=== PATIENT | male | born 1925 | race Caucasian/White ===

== ENCOUNTER 2016-07-03 20:49 | Inpatient (IN) | payer MEDICARE, OTHER ==
[2016-07-03] MEDS ORDERED: Furosemide IV* 10 MG/ML VIAL (40 MG) IV ONE (20:55)
[2016-07-03 21:16] LABS: Hematocrit 40 % (42-52); Hemoglobin 12.9 g/dl (14.0-18.0); Mean Corpuscular HGB Conc 32 g/dl (31-36); Mean Corpuscular Hemoglobin 31 pg (27-31); Mean Corpuscular Volume 95 fL (80-94); Mean Platelet Volume 9 um3 (7.4-10.4); Red Blood Count 4.19 10^6/ul (4.0-5.4); Red Cell Distribution Width 14 % (10.5-15); White Blood Count 7.5 10^3/ul (3.5-10.8)
[2016-07-03 21:33] LABS: Albumin 3.6 g/dL (3.2-5.2); BUN/Creatinine Ratio 12.8 (8-20); Calcium 8.8 mg/dL (8.6-10.3); EGFR African American 54.2 (>60); EGFR Non-African American 42.1 (>60); Globulin 2.4 g/dL (2-4); Total Bilirubin 0.5 mg/dL (0.2-1.0)
[2016-07-03 21:35] LABS: Troponin I 0.02 ng/mL (<0.04)
--- NOTE | 2016-07-03 22:21 | RAD ---
Indication: Shortness of breath. 2 views of the chest demonstrates cardiomegaly. Patient is status post tracer thoracotomy. Pacemaker leads are in place. Interstitial edema consistent with CHF is noted. IMPRESSION: Cardiomegaly. Interstitial edema consistent with CHF is noted. Pacemaker leads are in place.
--- NOTE | 2016-07-03 22:25 | ED ---
Nichole Godoy Anna, scribed for Harris White MD on 07/03/16 at 2100 . Shortness of Breath - HPI Summary HPI Summary: Patient is an 89 y/o male coming to [facility] presenting with the gradual onset of SOB that began quite some time ago. He wakes up at night unable to breathe. Per EMS, the patient had an episode of respiratory distress en route to [facility]. They report his history is significant for CHF and he has bilateral leg edema. The staff at his alf described him as clammy. He denies chest pain. He moved to [place] one month ago from [facility] and reports that he has been changing doctors. He has an appointment scheduled for a PCP in six days. He reports GI issues at baseline, including bloating. He has not had a regular BM in one month. - History of Current Complaint Hx Obtained From: Patient, EMS Onset/Duration: Gradual Onset, Still Present Current Severity: Moderate - Allergy/Home Medications Allergies/Adverse Reactions: Allergies Allergy/AdvReac Type Severity Reaction Status Date / Time Clarithromycin [From Biaxin] Allergy GI Upset Verified 07/03/16 21:21 Spironolactone Allergy Unknown Verified 07/03/16 21:42 Reaction Details Home Medications: Home Medications Albuterol HFA INHALER* [Ventolin HFA Inhaler*] 1 puff INH Q4H PRN 07/03/16 [ History Confirmed 07/03/16] Aspirin [Aspirin 81 MG TAB] 81 mg PO DAILY 07/03/16 [History Confirmed 07/03/16] Budesonide/Formote 160/4.5(NF) [Symbicort 160/4.5 (NF)] 1 puff INH BID 07/03/16 [History Confirmed 07/03/16] Furosemide [Lasix] 20 mg PO DAILY 07/03/16 [History Confirmed 07/03/16] Isosorbide Mononitrate (NF) 07/03/16 [History] Levothyroxine TAB* [Synthroid TAB*] 137 mcg PO DAILY 07/03/16 [History Confirmed 07/03/16] Metoprolol Tartrate 75 mg PO BEDTIME 07/03/16 [History Confirmed 07/03/16] Metoprolol Tartrate [Lopressor] 100 mg PO DAILY 07/03/16 [History Confirmed 10/12] Multiple Vitamins W/ Minerals [Multivitamin Men] 1 tab PO DAILY 07/03/16 [ History Confirmed 07/03/16] [place] 3 Fatty Wwanu-Gobtwr-Ecv [[facility]] 1 cap PO DAILY 07/03/16 [ History] Omeprazole [Prilosec] 20 mg PO DAILY 07/03/16 [History Confirmed 07/03/16] Simvastatin TAB(NF) [Zocor(NF)] 20 mg PO BEDTIME 07/03/16 [History Confirmed 10/12] Tamsulosin CAP* [Flomax CAP*] 0.4 mg PO BEDTIME 07/03/16 [History Confirmed 10/12] PMH/Surg Hx/FS Hx/Imm Hx Cardiovascular History: Reports: Hx Congestive Heart Failure, Hx Hypercholesterolemia, Hx Hypertension Respiratory History: Reports: Hx Chronic Obstructive Pulmonary Disease (COPD) GI History: Reports: Hx Gastroesophageal Reflux Disease History: Reports: Other Problems/Disorders - CKD - Family History Known Family History: Positive: Cardiac Disease - Hx CAD <55 in two older brothers, Hypertension - Social History Occupation: Retired Lives: [facility] Hx Substance Use: No Substance Use Type: Reports: None Review of Systems Positive: Skin Diaphoresis - per [facility] staff Negative: Chest Pain Positive: Shortness Of Breath Gastrointestinal: Other - irregular BM, baseline for one month Positive: Edema - bilateral leg All Other Systems Reviewed And Are Negative: Yes Physical Exam Triage Information Reviewed: Yes Vital Signs On Initial Exam: Temp Pulse Resp BP Pulse Ox 97.1 F 74 18 122/61 99 07/03/16 21:21 07/03/16 21:21 07/03/16 21:21 07/03/16 21:21 07/03/16 21:21 Vital Signs Reviewed: Yes Appearance: Positive: Well-Appearing - moderate sob, No Pain Distress Skin: Positive: Warm Head/Face: Positive: Normal Head/Face Inspection Eyes: Positive: DOMINIQUE ENT: Positive: Hearing grossly normal Neck: Positive: Supple Respiratory/Lung Sounds: Positive: Breath Sounds Present, Decreased Breath Sounds, Rales - bibasilar Cardiovascular: Positive: RRR Abdomen Description: Positive: Nontender, Soft Musculoskeletal: Positive: Strength/ROM Intact, Edema Left, Edema Right - bilat 3+ pitting edema Neurological: Positive: Alert, Oriented to Person Place, Time Psychiatric: Positive: Affect/Mood Appropriate Diagnostics - Vital Signs Vital Signs Temp Pulse Resp BP Pulse Ox 07/03/16 22:10 69 16 126/73 100 07/03/16 22:00 71 18 98 07/03/16 21:31 70 19 98 07/03/16 21:30 132/72 07/03/16 21:21 97.1 F 74 18 122/61 99 07/03/16 20:57 97.1 F 77 20 120/95 100 - Laboratory Lab Results: Lab Results 07/03/16 07/03/16 07/03/16 Range/Units 21:03 21:03 21:03 WBC 7.5 (3.5-10.8) 10^3/ul RBC 4.19 (4.0-5.4) 10^6/ul Hgb 12.9 L (14.0-18.0) g/dl Hct 40 L (42-52) % MCV 95 H (80-94) fL MCH 31 (27-31) pg MCHC 32 (31-36) g/dl RDW 14 (10.5-15) % Plt Count 194 (150-450) 10^3/ul MPV 9 (7.4-10.4) um3 Neut % (Auto) 73.3 (38-83) % Lymph % (Auto) 15.1 L (25-47) % [place] % (Auto) 8.0 (1-9) % Eos % (Auto) 2.2 (0-6) % Baso % (Auto) 1.4 (0-2) % Absolute Neuts (auto) 5.5 (1.5-7.7) 10^3/ul Absolute Lymphs (auto) 1.1 (1.0-4.8) 10^3/ul Absolute Monos (auto) 0.6 (0-0.8) 10^3/ul Absolute Eos (auto) 0.2 (0-0.6) 10^3/ul Absolute Basos (auto) 0.1 (0-0.2) 10^3/ul Absolute Nucleated RBC 0.01 10^3/ul Nucleated RBC % 0.1 INR (Anticoag Therapy) (0.89-1.11) Sodium 135 (133-145) mmol/L Potassium 4.0 (3.5-5.0) mmol/L Chloride 102 (101-111) mmol/L Carbon Dioxide 27 (22-32) mmol/L Anion Gap 6 (2-11) mmol/L BUN 20 (6-24) mg/dL Creatinine 1.56 H (0.67-1.17) mg/dL Est GFR ( Amer) 54.2 (>60) Est GFR (Non-Af Amer) 42.1 (>60) BUN/Creatinine Ratio 12.8 (8-20) Glucose 132 H (70-100) mg/dL Lactic Acid 1.9 (0.5-2.0) mmol/L Calcium 8.8 (8.6-10.3) mg/dL Total Bilirubin 0.50 (0.2-1.0) mg/dL AST 8 L (13-39) U/L ALT 7 (7-52) U/L Alkaline Phosphatase 45 (34-104) U/L Troponin I 0.02 (<0.04) ng/mL B-Natriuretic Peptide ( - 100) pg/mL Total Protein 6.0 L (6.4-8.9) g/dL Albumin 3.6 (3.2-5.2) g/dL Globulin 2.4 (2-4) g/dL Albumin/Globulin Ratio 1.5 (1-3) Influenza A (Rapid) (Negative) Influenza B (Rapid) (Negative) 07/03/16 07/03/16 07/03/16 Range/Units 21:03 21:03 21:21 WBC (3.5-10.8) 10^3/ul RBC (4.0-5.4) 10^6/ul Hgb (14.0-18.0) g/dl Hct (42-52) % MCV (80-94) fL MCH (27-31) pg MCHC (31-36) g/dl RDW (10.5-15) % Plt Count (150-450) 10^3/ul MPV (7.4-10.4) um3 Neut % (Auto) (38-83) % Lymph % (Auto) (25-47) % [place] % (Auto) (1-9) % Eos % (Auto) (0-6) % Baso % (Auto) (0-2) % Absolute Neuts (auto) (1.5-7.7) 10^3/ul Absolute Lymphs (auto) (1.0-4.8) 10^3/ul Absolute Monos (auto) (0-0.8) 10^3/ul Absolute Eos (auto) (0-0.6) 10^3/ul Absolute Basos (auto) (0-0.2) 10^3/ul Absolute Nucleated RBC 10^3/ul Nucleated RBC % INR (Anticoag Therapy) 0.94 (0.89-1.11) Sodium (133-145) mmol/L Potassium (3.5-5.0) mmol/L Chloride (101-111) mmol/L Carbon Dioxide (22-32) mmol/L Anion Gap (2-11) mmol/L BUN (6-24) mg/dL Creatinine (0.67-1.17) mg/dL Est GFR ( Amer) (>60) Est GFR (Non-Af Amer) (>60) BUN/Creatinine Ratio (8-20) Glucose (70-100) mg/dL Lactic Acid (0.5-2.0) mmol/L Calcium (8.6-10.3) mg/dL Total Bilirubin (0.2-1.0) mg/dL AST (13-39) U/L ALT (7-52) U/L Alkaline Phosphatase (34-104) U/L Troponin I (<0.04) ng/mL B-Natriuretic Peptide 278 H ( - 100) pg/mL Total Protein (6.4-8.9) g/dL Albumin (3.2-5.2) g/dL Globulin (2-4) g/dL Albumin/Globulin Ratio (1-3) Influenza A (Rapid) Negative (Negative) Influenza B (Rapid) Negative (Negative) Result Diagrams: 07/03/16 21:03 07/03/16 21:03 Lab Statement: Any lab studies that have been ordered have been reviewed, and results considered in the medical decision making process. - Radiology CXR Xray Interpretation: Positive (See Comments) Radiology Interpretation Completed By: Radiologist - IMPRESSION: Cardiomegaly. Interstitial edema consistent with CHF is noted. Pacemaker leads are in place. - EKG 2121 Cardiac Rate: NL - [address] Segment: Normal Ectopy: None EKG Interpretation: paced rhythm with 1:1 ventricular conduction. Re-Evaluation - Re-Evaluation First Eval Change: Improved - mildly improved but still sob Course/Dx - Course Assessment/Plan: Patient is an 89 y/o male coming to [facility] presenting with the gradual onset of SOB that began quite some time ago. He wakes up at night unable to breathe. Per EMS, the patient had an episode of respiratory distress en route to [facility]. They report his history is significant for CHF and he has bilateral leg edema. The staff at his alf described him as clammy. He denies chest pain. He moved to [place] one month ago from [facility] and reports that he has been changing doctors. He has an appointment scheduled for a PCP in six days. He reports GI issues at baseline, including bloating. He has not had a regular BM in one month. The patient was given Furosemide IV in the ED course. Labs reveal BNP of 278, AST of 8, Hgb of 12.9, Hct of 40, MCV of 95, Creatinine of 1.56, Glucose of 132, and total protein of 6.0. EKG reveals paced rhythm at 70 bpm with 1:1 ventricular conduction. CXR reveals cardiomegaly. Interstitial edema consistent with CHF is noted. Pacemaker leads are in place. Discussed patient care with Dr. Dietrich (hospitalist ) at 2320. Agrees to accept patient for admission. Patient is agreeable with plan. - Diagnoses Provider Diagnoses: CHF (congestive heart failure) - Physician Notifications Discussed Care of Patient With: Dr. Dietrich (hospitalist) at 2320. Agrees to accept patient for admission. Instructed by Provider To: Admit As Inpatient - Critical Care Time Critical Care Time: 30-74 min Discharge - Discharge Plan Condition: Fair Disposition: ADMITTED TO [facility] documentation as recorded by the Nichole elliott Anna accurately reflects the service I personally performed and the decisions made by me, Harris White MD.
[2016-07-03] MEDS ORDERED: Senna TAB PO PRN (23:24)
[2016-07-03] MEDS ORDERED: Acetaminophen TAB* 325 MG PO PRN (23:24)
[2016-07-03] MEDS ORDERED: Ondansetron INJ* 2 MG/ML VIAL IV PRN (23:24)
[2016-07-03] MEDS ORDERED: Docusate CAP* 100 MG PO PRN (23:24)
[2016-07-03] MEDS ORDERED: Al Hydrox/Mg Hydrox/Simet LIQ* 30 ML UDC PO PRN (23:24)
[2016-07-03] MEDS ORDERED: Albuterol HFA INHALER* 8 gm MDI INH PRN (23:32)
[2016-07-03] MEDS ORDERED: Vancomycin(*) 0 MG in NS 0.9% 250 ML* 250 ML IVPB SCH (23:45)
[2016-07-03] MEDS ORDERED: Vancomycin(*) 1,500 MG in NS 0.9% 250 ML* 250 ML IVPB ONE (23:45)
[2016-07-03] MEDS ORDERED: Vancomycin per Pharmacy* NOTE FOLLOW UP SCH (23:45)
[2016-07-03] MEDS ORDERED: Atorvastatin* 10 MG TAB PO SCH (23:45)
[2016-07-04 00:05] LABS: C Reactive Protein 1.03 mg/L (< 5.00); Magnesium 2.2 mg/dL (1.9-2.7)
[2016-07-04] MEDS: Tamsulosin CAP* 0.4 MG PO SCH ×3 (01:11→20:21)
--- NOTE | 2016-07-04 03:25 | HP ---
CC: Mati Yoon MD HISTORY AND PHYSICAL: DATE OF ADMISSION: 07/03/16 PRIMARY CARE PHYSICIAN: Mati Yoon MD TIME OF EVALUATION: 2300 CHIEF COMPLAINT: Shortness of breath. HISTORY OF PRESENT ILLNESS: This is an 89-year-old male with a past medical history of CHF, COPD, and CKD, who presents to the emergency department from [place] with worsening shortness of breath. The patient states he has had over the past month worsening abdominal distention, lower extremity swelling, and worsening orthopnea, and paroxysmal nocturnal dyspnea. He states every time he lies down or bends over, he has significant amount of shortness of breath. He has had weight gain of 15 pounds over the past month. He has had decrease in appetite. He has been complaining of issues with his stools. He has had loose stools with lot of gas and slimy stool. He has been maintaining a lactulose free diet. He states that he has been sent to see Gastroenterology for potential an EGD and he is transitioning to a new hiv/aids care nurse as the patient was recently moved from [facility] in April to [facility] for more assistance. The patient was recently seen for his cellulitis of lower extremities and was started on antibiotic on the , unclear what the antibiotic was. He states as mentioned had decrease in appetite. He had an egg salad sandwich. He states he occasionally add salt to his soup, but denies any high salty food content. He denies any chest pain. No cough, no fevers or chills. He has had intermittent nausea, no vomiting, otherwise remaining review of systems negative. In the emergency room, the patient had labs, imaging. He was given 40 mg of Lasix IV and was referred to the hospitalist service for further evaluation. PAST MEDICAL HISTORY: 1. History of coronary artery disease, status post coronary artery bypass graft in 2002 and multiple stent placements. He is currently being transitioned of hiv/aids care nurse from Dr. Byrd in [place] to Dr. Mars. 2. History of CHF with preserved EF. 3. COPD. 4. CKD. 5. Osteoarthritis. 6. GERD. 7. Hyperlipidemia. 8. Chronic lymphedema. 9. BPH. 10. Obstructive sleep apnea, on CPAP. 11. 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 12. Hypertension. 13. Hypothyroidism. 14. Obesity. 15. Neuropathy. PAST SURGICAL HISTORY: History of pacemaker and ICD placement and as mentioned , coronary artery bypass graft in 2002. MEDICATIONS: 1. Metoprolol tartrate 100 mg p.o. daily. 2. Synthroid 137 mcg p.o. daily. 3. Lasix 20 mg daily. 4. Aspirin 81 mg daily. 5. Symbicort 160/4.5 one puff inhaled b.i.d. 6. Albuterol 1 puff every 4 hours as needed. 7. Multivitamin daily. 8. Tamsulosin 0.4 mg p.o. at bedtime. 9. Zocor 20 mg at bedtime. 10. Prilosec 20 mg daily. 11. Metoprolol tartrate 75 mg at bedtime. 12. Isosorbide mononitrate daily. 13. [place] 3 fatty acids daily. ALLERGIES: CLARITHROMYCIN, SPIRONOLACTONE. FAMILY HISTORY: Mother in her 70s from an [place]. Father from alcohol complications. SOCIAL HISTORY: As mentioned, the patient recently transitioned from independent living in [place] to [facility]. He is wheelchair bound. His healthcare proxy is his daughter, Deborah Kidd. Phone number [phone]. CODE STATUS: DNR/DNI. MOLST form will be completed this evening. He is a remote smoker of [id number], quit in 1966. No alcohol use, no illicit drug use. He is a [employer] [place] [employer] . REVIEW OF SYSTEMS: As mentioned in the HPI. PHYSICAL EXAMINATION GENERAL: In no acute distress. Resting comfortably with the family at the bedside. VITAL SIGNS: Temp 97.1, pulse rate 80, respiratory rate 17, oxygen saturation 95% on 2 L, blood pressure 141/71. HEENT: Pupils are equal and reactive, anicteric. Head normocephalic. Oropharynx, mucous membranes moist. No erythema or exudate NECK: Supple. No lymphadenopathy. RESPIRATORY: Diminished breath sounds. Bibasilar crackles. CARDIAC: Regular rate and rhythm. Soft systolic murmur heard throughout. ABDOMEN: Significant at distention. Tenderness diffusely. More pronounced tenderness over the left side. EXTREMITIES: +2 pretibial edema with bilateral erythema. The patient with a 2 cm purulent lesion on the left lower medial aspect of the extremity and he has a 2 cm purulent lesion on the right lateral aspect of the lower extremity. Distal pulses. NEUROLOGIC: Alert and oriented x3. No focal neurologic deficits. LABORATORY DATA: White count 7.5, hemoglobin 12.9, hematocrit 40, platelet 194. INR is 0.94. Sodium 135, potassium 4, chloride 102, bicarb 27, BUN 20, creatinine 1.56, glucose 132, troponin 0.02, BNP 278. Flu is negative. RADIOGRAPHIC DATA: Chest x-ray: Cardiomegaly, interstitial edema consistent with CHF as noted. EKG shows atrial-sensed, ventricular-paced complexes. ASSESSMENT: This is an 89-year-old male with past medical history of congestive heart failure, coronary artery disease, and chronic kidney disease, who presents to the emergency room with abdominal distention, pain, and shortness of breath and lower extremity swelling. 1. Shortness of breath. Assessment: The patient's shortness of breath is most likely associated with acute decompensated congestive heart failure. I suspect he has ascites. He has significant amount of lymphedema and orthopnea. He has not had a recent echocardiogram according to the family, it will be worthwhile to reevaluate this. He has no chest pain to suggest any ischemic event. It appears that he has had decreased appetite and low salt intake. It is unclear the etiology behind the onset of his heart failure. Plan: We will admit him to telemetry. We will trend his troponin. Obtain an echocardiogram. Low salt diet. Fluid restriction. I's and O's and daily weights and we will continue on Lasix 40 mg IV daily. We will obtain his records from his hiv/aids care nurse as well. We will continue him on his metoprolol as prescribed and his aspirin. 2. Abdominal pain: Assessment: I suspect most of this is secondary to ascites from his heart failure. Although he has had abnormal stools and abdominal pain, which is not all typical with ascites and the patient was planning to go to humanities professor for further evaluation. Plan: I do not think it is unreasonable to obtain a CAT scan to rule out any new further etiology behind his abdominal discomfort. I am also ordering a C. diff as the patient was recently started on antibiotics for his cellulitis. 3. Chronic lymphedema with purulent drainage. Assessment: The patient with significant lymphedema and 2 purulent lesions on each lower extremity. We will put in for wound culture and wound care evaluation and start him on vancomycin until the culture returns and Fredy wrap his lower extremities in hopes Lasix will also help with swelling as well. CHRONIC MEDICAL PROBLEMS: 1. COPD. Resume his inhalers as prescribed. 2. Hyperlipidemia. Continue Zocor. 3. GERD. Continue with Prilosec. 4. Hypothyroidism. Resume his Synthroid. 5. CAD. As mentioned, we will resume his metoprolol. We will increase his Lasix and his baby aspirin. 6. Obstructive sleep apnea. Resume CPAP at bedtime. 7. FEN. As mentioned, low salt. Fluid restricted. Heart healthy diet. 8. DVT prophylaxis. The patient scores high risk. I will place him on heparin subcu t.i.d. 9. Code status. The patient is a DNR/DNI. We will fill out a MOLST form this evening. PATIENT TIME: Greater than 60 minutes spent doing the history and physical, more than half time spent in direct patient contact. [id number]/CPS #: [id number] AGUSTIN
[2016-07-04 04:03] LABS: Urine Bilirubin Negative (Negative); Urine Glucose Negative (Negative); Urine Nitrite Negative (Negative)
[2016-07-04 05:58] LABS: Hematocrit 38 % (42-52); Hemoglobin 12.5 g/dl (14.0-18.0); Mean Corpuscular HGB Conc 33 g/dl (31-36); Mean Corpuscular Hemoglobin 31 pg (27-31); Mean Corpuscular Volume 94 fL (80-94); Mean Platelet Volume 8 um3 (7.4-10.4); Red Blood Count 4.07 10^6/ul (4.0-5.4); Red Cell Distribution Width 14 % (10.5-15); White Blood Count 6.8 10^3/ul (3.5-10.8)
[2016-07-04 06:37] LABS: BUN/Creatinine Ratio 13.2 (8-20); Calcium 8.7 mg/dL (8.6-10.3); EGFR African American 56.2 (>60); EGFR Non-African American 43.7 (>60); Potassium 3.5 mmol/L (3.5-5.0)
[2016-07-04] MEDS: Levothyroxine TAB* 137 MCG TAB PO SCH (06:51)
[2016-07-04] MEDS: Heparin VIAL(*) 5000 UNITS/ML VIAL (FIVE THOUSAND) SUBCUT SCH ×3 (06:51→22:05)
--- NOTE | 2016-07-04 07:16 | RAD ---
INDICATION: 89-year-old with abdominal pain COMPARISON: None TECHNIQUE: Noncontrast axial source images were acquired from the level hemidiaphragms to the symphysis pubis. The examination was ordered with oral contrast only. Lung bases: There is cardiomegaly with sternotomy and pacemaker artifact. There is mild basilar atelectasis with a moderate size right-sided pleural effusion and a tiny left-sided effusion Liver: The liver is normal in size. Noncontrast imaging shows no evidence of a hepatic mass or ductal dilatation. Gallbladder: Cholecystectomy. Spleen: The spleen is normal in size. The noncontrast CT appearance is normal. Pancreas: Noncontrast imaging shows no pancreatic mass or ductal dilitation. The pancreas is atrophic and largely fatty replaced Adrenal glands: No masses are identified. Kidneys/Bladder: There is no evidence of nephrolithiasis or CT evidence of hydronephrosis. Noncontrast imaging shows no evidence of a renal mass. The bladder is unremarkable.. Adenopathy: There is no evidence of intraperitoneal or retroperitoneal adenopathy. Evaluation is limited without oral contrast. Fluid collections: There are no free or localized fluid collections. Vessels: There are atherosclerotic changes of the aorta and iliac vessels. There is no focal aneurysm. The IVC appears normal Pelvic organs: The prostate is enlarged GI tract: Evaluation of the bowel is limited without oral contrast. The stomach and small bowel are unremarkable. There is moderate stool throughout the colon with colonic redundancy There are no obstructive findings. The appendix is visualized and appears normal. Soft tissues: No soft tissue abnormalities of the extraperitoneal abdomen or pelvis are identified. Osseous structures: There are no acute osseous findings. IMPRESSION: 1. Mild bibasilar atelectasis with pleural effusions right greater than left. 2. Cholecystectomy 3. Moderate retained stool with colonic redundancy. 4. No acute CT findings. No mass or inflammatory changes.
[2016-07-04] MEDS ORDERED: Metoprolol Tartrate TAB* 100 MG TAB PO ONE (09:00)
[2016-07-04] MEDS ORDERED: Metoprolol Tartrate TAB* 100 MG TAB PO SCH (09:00)
[2016-07-04] MEDS ORDERED: Metoprolol Tartrate TAB* 50 mg PO SCH ×2 (09:00→21:00)
[2016-07-04] MEDS: Aspirin EC Low Dose* 81 MG TAB.EC PO SCH (09:14)
[2016-07-04] MEDS: Furosemide IV* 10 MG/ML VIAL (40 MG) IV SCH (09:14)
[2016-07-04] MEDS: Isosorbide Mononitrate ER TAB* 30 MG PO SCH (09:14)
[2016-07-04] MEDS: Potassium Chlor TAB* 20 MEQ TAB.ER PO SCH (09:14)
[2016-07-04] MEDS: Omeprazole CAP* 20 MG PO SCH (09:14)
[2016-07-04] MEDS: Mometasone/Formoter 200/5 MDI INH SCH ×2 (10:01→20:05)
--- NOTE | 2016-07-04 15:29 | PN ---
Subjective Date of Service: 07/04/16 Interval History: . Interviewed and examined patient at bedside; Discussed case with Dr. Dietrich ; Reviewed previous notes and radiology results; patient feeling better -- still can't lie flat. denies CP. doesn't walk, so judging his orthopnea U-out good overnight -- another IV lasix dose given this AM. Family History: Unchanged from Admission Social History: Unchanged from Admission Past Medical History: Unchanged from Admission Objective Active Medications: . Acetaminophen (Tylenol Tab*) 650 mg PO Q4H PRN PRN Reason: FEVER/PAIN Last Admin: 07/04/16 09:24 Dose: 650 mg Al Hydrox/Mg Hydrox/Simethicone (Maalox Plus*) 30 ml PO Q6H PRN PRN Reason: INDIGESTION Albuterol (Ventolin Hfa Inhaler*) 1 puff INH Q4H PRN PRN Reason: WHEEZING Aspirin (Aspirin Ec Low Dose*) 81 mg PO DAILY [facility] Last Admin: 07/04/16 09:14 Dose: 81 mg Atorvastatin Calcium (Lipitor*) 10 mg PO 2100 [facility] Docusate Sodium (Colace Cap*) 100 mg PO BID PRN PRN Reason: CONSTIPATION Furosemide (Lasix Iv*) 40 mg IV DAILY [facility] Last Admin: 07/04/16 09:14 Dose: 40 mg Heparin Sodium (Porcine) (Heparin Vial(*)) 5,000 units SUBCUT Q8HR [facility] Last Admin: 07/04/16 14:55 Dose: 5,000 units Vancomycin HCl 1,500 mg/ (Sodium Chloride) 250 mls @ 166.667 mls/hr IVPB Q24H [facility] Isosorbide Mononitrate (Imdur Er Tab*) 30 mg PO DAILY [facility] Last Admin: 07/04/16 09:14 Dose: 30 mg Levothyroxine Sodium (Synthroid Tab*) 137 mcg PO 0600 [facility] Last Admin: 07/04/16 06:51 Dose: 137 mcg Metoprolol Tartrate (Lopressor Tab*) 75 mg PO BEDTIME [facility] Mometasone Furoate/Formoterol Fumar (Dulera 200/5 Mdi*) 1 puff INH BID [facility] PRN Reason: Protocol Last Admin: 07/04/16 10:01 Dose: 1 puff Omeprazole (Prilosec Cap*) 20 mg PO DAILY [facility] Last Admin: 07/04/16 09:14 Dose: 20 mg Ondansetron HCl (Zofran Inj*) 4 mg IV Q4H PRN PRN Reason: NAUSEA/VOMITING Pharmacy Consult (Vancomycin Per Pharmacy*) 1 note FOLLOW UP .VANC PER PHARMACY [facility] Pharmacy Profile Note (Vancomycin Trough Check) 1 note FOLLOW UP 0145 ONE Stop: 07/07/16 01:46 Potassium Chloride (Klor Con Er Tab*) 20 meq PO DAILY [facility] Last Admin: 07/04/16 09:14 Dose: 20 meq Senna (Senokot Tab*) 1 tab PO BID PRN PRN Reason: CONSTIPATION Tamsulosin HCl (Flomax Cap*) 0.4 mg PO BEDTIME [facility] Last Admin: 07/04/16 01:16 Dose: Not Given . Vital Signs 07/03/16 07/03/16 07/04/16 23:30 23:56 00:00 Temperature Pulse Rate 76 70 Respiratory 17 16 23 Rate Blood Pressure 141/71 (mmHg) O2 Sat by Pulse 95 99 Oximetry 07/04/16 07/04/16 07/04/16 00:01 00:53 03:27 Temperature 98.2 F 98.1 F Pulse Rate 69 79 70 Respiratory 20 24 16 Rate Blood Pressure 124/71 134/90 130/65 (mmHg) O2 Sat by Pulse 98 92 100 Oximetry Oxygen Devices in Use Now: Nasal Cannula Appearance: obese, + CHF Eyes: No Scleral Icterus, PERRLA Ears/Nose/Mouth/Throat: NL Teeth, Lips, Gums Neck: NL Appearance and Movements; NL JVP Respiratory: Symmetrical Chest Expansion and Respiratory Effort, Clear to Auscultation Cardiovascular: NL Sounds; No Murmurs; No JVD Abdominal: NL Sounds; No Tenderness; No Distention Extremities: - - 3+ LE Edema bilaterally. Skin: - - + skin breakdown in lower legs Neurological: Alert and Oriented x 3 Lines/Tubes/Other Access: Clean, Dry and Intact Peripheral IV Nutrition: Taking PO's Result Diagrams: 07/04/16 05:16 07/04/16 05:16 Microbiology and Other Data: Microbiology 07/04/16 02:20 Gram Stain - Final Leg Right 07/04/16 01:00 Nasal Screen MRSA (PCR)(MANUELITO) - Final Nasal Mrsa Negative Assess/Plan/Problems-Billing . Assessment: 89 yo man with CHF secondary to fluid overload. Current Medications: - Acetaminophen (Tylenol Tab) 650 mg PO Q4H PRN FEVER/PAIN - Al Hydrox/Mg Hydrox/Simethicone (Maalox Plus) 30 ml PO Q6H PRN INDIGESTION - Albuterol (Ventolin Hfa Inhaler*) 1 puff INH Q4H PRN WHEEZING - Aspirin (Aspirin Ec Low Dose) 81 mg PO DAILY - Atorvastatin Calcium (Lipitor) 10 mg PO 2100 - Docusate Sodium (Colace Cap) 100 mg PO BID PRN CONSTIPATION - Furosemide (Lasix Iv) 40 mg IV DAILY - Heparin Sodium (Porcine) (Heparin Vial(*)) 5,000 units SUBCUT Q8HR - Vancomycin HCl 1,500 mg/IVPB Q24H - Isosorbide Mononitrate (Imdur Er Tab) 30 mg PO DAILY - Levothyroxine Sodium (Synthroid Tab) 137 mcg PO 0600 - Metoprolol Tartrate (Lopressor Tab) 75 mg PO BEDTIME - Mometasone Furoate/Formoterol Fumar (Dulera 200/5 Mdi) 1 puff INH BID - Omeprazole (Prilosec Cap) 20 mg PO DAILY - Ondansetron HCl (Zofran Inj) 4 mg IV Q4H PRN NAUSEA/VOMITING - Potassium Chloride (Klor Con Er Tab) 20 meq PO DAILY - Senna (Senokot Tab) 1 tab PO BID PRN CONSTIPATION - Tamsulosin HCl (Flomax Cap) 0.4 mg PO BEDTIME [facility] . 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 - Check ECHO 07/05 - IV lasix daily or BID; follow strict I/O - daiy weights - On BB, ASA, Statin, and Nitrate (imdur) (2) Cellulitis of leg without foot Current Visit: Yes Status: Acute Priority: High Code(s): L03.119 - CELLULITIS OF UNSPECIFIED PART OF LIMB Comment: - On IV Vanco - Purulent drainage in setting of CHRONIC LYMPHEDEMA (3) COPD (chronic obstructive pulmonary disease) Current Visit: Yes Status: Acute Code(s): J44.9 - CHRONIC OBSTRUCTIVE PULMONARY DISEASE, UNSPECIFIED SNOMED Code(s): 40222935 (4) CKD (chronic kidney disease) stage 3, GFR 30-59 ml/min Current Visit: Yes Status: Chronic Priority: Medium Code(s): N18.3 - CHRONIC KIDNEY DISEASE, STAGE 3 (MODERATE) Comment: - Acute on chronic -- follow Creatinine - hard to know his true baseline in this situation. (5) Obesity (BMI 30.0-34.9) Current Visit: Yes Status: Chronic Priority: High Code(s): E66.9 - OBESITY , UNSPECIFIED Comment: - noted - low salt / calorie restricted diet. (6) TRISHA on CPAP Current Visit: Yes Status: Chronic Priority: High Code(s): G47.33 - OBSTRUCTIVE SLEEP APNEA (ADULT) (PEDIATRIC); Z99.89 - DEPENDENCE ON OTHER ENABLING MACHINES AND DEVICES Comment: - CPAP at night (7) BPH (benign prostatic hyperplasia) Current Visit: Yes Status: Chronic Priority: Medium Code(s): N40.0 - BENIGN PROSTATIC HYPERPLASIA WITHOUT LOWER URINRY TRACT SYMP (8) Hypothyroidism Current Visit: Yes Status: Chronic Priority: High Code(s): E03.9 - HYPOTHYROIDISM, UNSPECIFIED Comment: - continue replacement therapy (9) GERD (gastroesophageal reflux disease) Current Visit: Yes Status: Chronic Priority: Medium Code(s): K21.9 - GASTRO-ESOPHAGEAL REFLUX DISEASE WITHOUT ESOPHAGITIS Comment: - On PPI (10) DNR (do not resuscitate) Current Visit: Yes Status: Chronic Priority: High
[2016-07-04] MEDS ORDERED: Potassium Chlor TAB* 10 MEQ TAB.ER PO ONE (15:38)
[2016-07-04] MEDS ORDERED: Furosemide IV* 10 MG/ML 10 ML VIAL (100 MG) IV ONE (15:38)
[2016-07-04] MEDS: Metoprolol Tartrate TAB* 50 mg PO SCH (20:21)
[2016-07-04] MEDS: Atorvastatin* 10 MG TAB PO SCH (20:22)
[2016-07-05] MEDS: Vancomycin(*) 1,500 MG in NS 0.9% 250 ML* 250 ML IVPB SCH (02:23)
[2016-07-05 05:41] LABS: BUN/Creatinine Ratio 13.4 (8-20); Calcium 8.8 mg/dL (8.6-10.3); EGFR African American 53.8 (>60); EGFR Non-African American 41.8 (>60); Magnesium 2.2 mg/dL (1.9-2.7); Phosphorus 3.9 mg/dL (2.5-5.0)
[2016-07-05] MEDS: Heparin VIAL(*) 5000 UNITS/ML VIAL (FIVE THOUSAND) SUBCUT SCH ×3 (05:50→20:51)
[2016-07-05] MEDS: Levothyroxine TAB* 137 MCG TAB PO SCH (05:50)
[2016-07-05] MEDS: Furosemide IV* 10 MG/ML VIAL (40 MG) IV SCH (07:56)
[2016-07-05] MEDS: Potassium Chlor TAB* 20 MEQ TAB.ER PO SCH (07:57)
[2016-07-05] MEDS: Metoprolol Tartrate TAB* 50 mg PO SCH ×2 (07:57→20:49)
[2016-07-05] MEDS: Omeprazole CAP* 20 MG PO SCH (07:57)
[2016-07-05] MEDS: Aspirin EC Low Dose* 81 MG TAB.EC PO SCH (07:57)
[2016-07-05] MEDS: Isosorbide Mononitrate ER TAB* 30 MG PO SCH (07:57)
[2016-07-05] MEDS: Mometasone/Formoter 200/5 MDI INH SCH ×2 (08:37→20:00)
[2016-07-05] MEDS ORDERED: Potassium Chlor TAB* 10 MEQ TAB.ER PO ONE (17:29)
[2016-07-05] MEDS ORDERED: Magnesium Oxide TAB* 400 MG PO ONE (17:29)
[2016-07-05] MEDS ORDERED: Furosemide IV* 10 MG/ML 10 ML VIAL (100 MG) IV ONE (17:29)
--- NOTE | 2016-07-05 17:30 | PN ---
Subjective Date of Service: 07/05/16 Interval History: . patient greatly improved this AM good weight loss subjectively less abdominal swelling and less lower extremity edema. denies SOB while lying flat. Still objective extremity edema and extra water weight that can be lost --> continuing diuresis. exta dose of lasix tonight with K and Mag patient pleased by his progress. . Family History: Unchanged from Admission Social History: Unchanged from Admission Past Medical History: Unchanged from Admission Objective Active Medications: . Acetaminophen (Tylenol Tab*) 650 mg PO Q4H PRN PRN Reason: FEVER/PAIN Last Admin: 07/04/16 09:24 Dose: 650 mg Al Hydrox/Mg Hydrox/Simethicone (Maalox Plus*) 30 ml PO Q6H PRN PRN Reason: INDIGESTION Albuterol (Ventolin Hfa Inhaler*) 1 puff INH Q4H PRN PRN Reason: WHEEZING Aspirin (Aspirin Ec Low Dose*) 81 mg PO DAILY [facility] Last Admin: 07/05/16 07:57 Dose: 81 mg Atorvastatin Calcium (Lipitor*) 10 mg PO 2100 [facility] Last Admin: 07/04/16 20:22 Dose: 10 mg Docusate Sodium (Colace Cap*) 100 mg PO BID PRN PRN Reason: CONSTIPATION Furosemide (Lasix Iv*) 40 mg IV DAILY [facility] Last Admin: 07/05/16 07:56 Dose: 40 mg Heparin Sodium (Porcine) (Heparin Vial(*)) 5,000 units SUBCUT Q8HR [facility] Last Admin: 07/05/16 14:00 Dose: 5,000 units Vancomycin HCl 1,500 mg/ (Sodium Chloride) 250 mls @ 166.667 mls/hr IVPB Q24H [facility] Last Admin: 07/05/16 02:23 Dose: 166.667 mls/hr Isosorbide Mononitrate (Imdur Er Tab*) 30 mg PO DAILY [facility] Last Admin: 07/05/16 07:57 Dose: 30 mg Levothyroxine Sodium (Synthroid Tab*) 137 mcg PO 0600 [facility] Last Admin: 07/05/16 05:50 Dose: 137 mcg Metoprolol Tartrate (Lopressor Tab*) 75 mg PO BID [facility] Last Admin: 07/05/16 07:57 Dose: 75 mg Mometasone Furoate/Formoterol Fumar (Dulera 200/5 Mdi*) 1 puff INH BID [facility] PRN Reason: Protocol Last Admin: 07/05/16 08:37 Dose: 1 puff Omeprazole (Prilosec Cap*) 20 mg PO DAILY [facility] Last Admin: 07/05/16 07:57 Dose: 20 mg Ondansetron HCl (Zofran Inj*) 4 mg IV Q4H PRN PRN Reason: NAUSEA/VOMITING Pharmacy Consult (Vancomycin Per Pharmacy*) 1 note FOLLOW UP .VANC PER PHARMACY [facility] Pharmacy Profile Note (Vancomycin Trough Check) 1 note FOLLOW UP 0145 ONE Stop: 07/07/16 01:46 Potassium Chloride (Klor Con Er Tab*) 20 meq PO DAILY [facility] Last Admin: 07/05/16 07:57 Dose: 20 meq Senna (Senokot Tab*) 1 tab PO BID PRN PRN Reason: CONSTIPATION Tamsulosin HCl (Flomax Cap*) 0.4 mg PO BEDTIME [facility] Last Admin: 07/04/16 20:21 Dose: 0.4 mg Vital Signs 07/04/16 07/04/16 07/04/16 18:56 19:49 20:07 Temperature 98.1 F Pulse Rate 66 90 Respiratory 26 21 16 Rate Blood Pressure 121/63 (mmHg) O2 Sat by Pulse 100 97 Oximetry 07/04/16 07/05/16 07/05/16 23:59 04:47 08:00 Temperature 98.0 F 97.5 F Pulse Rate 70 69 Respiratory 16 20 20 Rate Blood Pressure 113/61 116/63 (mmHg) O2 Sat by Pulse 98 98 Oximetry Oxygen Devices in Use Now: Nasal Cannula Appearance: elderly and frail - but better than yesteday. Eyes: No Scleral Icterus Respiratory: Symmetrical Chest Expansion and Respiratory Effort Cardiovascular: NL Sounds; No Murmurs; No JVD Abdominal: NL Sounds; No Tenderness; No Distention Lymphatic: No Cervical Adenopathy Extremities: - - still + edema in extremities. Skin: No Rash or Ulcers Neurological: Alert and Oriented x 3, - - +ASA'CARSARMIUT Lines/Tubes/Other Access: Clean, Dry and Intact Peripheral IV Nutrition: Taking PO's Result Diagrams: 07/04/16 05:16 07/05/16 05:15 Additional Lab and Data: . Microbiology and Other Data: Microbiology 07/04/16 02:20 Gram Stain - Final Leg Right 07/04/16 01:00 Nasal Screen MRSA (PCR)(MANUELITO) - Final Nasal Mrsa Negative Assess/Plan/Problems-Billing . Assessment: 89 yo man with CHF secondary to fluid overload. Current Medications: - Acetaminophen (Tylenol Tab) 650 mg PO Q4H PRN FEVER/PAIN - Al Hydrox/Mg Hydrox/Simethicone (Maalox Plus) 30 ml PO Q6H PRN INDIGESTION - Albuterol (Ventolin Hfa Inhaler*) 1 puff INH Q4H PRN WHEEZING - Aspirin (Aspirin Ec Low Dose) 81 mg PO DAILY - Atorvastatin Calcium (Lipitor) 10 mg PO 2100 - Docusate Sodium (Colace Cap) 100 mg PO BID PRN CONSTIPATION - Furosemide (Lasix Iv) 40 mg IV DAILY - Heparin Sodium (Porcine) (Heparin Vial(*)) 5,000 units SUBCUT Q8HR - Vancomycin HCl 1,500 mg/IVPB Q24H - Isosorbide Mononitrate (Imdur Er Tab) 30 mg PO DAILY - Levothyroxine Sodium (Synthroid Tab) 137 mcg PO 0600 - Metoprolol Tartrate (Lopressor Tab) 75 mg PO BEDTIME - Mometasone Furoate/Formoterol Fumar (Dulera 200/5 Mdi) 1 puff INH BID - Omeprazole (Prilosec Cap) 20 mg PO DAILY - Ondansetron HCl (Zofran Inj) 4 mg IV Q4H PRN NAUSEA/VOMITING - Potassium Chloride (Klor Con Er Tab) 20 meq PO DAILY - Senna (Senokot Tab) 1 tab PO BID PRN CONSTIPATION - Tamsulosin HCl (Flomax Cap) 0.4 mg PO BEDTIME [facility] . 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 - Check ECHO 07/05 - IV lasix daily or BID; follow strict I/O - daiy weights - On BB, ASA, Statin, and Nitrate (imdur) (2) Cellulitis of leg without foot Current Visit: Yes Status: Acute Priority: High Code(s): L03.119 - CELLULITIS OF UNSPECIFIED PART OF LIMB Comment: - On IV Vanco - Purulent drainage in setting of CHRONIC LYMPHEDEMA (3) COPD (chronic obstructive pulmonary disease) Current Visit: Yes Status: Acute Code(s): J44.9 - CHRONIC OBSTRUCTIVE PULMONARY DISEASE, UNSPECIFIED SNOMED Code(s): 42344452 (4) CKD (chronic kidney disease) stage 3, GFR 30-59 ml/min Current Visit: Yes Status: Chronic Priority: Medium Code(s): N18.3 - CHRONIC KIDNEY DISEASE, STAGE 3 (MODERATE) Comment: - Acute on chronic -- follow Creatinine - hard to know his true baseline in this situation. (5) Obesity (BMI 30.0-34.9) Current Visit: Yes Status: Chronic Priority: High Code(s): E66.9 - OBESITY , UNSPECIFIED Comment: - noted - low salt / calorie restricted diet. (6) TRISHA on CPAP Current Visit: Yes Status: Chronic Priority: High Code(s): G47.33 - OBSTRUCTIVE SLEEP APNEA (ADULT) (PEDIATRIC); Z99.89 - DEPENDENCE ON OTHER ENABLING MACHINES AND DEVICES Comment: - CPAP at night (7) BPH (benign prostatic hyperplasia) Current Visit: Yes Status: Chronic Priority: Medium Code(s): N40.0 - BENIGN PROSTATIC HYPERPLASIA WITHOUT LOWER URINRY TRACT SYMP (8) Hypothyroidism Current Visit: Yes Status: Chronic Priority: High Code(s): E03.9 - HYPOTHYROIDISM, UNSPECIFIED Comment: - continue replacement therapy (9) GERD (gastroesophageal reflux disease) Current Visit: Yes Status: Chronic Priority: Medium Code(s): K21.9 - GASTRO-ESOPHAGEAL REFLUX DISEASE WITHOUT ESOPHAGITIS Comment: - On PPI (10) DNR (do not resuscitate) Current Visit: Yes Status: Chronic Priority: High
[2016-07-05] MEDS: Atorvastatin* 10 MG TAB PO SCH (20:49)
[2016-07-05] MEDS: Tamsulosin CAP* 0.4 MG PO SCH (20:51)
[2016-07-06] MEDS: Vancomycin(*) 1,500 MG in NS 0.9% 250 ML* 250 ML IVPB SCH (01:50)
[2016-07-06] MEDS: Levothyroxine TAB* 137 MCG TAB PO SCH (05:00)
[2016-07-06] MEDS: Heparin VIAL(*) 5000 UNITS/ML VIAL (FIVE THOUSAND) SUBCUT SCH ×3 (05:00→21:00)
[2016-07-06 06:00] LABS: BUN/Creatinine Ratio 12.8 (8-20); Calcium 8.9 mg/dL (8.6-10.3); EGFR African American 51.1 (>60); EGFR Non-African American 39.8 (>60); Magnesium 2.3 mg/dL (1.9-2.7); Potassium 3.8 mmol/L (3.5-5.0)
[2016-07-06] MEDS: Mometasone/Formoter 200/5 MDI INH SCH ×2 (09:36→21:43)
[2016-07-06] MEDS: Isosorbide Mononitrate ER TAB* 30 MG PO SCH (10:26)
[2016-07-06] MEDS: Aspirin EC Low Dose* 81 MG TAB.EC PO SCH (10:26)
[2016-07-06] MEDS: Potassium Chlor TAB* 20 MEQ TAB.ER PO SCH (10:26)
[2016-07-06] MEDS: Metoprolol Tartrate TAB* 50 mg PO SCH ×2 (10:26→20:59)
[2016-07-06] MEDS: Furosemide IV* 10 MG/ML VIAL (40 MG) IV SCH (10:26)
[2016-07-06] MEDS: Omeprazole CAP* 20 MG PO SCH (10:26)
--- NOTE | 2016-07-06 10:31 | ECHO ---
Patient: BETTE NORTON [facility] Rec#: [id number] : 1925 Date: 07/06/2016 Age: 89y Height: 182.9 cm / 72.0 in Weight: 105.2 kg / 231.9 lbs Sex: M BSA: 2.3 Room#: [facility] Admit Date#: 07/04/2016 Type: Inpatient Referring: Michelle Dietrich Reading: Jose F Whitten MD Operations Forester: Adriana Munoz RN RDCS CC: Mati oYon MD Transthoracic Echocardiogram Indication: CHF BP: 111/56 HR: 73 Rhythm: Paced Findings History: CAD, CABG, multiple coronary stents, pacemaker/ICD, CHF, COPD, CKD, HLD, HTN, chronic lymphedema, TRISHA on CPAP, hypothyroidism, obesity Technical Comments: The study is technically limited due to patient body habitus. The study is technically limited due to the patient's history of COPD. Completed at 0940. Left Ventricle: The left ventricular chamber size is mildly dilated. Moderate concentric left ventricular hypertrophy is observed. There is global hypokinesis of the left ventricle with minor regional variation. There is moderate to severely decreased left ventricular systolic function. The estimated ejection fraction is 30-35%. Ventricular septal wall motion has a post-operative appearance. There is abnormal ventricular septal wall motion consistent with right ventricular pacemaker. There is no consistent Doppler evidence of clinically significant diastolic dysfunction. Left Atrium: The left atrium is mild to moderately dilated. Right Ventricle: The right ventricle is slightly dilated. The right ventricular global systolic function is mildly reduced. A pacemaker wire is visualized in the right ventricle. Right Atrium: The right atrium is mildly dilated. A pacemaker wire is visualized in the right atrium. Aortic Valve: The aortic valve is trileaflet. The aortic valve leaflets are moderately thickened. Systolic excursion of the aortic valve cusps is reduced. There is no evidence of aortic regurgitation. There is moderate aortic stenosis. The mean gradient of the aortic valve is 11 mmHg. Highest aortic valve velocity was acquired with Pedoff in right sternal border position. Mitral Valve: Mild mitral annular calcification present. The mitral valve leaflets are mildly thickened. There is moderate mitral regurgitation. There is no evidence of mitral stenosis. Tricuspid Valve: The tricuspid valve leaflets are normal. There is trace tricuspid regurgitation. Unable to estimate the right ventricular systolic pressure. Pulmonic Valve: The pulmonic valve structure is not well visualized. There is mild pulmonic regurgitation. There is no pulmonic stenosis. Pericardium: There is no significant pericardial effusion. A pericardial fat pad is visualized. Aorta: The ascending aorta is not well visualized. The aortic arch is not well visualized. There is no dilation of the aortic root. Pulmonary Artery: The main pulmonary artery is not well visualized. Venous: The inferior vena cava appears normal in size. There is an approximate 50% respiratory change in the inferior vena cava dimension. Conclusions Moderate concentric left ventricular hypertrophy is observed. There is global hypokinesis of the left ventricle with minor regional variation. There is moderate to severely decreased left ventricular systolic function. The estimated ejection fraction is 30-35%. There is abnormal ventricular septal wall motion consistent with right ventricular pacemaker. The right ventricular global systolic function is mildly reduced. A pacemaker wire is visualized in the right ventricle. The aortic valve leaflets are moderately thickened. Systolic excursion of the aortic valve cusps is reduced. There is moderate aortic stenosis. The degree of aortic stenosis may be underestimated due to the Mod/severe LV dysfunction The mitral valve leaflets are mildly thickened. There is moderate mitral regurgitation. There is trace tricuspid regurgitation. Unable to estimate the right ventricular systolic pressure. There is no significant pericardial effusion. Measurements Name Value Normal Range RVIDd (AP) 2D 3 cm (0.9 - 2.6) RVDdMajor (2D) 4.1 cm (2.2 - 4.4) RAd ISD 4CH 5.3 cm (3.4 - 4.9) RA (A4C)W 3.8 cm (2.9 - 4.6) IVSd (2D) 1.3 cm (0.6 - 1) LVPWd (2D) 1.3 cm (0.6 - 1) LVIDd (2D) 5.5 cm (3.6 - 5.4) LVIDs (2D) 4.6 cm - LV FS (2D) 15 % (25 - 45) Aortic Annulus 2.2 cm (1.4 - 2.6) Ao root diameter (2D) 3.5 cm (2.1 - 3.5) LA dimension (AP) 2D 3.3 cm (2.3 - 3.8) LAd ISD 4CH 7.2 cm (2.9 - 5.3) LA ISD 4CH W 4.2 cm (2.5 - 4.5) Name Value Normal Range LA ESV SP 4CH (A/L) 78 ml - LA ESV SP 2CH (A/L) 79 ml - LA ESV BP (A/L) 79 ml - LA ESV BP (A/L) index 35 ml/m2 - LA ESV SP 4CH (MOD) 73 ml - LA ESV SP 2CH (MOD) 76 ml - Name Value Normal Range MV E-wave Vmax 0.91 m/sec - MV deceleration time 157 msec - MV A-wave Vmax 0.78 m/sec - MV E:A ratio 1.2 ratio - LV septal e' Vmax 0.05 m/sec - LV lateral e' Vmax 0.08 m/sec - LV E:e' septal ratio 18.2 ratio - LV E:e' lateral ratio 11.4 ratio - Name Value Normal Range AV Vmax 2.3 m/sec - AV VTI 50.4 cm - AV peak gradient 21 mmHg - AV mean gradient 11 mmHg - LVOT diameter 2 cm - LVOT Vmax 0.88 m/sec - LVOT VTI 17.8 cm - LVOT peak gradient 3.1 mmHg - LVOT mean gradient 1.7 mmHg - DOI (VTI) 0.35 ratio - DOI (Vmax) 0.38 ratio - BETY (continuity Vmax) 1.2 cm2 - BETY (continuity VTI) 1.1 cm2 - Name Value Normal Range IVC diameter 1.6 cm - Name Value Normal Range PV Vmax 0.46 m/sec -
[2016-07-06] MEDS ORDERED: Furosemide IV* 10 MG/ML VIAL (40 MG) IV ONE (20:23)
[2016-07-06] MEDS ORDERED: Potassium Chlor TAB* 20 MEQ TAB.ER PO ONE (20:23)
--- NOTE | 2016-07-06 20:29 | PN ---
Subjective Date of Service: 07/06/16 Interval History: . doing bery well wrt breathing - c/o loose stools - a chronic problem and not severe. electrolytes ok. recommended fiber/ bulking agents, but no indication for inpt workup. can lie flat now wt down to 99 kg -- down from 106 at high ... > 10 lbs total. check labs in AM -- dc to [facility] tomorrow. . Family History: Unchanged from Admission Social History: Unchanged from Admission Past Medical History: Unchanged from Admission Objective Active Medications: . Acetaminophen (Tylenol Tab*) 650 mg PO Q4H PRN PRN Reason: FEVER/PAIN Last Admin: 07/04/16 09:24 Dose: 650 mg Al Hydrox/Mg Hydrox/Simethicone (Maalox Plus*) 30 ml PO Q6H PRN PRN Reason: INDIGESTION Albuterol (Ventolin Hfa Inhaler*) 1 puff INH Q4H PRN PRN Reason: WHEEZING Aspirin (Aspirin Ec Low Dose*) 81 mg PO DAILY [facility] Last Admin: 07/06/16 10:26 Dose: 81 mg Atorvastatin Calcium (Lipitor*) 10 mg PO 2100 [facility] Last Admin: 07/05/16 20:49 Dose: 10 mg Docusate Sodium (Colace Cap*) 100 mg PO BID PRN PRN Reason: CONSTIPATION Furosemide (Lasix Iv*) 40 mg IV DAILY [facility] Last Admin: 07/06/16 10:26 Dose: 40 mg Furosemide (Lasix Iv*) 40 mg IV ONCE ONE Stop: 07/06/16 20:24 Heparin Sodium (Porcine) (Heparin Vial(*)) 5,000 units SUBCUT Q8HR [facility] Last Admin: 07/06/16 13:35 Dose: 5,000 units Vancomycin HCl 1,500 mg/ (Sodium Chloride) 250 mls @ 166.667 mls/hr IVPB Q24H [facility] Last Admin: 07/06/16 01:50 Dose: 166.667 mls/hr Isosorbide Mononitrate (Imdur Er Tab*) 30 mg PO DAILY [facility] Last Admin: 07/06/16 10:26 Dose: 30 mg Levothyroxine Sodium (Synthroid Tab*) 137 mcg PO 0600 [facility] Last Admin: 07/06/16 05:00 Dose: 137 mcg Metoprolol Tartrate (Lopressor Tab*) 75 mg PO BID [facility] Last Admin: 07/06/16 10:26 Dose: 75 mg Mometasone Furoate/Formoterol Fumar (Dulera 200/5 Mdi*) 1 puff INH BID [facility] PRN Reason: Protocol Last Admin: 07/06/16 09:36 Dose: 1 puff Omeprazole (Prilosec Cap*) 20 mg PO DAILY [facility] Last Admin: 07/06/16 10:26 Dose: 20 mg Ondansetron HCl (Zofran Inj*) 4 mg IV Q4H PRN PRN Reason: NAUSEA/VOMITING Pharmacy Consult (Vancomycin Per Pharmacy*) 1 note FOLLOW UP .VANC PER PHARMACY [facility] Pharmacy Profile Note (Vancomycin Trough Check) 1 note FOLLOW UP 0145 ONE Stop: 07/07/16 01:46 Potassium Chloride (Klor Con Er Tab*) 20 meq PO DAILY [facility] Last Admin: 07/06/16 10:26 Dose: 20 meq Potassium Chloride (Klor Con Er Tab*) 40 meq PO ONCE ONE Stop: 07/06/16 20:24 Senna (Senokot Tab*) 1 tab PO BID PRN PRN Reason: CONSTIPATION Tamsulosin HCl (Flomax Cap*) 0.4 mg PO BEDTIME [facility] Last Admin: 07/05/16 20:51 Dose: 0.4 mg . Vital Signs 07/05/16 07/06/16 07/06/16 23:55 03:39 08:00 Temperature 98.3 F 98.1 F Pulse Rate 70 70 Respiratory 16 20 16 Rate Blood Pressure 113/61 111/56 (mmHg) O2 Sat by Pulse 99 96 Oximetry 07/06/16 07/06/16 07/06/16 09:39 11:37 15:30 Temperature 98.1 F 98.0 F Pulse Rate 75 70 85 Respiratory 16 22 16 Rate Blood Pressure 129/71 117/53 (mmHg) O2 Sat by Pulse 96 99 96 Oximetry Oxygen Devices in Use Now: Nasal Cannula Appearance: NAd, elderly, VENETIE IRA Eyes: No Scleral Icterus Ears/Nose/Mouth/Throat: Clear Oropharnyx Neck: NL Appearance and Movements; NL JVP Respiratory: Symmetrical Chest Expansion and Respiratory Effort Cardiovascular: NL Sounds; No Murmurs; No JVD Abdominal: - - soft, distended. Lymphatic: No Cervical Adenopathy Extremities: - - decreased edema compared to earlier - superficial wounds on lower extremities Skin: No Rash or Ulcers Neurological: Alert and Oriented x 3 Lines/Tubes/Other Access: Clean, Dry and Intact Peripheral IV Nutrition: Taking PO's Result Diagrams: 07/04/16 05:16 07/06/16 05:26 Additional Lab and Data: . Microbiology and Other Data: Microbiology 07/04/16 02:20 Gram Stain - Final Leg Right 07/04/16 01:00 Nasal Screen MRSA (PCR)(MANUELITO) - Final Nasal Mrsa Negative Assess/Plan/Problems-Billing . Assessment: 89 yo man with CHF secondary to fluid overload. Current Medications: - Acetaminophen (Tylenol Tab) 650 mg PO Q4H PRN FEVER/PAIN - Al Hydrox/Mg Hydrox/Simethicone (Maalox Plus) 30 ml PO Q6H PRN INDIGESTION - Albuterol (Ventolin Hfa Inhaler*) 1 puff INH Q4H PRN WHEEZING - Aspirin (Aspirin Ec Low Dose) 81 mg PO DAILY - Atorvastatin Calcium (Lipitor) 10 mg PO 2100 - Docusate Sodium (Colace Cap) 100 mg PO BID PRN CONSTIPATION - Furosemide (Lasix Iv) 40 mg IV DAILY - Heparin Sodium (Porcine) (Heparin Vial(*)) 5,000 units SUBCUT Q8HR - Vancomycin HCl 1,500 mg/IVPB Q24H - Isosorbide Mononitrate (Imdur Er Tab) 30 mg PO DAILY - Levothyroxine Sodium (Synthroid Tab) 137 mcg PO 0600 - Metoprolol Tartrate (Lopressor Tab) 75 mg PO BEDTIME - Mometasone Furoate/Formoterol Fumar (Dulera 200/5 Mdi) 1 puff INH BID - Omeprazole (Prilosec Cap) 20 mg PO DAILY - Ondansetron HCl (Zofran Inj) 4 mg IV Q4H PRN NAUSEA/VOMITING - Potassium Chloride (Klor Con Er Tab) 20 meq PO DAILY - Senna (Senokot Tab) 1 tab PO BID PRN CONSTIPATION - Tamsulosin HCl (Flomax Cap) 0.4 mg PO BEDTIME [facility] . 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 - IV lasix daily or BID; follow strict I/O - daiy weights - On BB, ASA, Statin, and Nitrate (imdur) (2) Cellulitis of leg without foot Current Visit: Yes Status: Acute Priority: High Code(s): L03.119 - CELLULITIS OF UNSPECIFIED PART OF LIMB Comment: - IV Vanco off - wound cx neg for organism -- looks good - plus soft stool. - Purulent drainage was noted at admission in setting of CHRONIC LYMPHEDEMA - wound consult appreciated -- edema management is the godinez! (3) COPD (chronic obstructive pulmonary disease) Current Visit: Yes Status: Acute Code(s): J44.9 - CHRONIC OBSTRUCTIVE PULMONARY DISEASE, UNSPECIFIED SNOMED Code(s): 45405918 (4) CKD (chronic kidney disease) stage 3, GFR 30-59 ml/min Current Visit: Yes Status: Chronic Priority: Medium Code(s): N18.3 - CHRONIC KIDNEY DISEASE, STAGE 3 (MODERATE) Comment: - Acute on chronic -- follow Creatinine - hard to know his true baseline in this situation. - I note his elevated bicarb and elevated bun/Cr ratio -- close to dry weight...convert to oral lasix tomorrow and note weight as his new target weight. (5) Obesity (BMI 30.0-34.9) Current Visit: Yes Status: Chronic Priority: High Code(s): E66.9 - OBESITY , UNSPECIFIED Comment: - noted - low salt / calorie restricted diet. (6) TRISHA on CPAP Current Visit: Yes Status: Chronic Priority: High Code(s): G47.33 - OBSTRUCTIVE SLEEP APNEA (ADULT) (PEDIATRIC); Z99.89 - DEPENDENCE ON OTHER ENABLING MACHINES AND DEVICES Comment: - CPAP at night (7) BPH (benign prostatic hyperplasia) Current Visit: Yes Status: Chronic Priority: Medium Code(s): N40.0 - BENIGN PROSTATIC HYPERPLASIA WITHOUT LOWER URINRY TRACT SYMP (8) Hypothyroidism Current Visit: Yes Status: Chronic Priority: High Code(s): E03.9 - HYPOTHYROIDISM, UNSPECIFIED Comment: - continue replacement therapy (9) GERD (gastroesophageal reflux disease) Current Visit: Yes Status: Chronic Priority: Medium Code(s): K21.9 - GASTRO-ESOPHAGEAL REFLUX DISEASE WITHOUT ESOPHAGITIS Comment: - On PPI (10) DNR (do not resuscitate) Current Visit: Yes Status: Chronic Priority: High
[2016-07-06] MEDS: Tamsulosin CAP* 0.4 MG PO SCH (20:58)
[2016-07-06] MEDS: Atorvastatin* 10 MG TAB PO SCH (21:00)
[2016-07-07] MEDS ORDERED: Vancomycin Trough Check NOTE FOLLOW UP ONE (01:45)
[2016-07-07] MEDS: Levothyroxine TAB* 137 MCG TAB PO SCH (05:25)
[2016-07-07] MEDS: Heparin VIAL(*) 5000 UNITS/ML VIAL (FIVE THOUSAND) SUBCUT SCH (05:25)
[2016-07-07 06:42] LABS: Hematocrit 40 % (42-52); Hemoglobin 13.3 g/dl (14.0-18.0); Mean Corpuscular HGB Conc 33 g/dl (31-36); Mean Corpuscular Hemoglobin 31 pg (27-31); Mean Corpuscular Volume 94 fL (80-94); Mean Platelet Volume 8 um3 (7.4-10.4); Red Blood Count 4.28 10^6/ul (4.0-5.4); Red Cell Distribution Width 14 % (10.5-15); White Blood Count 7.8 10^3/ul (3.5-10.8)
[2016-07-07 07:00] LABS: BUN/Creatinine Ratio 13.6 (8-20); Calcium 9.3 mg/dL (8.6-10.3); EGFR African American 51.9 (>60); EGFR Non-African American 40.3 (>60); Magnesium 2.3 mg/dL (1.9-2.7); Phosphorus 2.9 mg/dL (2.5-5.0); Potassium 4.1 mmol/L (3.5-5.0)
[2016-07-07 08:23] VITALS: BP 124/54
[2016-07-07] MEDS: Mometasone/Formoter 200/5 MDI INH SCH (09:35)
--- NOTE | 2016-07-07 17:50 | TRS ---
DISCHARGE/TRANSFER SUMMARY: DATE OF ADMISSION: 07/03/16 DATE OF DISCHARGE: (Future) 07/07/16 PRIMARY CARE PROVIDER: Dr. Mati Yoon. STATUS DURING HOSPITALIZATION: Inpatient. PRINCIPAL DISCHARGE DIAGNOSES: 1. Likely acute on chronic systolic heart failure with decrement of ejection fraction as per echocardiogram during this admission compared to what was reported by the patient/family, but not verified by primary data. 2. Loss of 7 kg of water weight with aggressive diuresis with resolution of orthopnea as reported by the patient and decreased objective edema. SECONDARY DIAGNOSES: 1. Known coronary artery disease, status post coronary artery bypass graft in 2002 with multiple stent placement thereafter, currently being transitioned from meat packer from [place] [facility] [facility] to Dr. Mars in [place]. 2. Stated history of congestive heart failure with preserved ejection fraction , but new echo data showing ejection fraction in the 30s. 3. Chronic obstructive pulmonary disease. 4. Chronic kidney disease - creatinine in the mid 1s at baseline. 5. Osteoarthritis. 6. Gastroesophageal reflux disease. 7. Hyperlipidemia. 8. Chronic lymphedema/lower extremity edema with superficial wounds. 9. Benign prostatic hyperplasia. 10. Obstructive sleep apnea, on nightly CPAP. 11. 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 12. Hypertension. 13. Hypothyroidism, on Synthroid replacement. 14. Obesity. 15. Neuropathy. PAST SURGICAL HISTORY: Including pacemaker/ICD placement during coronary artery bypass graft in 2002. DISCHARGE MEDICATION REGIMEN: 1. Imdur 30 mg by mouth extended release formulation daily. 2. Metoprolol 75 mg by mouth twice daily. 3. Potassium chloride 20 mEq by mouth daily. 4. Albuterol HFA inhaler 1 puff every 4 hours as needed for shortness of breath. 5. Aspirin 81 mg by mouth daily. 6. Budesonide/formoterol (Symbicort) 160/4.5 strength 1 puff twice daily. 7. Levothyroxine 137 mcg daily. 8. Multivitamin with minerals 1 tablet by mouth once daily. 9. [place]-3 fatty acids with Lutein-[employer] [employer] 1 capsule by mouth daily. 10. Omeprazole 20 mg by mouth daily. 11. Simvastatin 20 mg by mouth at bedtime. 12. Tamsulosin 0.4 mg by mouth at bedtime. 13. Lasix increased to 40 mg by mouth daily. 14. Acetaminophen 650 mg by mouth every 4 hours p.r.n. pain/fever. HISTORY OF PRESENT ILLNESS AND HOSPITAL COURSE: Please see the H and P by Dr. Michelle Dietrich on 07/03/16 and my progress notes thereafter. In brief, Mr. Jacobs is a pleasant 89-year-old gentleman with the medical history detailed above, who came to the emergency room from [place] with worsening shortness of breath and orthopnea. He noted worsening abdominal distention and lower extremity swelling and his abdominal distention was his main complaint. He has worsening orthopnea and inability to sleep. He wakes short of breath in the evening. He cannot bend over and he noted a weight gain of over 15 pounds over the past month. There is decreased appetite. He has been maintaining a - free diet because he was concerned about loose stools and abdominal bloating. He has been sent to Gastroenterology for an EGD and is transitioning to a new meat packer as he has moved from [place] back to [place] this past April. He was started with an antibiotic recently for purulent lower extremity drainage. He was not sure what that antibiotic was, but he was started on vancomycin in the hospital for broad gram-positive coverage including MRSA. The wound cultures that were drawn at admission did not show any organisms and he did not have a white count or fever or any evidence of active inflammation as his edema subsided during the hospitalization. His redness, erythema, and weeping also decreased leading me to believe that it was an edema and lymphedema problem. The patient has diuresed aggressively. His initial weight was 106 kg and the night prior to planned discharge, he is 99 kg indicating approximately 15-pound weight loss and this corresponds with the weight gain the patient reported over the past month. We educated him on a low-salt diet and daily weights. He is feeling subjectively better. He still complains of loose stools and is concerned about his potential intolerance, but I explained that can continued to be worked up in the outpatient and he agrees with going back to [place] the morning of 07/07/16 if he continues asymptomatic. The patient can come back to emergency room for further treatment if he has any new or worrisome symptoms and he said he would comply with that instruction. I do think that his most recent echocardiogram should be explored if there was a significant decrease in his ejection fraction that should be notified to his cardiology team in the outpatient setting. For now, his hemodynamics are somewhat optimized on his current beta-kavin dose. He is on statin therapy, aspirin, and standing Lasix, and I hesitate to start an ESDRAS inhibitor given his renal function and that were running him a bit dry given his GMS-[id number]-[id number] ratio at discharge and his elevated bicarb compared to admission. For more details regarding hospitalization, please see the full medical record as this is a highly summarized account of complex hospitalization. TIME SPENT: Total time taken to discharge Mr. Jacobs was 50 minutes, greater than half of that time was spent over going the discharge instructions face-to- face with the patient at bedside. CC: Dr. Mati Yoon * [id number]/[facility] #: [id number] AGUSTIN
== END 2016-07-07 10:25 | DRG 291 ==
LOC: ED 20:49 → MEDTELE 23:24 → OBSVTOIN 07-04 15:30
PROVIDERS: ADMIT Pediatrics; ATTEND Internal Medicine
DX: I13.0 Hypertensive heart and chronic kidney disease with heart failure and stage 1 through stage 4 chronic kidney disease, or unspecified chronic kidney disease (principal); I50.23 Acute on chronic systolic (congestive) heart failure; R18.8 Other ascites; G62.9 Polyneuropathy, unspecified; L03.115 Cellulitis of right lower limb; J44.9 Chronic obstructive pulmonary disease, unspecified; N18.3 Chronic kidney disease, stage 3 (moderate); L03.116 Cellulitis of left lower limb; I25.810 Atherosclerosis of coronary artery bypass graft(s) without angina pectoris; R06.01 Orthopnea; M19.90 Unspecified osteoarthritis, unspecified site; K21.9 Gastro-esophageal reflux disease without esophagitis; L98.9 Disorder of the skin and subcutaneous tissue, unspecified; E78.5 Hyperlipidemia, unspecified; I89.0 Lymphedema, not elsewhere classified; N40.0 Benign prostatic hyperplasia without lower urinary tract symptoms; G47.33 Obstructive sleep apnea (adult) (pediatric); E03.9 Hypothyroidism, unspecified; E66.9 Obesity, unspecified; Z95.1 Presence of aortocoronary bypass graft; Z95.5 Presence of coronary angioplasty implant and graft; Z95.810 Presence of automatic (implantable) cardiac defibrillator; Z79.82 Long term (current) use of aspirin; Z79.899 Other long term (current) drug therapy; Z88.1 Allergy status to other antibiotic agents; Z88.8 Allergy status to other drugs, medicaments and biological substances; Z81.1 Family history of alcohol abuse and dependence; Z82.49 Family history of ischemic heart disease and other diseases of the circulatory system; Z99.3 Dependence on wheelchair; Z66 Do not resuscitate; Z87.891 Personal history of nicotine dependence; Z68.34 Body mass index [BMI] 34.0-34.9, adult
CPT/HCPCS: 36415; 71020; 74176; 80048; 80053; 81003; 83605; 83735; 83880; 84100; 84484; 85025; 85610; 86140; 87070; 87205; 87493; 87502; 87641; 93005; 93306; 94640; 94760; A9270-GY; G8978-GP-CL; G8979-GP-CK; J1644; J1940; J3370

== ENCOUNTER 2016-12-06 18:08 | Inpatient (IN) | payer MEDICARE, OTHER ==
[2016-12-06] MEDS ORDERED: Aspirin Low Dose CHEW TAB* 81 MG PO ONE (18:14)
[2016-12-06 18:46] LABS: Hematocrit 37 % (42-52); Hemoglobin 12.2 g/dl (14.0-18.0); Mean Corpuscular HGB Conc 33 g/dl (31-36); Mean Corpuscular Hemoglobin 31 pg (27-31); Mean Corpuscular Volume 94 fL (80-94); Mean Platelet Volume 8 um3 (7.4-10.4); Red Blood Count 3.95 10^6/ul (4.0-5.4); Red Cell Distribution Width 15 % (10.5-15); White Blood Count 6.8 10^3/ul (3.5-10.8)
[2016-12-06 18:58] LABS: Albumin 3.7 g/dL (3.2-5.2); BUN/Creatinine Ratio 13.6 (8-20); EGFR African American 41.1 (>60); Globulin 2.8 g/dL (2-4); Potassium 4.1 mmol/L (3.5-5.0); Total Bilirubin 0.6 mg/dL (0.2-1.0); Total Protein 6.5 g/dL (6.4-8.9)
[2016-12-06 19:00] LABS: Troponin I 0.02 ng/mL (<0.04)
[2016-12-06] MEDS ORDERED: Furosemide IV* 10 MG/ML VIAL (40 MG) IV SLOW PU ONE ×2 (20:37→20:38)
--- NOTE | 2016-12-06 20:59 | RAD ---
Indication: RIGHT upper quadrant abdominal pain, bloating, difficulty breathing. Chronic obstructive pulmonary disease and cardiac disease. Comparison: July 04, 2016 CT and July 03, 2016 chest radiograph. Technique: Upright AP 2030 hours Report: Mild perihilar opacities. Probable small effusions. Negative for pneumothorax. Cardiomegaly, RIGHT atrial and RIGHT ventricular level pacemaker leads, median sternotomy wires, mediastinal vascular clips. Mildly prominent and ill-defined central pulmonary vasculature. Negative for free air beneath the diaphragm. IMPRESSION: The constellation of findings is most consistent with mild pulmonary vascular congestion with associated small effusions less prominent than on the July 03, 2016 exam.
--- NOTE | 2016-12-06 21:12 | RAD ---
Indication: Subacute RIGHT hand weakness and RIGHT facial weakness. Comparison: No relevant prior exams available on the [facility] PACS for comparison. Technique: Noncontrast CT vertex of skull through foramen magnum. Report: Artifact from the LEFT scalp component of the cochlear implant device. Mild prominence of the cerebral sulci and cerebellar fissures reflecting atrophy. Associated enlarged ventricles and normal variant persistent cavum septum pellucidum. Unremarkable basal cisterns. Decreased density in the periventricular and subcortical white matter while non-specific is most likely due to chronic microangiopathy. Negative for rivera matter white matter obscuration, intra or extra-axial hemorrhage, or mass effect. Large vessel atherosclerotic calcification at the skull base. Negative for intra or extra-axial hemorrhage. Unremarkable orbital contents. No suspicious calvarial or skull base lesion evident. Opacification of the RIGHT sphenoid sinus with indolent thickening of the sinus bragg consistent with chronic sinusitis. No visualized paranasal sinus fluid levels. Clear RIGHT mastoid air spaces. Post partial LEFT mastoidectomy related to the cochlear implant. Negative for LEFT mastoid effusions. IMPRESSION: Involutional change and stigmata of chronic small vessel ischemic disease. No acute intracranial process evident.
[2016-12-06] MEDS ORDERED: Albuterol 2.5 MG/3 ML NEB.SOL* (0.083%) INH PRN (21:58)
[2016-12-06] MEDS ORDERED: Acetaminophen TAB* 325 MG PO PRN (21:58)
[2016-12-06] MEDS ORDERED: Ondansetron INJ* 2 MG/ML VIAL IV PRN (21:58)
[2016-12-06] MEDS ORDERED: Heparin VIAL(*) 5000 UNITS/ML VIAL (FIVE THOUSAND) SUBCUT SCH (22:00)
--- NOTE | 2016-12-07 02:35 | HP ---
CC: Dr. Yoon * HISTORY AND PHYSICAL: DATE OF ADMISSION: 12/06/16 PRIMARY CARE PROVIDER: Dr. Yoon. ATTENDING PHYSICIAN WHILE IN THE HOSPITAL: Dr. Dorian Carranza * (report dictated by Augustus Preston NP). CHIEF COMPLAINT: 1. Right upper quadrant abdominal pain. 2. Shortness of breath. HISTORY OF PRESENT ILLNESS: Mr. Jacobs is an 89-year-old male patient with multiple medical problems with history of CAD; CHF, last known EF 30% to 35%; COPD; CKD; arthritis; GERD; hypertension; chronic lymphedema; BPH; TRISHA; he is hard of hearing, with the cochlear implant; hypertension; hypothyroidism; obesity; melanoma; CVA; neuropathy. He comes into the ER today stating that he is going to sit down and have his dinner tonight. When he was sitting down, he noticed that he started developing right upper quadrant discomfort and pain. He has had his gallbladder out. He said it happened right before he was eating and he says he started feeling short of breath. He noticed the last few days though he noted that like he has noticed previously in June that lying down was becoming more of a chore, he was having more shortness of breath, more dyspnea on exertion. He has noticed that he has had some increasing swelling in the lower extremities. He says he has been taking his medications as prescribed and there have been no recent changes. He was concerned because of the breathing and amount of pain. He denied having any chest pain. He does state that his weight has been right around 220. He thinks he has gained about 6 pounds because he is unsure how long of a time period that has happened. He does state though he cannot lie flat because it does make him feel short of breath. Because of this, he came into the ER today. He was evaluated. There was concern for possible CHF. We were asked to evaluate for admission. PAST MEDICAL HISTORY: Significant for: 1. CAD. 2. CHF, EF known to be 30% to 35%. 3. COPD. 4. CKD. 5. Arthritis. 6. GERD. 7. Hyperlipidemia. 8. Lymphedema. 9. BPH. 10. TRISHA. 11. Hard of hearing, with cochlear implant. 12. Hypertension. 13. Hypothyroidism. 14. Obesity. 15. Melanoma. 16. CVA. 17. Neuropathy. PAST SURGICAL HISTORY: He has had: 1. CABG. 2. Cardiac catheterization with 1 stent. 3. Pacemaker/ICD placement. 4. Laparoscopic cholecystectomy. 5. Cochlear implant. MEDICATIONS: Home meds according to his list include: 1. Demadex 20 mg daily. 2. Flomax 0.4 mg p.o. daily at bedtime. 3. Zocor 20 mg p.o. at bedtime. 4. Metamucil 1 capsule p.o. daily. 5. Potassium chloride 20 mEq p.o. daily. 6. Prilosec 20 mg daily. 7. [place]-3 fatty acids 1 capsule daily. 8. Multivitamin 1 capsule daily. 9. Lopressor 75 mg p.o. b.i.d. 10. Synthroid 68.5 mcg on Sundays and 137 mcg Wednesday, Wednesday, Wednesday, , Wednesday, Wednesday. 11. Imdur 60 mg daily. 12. Inspra 50 mg daily. 13. Symbicort 1 puff inhaled b.i.d. 14. Eliquis 2.5 mg p.o. b.i.d. 15. Ventolin 1 puff every 4 hours as needed. 16. Tylenol 650 mg every 4 hours as needed. ALLERGIES TO MEDICATIONS: Include BIAXIN and SPIRONOLACTONE. FAMILY HISTORY: Mother had a history of PA. Father had a history of cirrhosis. He at the age of 81. SOCIAL HISTORY: His surrogate decision maker is his daughter, Deborah. He does reside at [place]. He does not smoke. He does drink alcohol occasionally. REVIEW OF SYSTEMS: There is no documented fever. He does admit to having a weight change of 6 pounds over an unknown time. No rhinorrhea. No sore throat , no thyroid enlargement. Denies having any chest pain. There is orthopnea. There is no nocturnal dyspnea. There was abdominal pain from my HPI, but no associated nausea, vomiting. No fevers, no chills. No loss of consciousness. No dysuria, no frequency. No seizures, no loss of consciousness. No pruritus and no skin ulcerations. Review of 14 systems completed, all others negative. PHYSICAL EXAMINATION GENERAL: At this time, Mr. Jacobs is an 89-year-old male patient. He is chronically ill appearing. He is sitting in the ER stretcher. He does not appear to be in any acute distress. VITAL SIGNS: Reveal blood pressure 111/90, pulse is 70, respirations 18, O2 sat 97%, temperature 97.6. HEENT: Head is atraumatic, normocephalic. Eyes: EOMs are intact. Sclerae were anicteric, not pale. Throat: Oral mucosa appears to be moist. No oropharyngeal erythema. NECK: Supple. LUNGS: He did have crackles noted in the right base and they were diminished. He had equal diaphragmatic expansion. HEART: Sounds S1 and S2. Regular rate and rhythm. No murmurs, rubs, or gallops. ABDOMEN: Soft, it was flat, there did appear to be moderate amount of ascites, it was mildly distended. EXTREMITIES: He had +4 pitting edema bilaterally and he had chronic brawny discoloration and chronic venous stasis as well. NEUROLOGIC: The patient is awake, alert, he is oriented x3. He is moving all 4 extremities with 5/5 strength. No gross focal deficits. SKIN: Intact. DIAGNOSTIC STUDIES/LAB DATA: Revealed WBC 6.8, RBC of 3.95, hemoglobin 12.2, hematocrit 37, platelet count of 196. His D-dimer was 226. Sodium 136; potassium 4.1; chloride 102; bicarb 28; BUN 27; creatinine 1.98, baseline 1.6; glucose 103; lactate 1.2; calcium 9. Total bili 0.6, AST 6, ALT 4, alk phos 43. Troponin 0.02. BNP at 350. Albumin of 3.7. He did have a chest x-ray obtained today, impression showed constellation of findings most consistent with mild pulmonary vascular congestion with associated small effusion most prominent than on June exam. He had a brain CT obtained today, which revealed involutional change. There is stigmata of chronic small vessel ischemic change. No acute intracranial process evident. EKG showed ventricular paced rhythm, rate of 75. No acute changes. He had an echo again noted on 07/03/16, which showed EF of 30% to 35%. Old medical records reviewed. ASSESSMENT AND PLAN: Mr. Jacobs is an 89-year-old male patient coming into the ER today with complaints of worsening shortness of breath, having increasing weight gain of about 6 pounds, and in orthopnea. On evaluation, there was concern for congestive heart failure. He will be admitted under inpatient status for: 1. Congestive heart failure exacerbation. Again, etiology is unclear why this happened just yet, my plan is to go ahead and going to give him IV diuretics following the creatinine closely as it is up from his baseline. We will give him the Lasix, follow this BMP closely, daily weight. I am not going to repeat the echo. were both negative and we will continue to follow him closely. 2. Coronary artery disease. He is on nitrates, beta kavin, aspirin, statin, continue. 3. Chronic obstructive pulmonary disease. He can continue Symbicort and albuterol. I do not think this is chronic obstructive pulmonary disease exacerbation, sounds like more cardiac. 4. Chronic kidney disease. Again, his creatinine is 1.98 today is up from his baseline of 1.6. We will need to follow this closely in the setting of giving him Lasix IV. 5. Arthritis. Continue p.r.n. Tylenol. 6. Gastroesophageal reflux disease. Continue PPI therapy. 7. Hyperlipidemia. Continue statin therapy. 8. History of lymphedema. We will encourage lower extremity elevation and leg wraps. 9. Obstructive sleep apnea. I have ordered a CPAP. 10. Benign prostatic hyperplasia. Continue Flomax. 11. History of hypertension. Continue meds as prescribed. 12. Hypothyroidism. Continue Synthroid. 13. History of cerebrovascular accident. Continue with secondary prevention. 14. History of melanoma. Follow up with Dr. Yoon when stable. 15. Neuropathy. Continue his meds as prescribed. 16. DVT prophylaxis. He is on Eliquis. 17. Code status. He is a DNR/DNI. 18. Fluids, electrolytes, and nutrition. He can have a heart healthy diet. TIME SPENT: On the admission was approximately 60 minutes, greater than half the time was spent [id number] with the patient obtaining my history and physical, the other half of the time was spent going over the plan of care with the patient and implementing the plan of care. I did discuss the plan of care with my attending, Dr. Carranza; he is in agreement. AUGUSTUS PRESTON NP [id number]/[facility] #: [id number] AGUSTIN
[2016-12-07 05:41] LABS: Hematocrit 36 % (42-52); Hemoglobin 12.1 g/dl (14.0-18.0); Mean Corpuscular HGB Conc 33 g/dl (31-36); Mean Corpuscular Hemoglobin 31 pg (27-31); Mean Corpuscular Volume 93 fL (80-94); Mean Platelet Volume 8 um3 (7.4-10.4); Red Blood Count 3.88 10^6/ul (4.0-5.4); Red Cell Distribution Width 14 % (10.5-15); White Blood Count 7.7 10^3/ul (3.5-10.8)
[2016-12-07 05:55] LABS: BUN/Creatinine Ratio 14.1 (8-20); Calcium 9.1 mg/dL (8.6-10.3); EGFR African American 44.5 (>60); EGFR Non-African American 34.6 (>60); Potassium 3.4 mmol/L (3.5-5.0)
[2016-12-07] MEDS: Levothyroxine TAB* 137 MCG TAB PO SCH (06:20)
--- NOTE | 2016-12-07 07:53 | RAD ---
INDICATION: Right upper quadrant pain. COMPARISON: Comparison is made with a prior CT of the abdomen and pelvis from July 04, 2016. TECHNIQUE: Multiple real-time images of the right upper quadrant were obtained. FINDINGS: The patient is status post cholecystectomy. No intra or extrahepatic ductal distention is present. The common bile duct is not identified. The exam is limited due to overlying bowel gas. The liver is normal in size without significant focal abnormality. The pancreas is obscured by overlying bowel gas. The right kidney measured 9.9 x 5.1 x 5.4 cm. There is increased echogenicity suggestive of medical renal disease. No hydronephrosis is seen. IMPRESSION: 1. LIMITED STUDY DUE TO OVERLYING BOWEL GAS. THE COMMON BILE DUCT AND PANCREAS ARE NOT SEEN. 2. STATUS POST CHOLECYSTECTOMY. 3. FINDINGS SUGGESTIVE OF MEDICAL RENAL DISEASE.
[2016-12-07] MEDS: Mometasone/Formoter 200/5 MDI INH SCH ×2 (08:13→20:53)
[2016-12-07] MEDS ORDERED: Furosemide IV* 10 MG/ML 10 ML VIAL (100 MG) IV ONE (09:00)
[2016-12-07] MEDS ORDERED: Isosorbide Mononitrate ER TAB* 30 MG PO SCH (09:00)
[2016-12-07] MEDS: Isosorbide Mononitrate ER TAB* 60 MG PO SCH (09:15)
[2016-12-07] MEDS: Metoprolol Tartrate TAB* 50 mg PO SCH ×2 (09:15→22:03)
[2016-12-07] MEDS: Potassium Chlor TAB* 20 MEQ TAB.ER PO SCH (09:15)
[2016-12-07] MEDS: Omeprazole CAP* 20 MG PO SCH (09:15)
[2016-12-07] MEDS: Apixaban* 2.5 MG TAB PO SCH ×2 (10:42→22:03)
[2016-12-07] MEDS: CMCS Epleronone (NF) 25 MG TAB PO SCH (10:42)
--- NOTE | 2016-12-07 11:01 | PN ---
Subjective Date of Service: 12/07/16 Interval History: Patient seen and examined at bedside. He reports a feeling of abdominal fullness and pain in the RUQ yesterday that is now resolved. He feels better today. He denies CP, SOB. He reports that he gained some fluid weight last week when his weight was checked at [place]. He states he eats a low salt diet, but then says, "I like to add some salt to my food from time to time." He is unable to quantify how much salt, but we did discuss that excess salt can lead to fluid retention and the symptoms he has been experiencing. Family History: Unchanged from Admission Social History: Unchanged from Admission Past Medical History: Unchanged from Admission Objective Active Medications: Acetaminophen (Tylenol Tab*) 650 mg PO Q4H PRN PRN Reason: FEVER/PAIN Albuterol (Ventolin 2.5 Mg/3 Ml Neb.Blanca*) 2.5 mg INH Q2H PRN PRN Reason: SOB/WHEEZING Apixaban (Eliquis) 2.5 mg PO BID [facility] Last Admin: 12/07/16 10:42 Dose: 2.5 mg Atorvastatin Calcium (Lipitor*) 10 mg PO BEDTIME [facility] Eplerenone (Inspra (Nf)) 50 mg PO DAILY [facility] Last Admin: 12/07/16 10:42 Dose: 50 mg Isosorbide Mononitrate (Imdur Er Tab*) 60 mg PO DAILY [facility] Last Admin: 12/07/16 09:15 Dose: 60 mg Levothyroxine Sodium (Synthroid Tab*) 137 mcg PO MoTuWeThFrSa@0600 [facility] Last Admin: 12/07/16 06:20 Dose: 137 mcg Levothyroxine Sodium (Synthroid Tab*) 68.5 mcg PO Seymour@0600 [facility] Metoprolol Tartrate (Lopressor Tab*) 75 mg PO BID [facility] Last Admin: 12/07/16 09:15 Dose: 75 mg Mometasone Furoate/Formoterol Fumar (Dulera 200/5 Mdi*) 1 puff INH BID [facility] PRN Reason: Protocol Last Admin: 12/07/16 08:13 Dose: 1 puff Omeprazole (Prilosec Cap*) 20 mg PO DAILY [facility] Last Admin: 12/07/16 09:15 Dose: 20 mg Ondansetron HCl (Zofran Inj*) 4 mg IV Q6H PRN PRN Reason: NAUSEA Potassium Chloride (Klor Con Er Tab*) 20 meq PO DAILY [facility] Last Admin: 12/07/16 09:15 Dose: 20 meq Tamsulosin HCl (Flomax Cap*) 0.4 mg PO BEDTIME [facility] Vital Signs 12/06/16 12/06/16 12/06/16 22:00 23:08 23:33 Temperature 98.5 F 97.8 F Pulse Rate 56 82 Respiratory 16 22 Rate Blood Pressure 139/64 117/65 (mmHg) O2 Sat by Pulse 98 97 Oximetry 12/07/16 03:38 Temperature 98.3 F Pulse Rate 79 Respiratory 20 Rate Blood Pressure 105/60 (mmHg) O2 Sat by Pulse 96 Oximetry Oxygen Devices in Use Now: None Appearance: Elderly male, lying in bed, NAD Eyes: No Scleral Icterus Ears/Nose/Mouth/Throat: Mucous Membranes Moist Neck: NL Appearance and Movements; NL JVP Respiratory: Symmetrical Chest Expansion and Respiratory Effort, Clear to Auscultation - diminished Cardiovascular: NL Sounds; No Murmurs; No JVD, - - BLE 2-3+ pitting edema Abdominal: - - abdomen appears mildly distended, soft, non-tender Extremities: No Clubbing, Cyanosis, - Skin: No Nodules or Sclerosis, - - chronic venous stasis changes to BLE Neurological: Alert and Oriented x 3, NL Muscle Strength and Tone, - - decreased sensation to BUE and BLE Lines/Tubes/Other Access: Clean, Dry and Intact Peripheral IV Nutrition: Taking PO's Result Diagrams: 12/07/16 05:00 12/07/16 05:00 Additional Lab and Data: Lab Results 12/06/16 12/06/16 12/06/16 Range/Units 18:27 18:27 18:27 WBC 6.8 (3.5-10.8) 10^3/ul RBC 3.95 L (4.0-5.4) 10^6/ul Hgb 12.2 L (14.0-18.0) g/dl Hct 37 L (42-52) % MCV 94 (80-94) fL MCH 31 (27-31) pg MCHC 33 (31-36) g/dl RDW 15 (10.5-15) % Plt Count 196 (150-450) 10^3/ul MPV 8 (7.4-10.4) um3 Neut % (Auto) 66.3 (38-83) % Lymph % (Auto) 16.5 L (25-47) % [place] % (Auto) 10.6 H (1-9) % Eos % (Auto) 5.7 (0-6) % Baso % (Auto) 0.9 (0-2) % Absolute Neuts (auto) 4.5 (1.5-7.7) 10^3/ul Absolute Lymphs (auto) 1.1 (1.0-4.8) 10^3/ul Absolute Monos (auto) 0.7 (0-0.8) 10^3/ul Absolute Eos (auto) 0.4 (0-0.6) 10^3/ul Absolute Basos (auto) 0.1 (0-0.2) 10^3/ul Absolute Nucleated RBC 0 10^3/ul Nucleated RBC % 0.1 Sodium 136 (133-145) mmol/L Potassium 4.1 (3.5-5.0) mmol/L Chloride 102 (101-111) mmol/L Carbon Dioxide 28 (22-32) mmol/L Anion Gap 6 (2-11) mmol/L BUN 27 H (6-24) mg/dL Creatinine 1.98 H (0.67-1.17) mg/dL Est GFR ( Amer) 41.1 (>60) Est GFR (Non-Af Amer) 32.0 (>60) BUN/Creatinine Ratio 13.6 (8-20) Glucose 103 H (70-100) mg/dL Lactic Acid 1.2 (0.5-2.0) mmol/L Calcium 9.0 (8.6-10.3) mg/dL Total Bilirubin 0.60 (0.2-1.0) mg/dL AST 6 L (13-39) U/L ALT 4 L (7-52) U/L Alkaline Phosphatase 43 (34-104) U/L Troponin I 0.02 (<0.04) ng/mL Total Protein 6.5 (6.4-8.9) g/dL Albumin 3.7 (3.2-5.2) g/dL Globulin 2.8 (2-4) g/dL Albumin/Globulin Ratio 1.3 (1-3) Assess/Plan/Problems-Billing Assessment: Mr. Jacobs is an 89 yo male who has a PMH significant for CAD, CHF with EF 30-35 %, COPD, CKD, HTN, hypothyroidism, OA, GERD, HLD, lymphedema, BPH, TRISHA, and PAUMA with cochlear implant who presented to the ED on 12/06 with concern for shortness of breath, orthopnea, RUQ abd pain and fullness. - Patient Problems (1) Congestive heart failure with left ventricular diastolic dysfunction Code(s): I50.30 - UNSPECIFIED DIASTOLIC (CONGESTIVE) HEART FAILURE Comment: With acute exacerbation Orthopnea noted with peripheral edema at admission Previous echo shows EF 30-35% with systolic dysfunction Continue IV furosemide Strict I/O, daily weights Cont metoprolol, isosorbide mononitrate, simvastatin. (2) CAD (coronary artery disease) Code(s): I25.10 - ATHSCL HEART DISEASE OF [place] CORONARY ARTERY W/O ANG PCTRS Comment: Stable Continue metoprolol, statin, isosorbide mononitrate (3) COPD (chronic obstructive pulmonary disease) Code(s): J44.9 - CHRONIC OBSTRUCTIVE PULMONARY DISEASE, UNSPECIFIED Comment: Stable, not in exacerbation Continue albuterol, Symbicort (4) CKD (chronic kidney disease) stage 3, GFR 30-59 ml/min Code(s): N18.3 - CHRONIC KIDNEY DISEASE, STAGE 3 (MODERATE) Comment: Acute on chronic kidney disease Baseline appears to be between 1.5 and 1.6 Continue to follow, especially with IV furosemide Avoid nephrotoxic medications (5) GERD (gastroesophageal reflux disease) Code(s): K21.9 - GASTRO-ESOPHAGEAL REFLUX DISEASE WITHOUT ESOPHAGITIS Comment : Continue omeprazole. (6) BPH (benign prostatic hyperplasia) Code(s): N40.0 - BENIGN PROSTATIC HYPERPLASIA WITHOUT LOWER URINRY TRACT SYMP Comment: Continue tamsulosin. (7) Hypothyroidism Code(s): E03.9 - HYPOTHYROIDISM, UNSPECIFIED Comment: Continue levothyroxine. 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 (9) DVT prophylaxis Comment: Apixaban (10) DNR (do not resuscitate) Status and Disposition: Inpatient admit. Anticipate dc in 2-3 days.
[2016-12-07] MEDS: Tamsulosin CAP* 0.4 MG PO SCH (22:03)
[2016-12-07] MEDS: Atorvastatin* 10 MG TAB PO SCH (22:03)
[2016-12-08] MEDS: Levothyroxine TAB* 137 MCG TAB PO SCH (05:44)
[2016-12-08] MEDS: Mometasone/Formoter 200/5 MDI INH SCH ×2 (08:29→20:15)
[2016-12-08] MEDS: Apixaban* 2.5 MG TAB PO SCH ×2 (09:18→21:05)
[2016-12-08] MEDS: Metoprolol Tartrate TAB* 50 mg PO SCH ×2 (09:18→21:06)
[2016-12-08] MEDS: Isosorbide Mononitrate ER TAB* 60 MG PO SCH (09:18)
[2016-12-08] MEDS: CMCS Epleronone (NF) 25 MG TAB PO SCH (09:18)
[2016-12-08] MEDS: Potassium Chlor TAB* 20 MEQ TAB.ER PO SCH (09:19)
[2016-12-08] MEDS: Omeprazole CAP* 20 MG PO SCH (09:19)
--- NOTE | 2016-12-08 10:26 | PN ---
Subjective Date of Service: 12/08/16 Interval History: Patient seen and examined at bedside. Reports feeling better this morning and only notes discomfort during his echo, when the probe pressed his chest. Denies SOB, abd pain, n/v, orthopnea. No other acute concerns. Family History: Unchanged from Admission Social History: Unchanged from Admission Past Medical History: Unchanged from Admission Objective Active Medications: Acetaminophen (Tylenol Tab*) 650 mg PO Q4H PRN PRN Reason: FEVER/PAIN Albuterol (Ventolin 2.5 Mg/3 Ml Neb.Blanca*) 2.5 mg INH Q2H PRN PRN Reason: SOB/WHEEZING Apixaban (Eliquis) 2.5 mg PO BID [facility] Last Admin: 12/08/16 09:18 Dose: 2.5 mg Atorvastatin Calcium (Lipitor*) 10 mg PO BEDTIME [facility] Last Admin: 12/07/16 22:03 Dose: 10 mg Eplerenone (Inspra (Nf)) 50 mg PO DAILY [facility] Last Admin: 12/08/16 09:18 Dose: 50 mg Isosorbide Mononitrate (Imdur Er Tab*) 60 mg PO DAILY [facility] Last Admin: 12/08/16 09:18 Dose: 60 mg Levothyroxine Sodium (Synthroid Tab*) 137 mcg PO MoTuWeThFrSa@0600 [facility] Last Admin: 12/08/16 05:44 Dose: 137 mcg Levothyroxine Sodium (Synthroid Tab*) 68.5 mcg PO Seymour@0600 [facility] Metoprolol Tartrate (Lopressor Tab*) 75 mg PO BID [facility] Last Admin: 12/08/16 09:18 Dose: 75 mg Mometasone Furoate/Formoterol Fumar (Dulera 200/5 Mdi*) 1 puff INH BID [facility] PRN Reason: Protocol Last Admin: 12/08/16 08:29 Dose: 1 puff Omeprazole (Prilosec Cap*) 20 mg PO DAILY [facility] Last Admin: 12/08/16 09:19 Dose: 20 mg Ondansetron HCl (Zofran Inj*) 4 mg IV Q6H PRN PRN Reason: NAUSEA Potassium Chloride (Klor Con Er Tab*) 20 meq PO DAILY [facility] Last Admin: 12/08/16 09:19 Dose: 20 meq Tamsulosin HCl (Flomax Cap*) 0.4 mg PO BEDTIME [facility] Last Admin: 12/07/16 22:03 Dose: 0.4 mg Vital Signs 12/07/16 12/07/16 12/07/16 11:12 15:17 19:30 Temperature 99.0 F 98.4 F 98.1 F Pulse Rate 80 80 80 Respiratory 18 16 Rate Blood Pressure 113/62 100/61 103/61 (mmHg) O2 Sat by Pulse 95 98 95 Oximetry 12/07/16 12/07/16 12/07/16 20:00 20:56 23:54 Temperature 99.0 F Pulse Rate 80 Respiratory 16 20 Rate Blood Pressure 91/52 (mmHg) O2 Sat by Pulse 96 98 Oximetry 12/08/16 12/08/16 03:06 08:31 Temperature 98.7 F Pulse Rate 80 80 Respiratory 20 16 Rate Blood Pressure 100/57 (mmHg) O2 Sat by Pulse 98 95 Oximetry Oxygen Devices in Use Now: None Appearance: Elderly male, lying in bed, in NAD Eyes: No Scleral Icterus Ears/Nose/Mouth/Throat: Mucous Membranes Moist Neck: NL Appearance and Movements; NL JVP Respiratory: Symmetrical Chest Expansion and Respiratory Effort, - - mild bibasilar crackles Cardiovascular: NL Sounds; No Murmurs; No JVD, RRR Abdominal: NL Sounds; No Tenderness; No Distention Extremities: - - +2 BLE edema Neurological: Alert and Oriented x 3, NL Muscle Strength and Tone Lines/Tubes/Other Access: Clean, Dry and Intact Peripheral IV Nutrition: Taking PO's Result Diagrams: 12/07/16 05:00 12/07/16 05:00 Additional Lab and Data: Lab Results 12/06/16 12/06/16 12/06/16 Range/Units 18:27 18:27 18:27 WBC 6.8 (3.5-10.8) 10^3/ul RBC 3.95 L (4.0-5.4) 10^6/ul Hgb 12.2 L (14.0-18.0) g/dl Hct 37 L (42-52) % MCV 94 (80-94) fL MCH 31 (27-31) pg MCHC 33 (31-36) g/dl RDW 15 (10.5-15) % Plt Count 196 (150-450) 10^3/ul MPV 8 (7.4-10.4) um3 Neut % (Auto) 66.3 (38-83) % Lymph % (Auto) 16.5 L (25-47) % [place] % (Auto) 10.6 H (1-9) % Eos % (Auto) 5.7 (0-6) % Baso % (Auto) 0.9 (0-2) % Absolute Neuts (auto) 4.5 (1.5-7.7) 10^3/ul Absolute Lymphs (auto) 1.1 (1.0-4.8) 10^3/ul Absolute Monos (auto) 0.7 (0-0.8) 10^3/ul Absolute Eos (auto) 0.4 (0-0.6) 10^3/ul Absolute Basos (auto) 0.1 (0-0.2) 10^3/ul Absolute Nucleated RBC 0 10^3/ul Nucleated RBC % 0.1 Sodium 136 (133-145) mmol/L Potassium 4.1 (3.5-5.0) mmol/L Chloride 102 (101-111) mmol/L Carbon Dioxide 28 (22-32) mmol/L Anion Gap 6 (2-11) mmol/L BUN 27 H (6-24) mg/dL Creatinine 1.98 H (0.67-1.17) mg/dL Est GFR ( Amer) 41.1 (>60) Est GFR (Non-Af Amer) 32.0 (>60) BUN/Creatinine Ratio 13.6 (8-20) Glucose 103 H (70-100) mg/dL Lactic Acid 1.2 (0.5-2.0) mmol/L Calcium 9.0 (8.6-10.3) mg/dL Total Bilirubin 0.60 (0.2-1.0) mg/dL AST 6 L (13-39) U/L ALT 4 L (7-52) U/L Alkaline Phosphatase 43 (34-104) U/L Troponin I 0.02 (<0.04) ng/mL Total Protein 6.5 (6.4-8.9) g/dL Albumin 3.7 (3.2-5.2) g/dL Globulin 2.8 (2-4) g/dL Albumin/Globulin Ratio 1.3 (1-3) Assess/Plan/Problems-Billing Assessment: Mr. Jacobs is an 89 yo male who has a PMH significant for CAD, CHF with EF 30-35 %, COPD, CKD, HTN, hypothyroidism, OA, GERD, HLD, lymphedema, BPH, TRISHA, and [place] with cochlear implant who presented to the ED on 12/06 with concern for shortness of breath, orthopnea, RUQ abd pain and fullness. - Patient Problems (1) Elevated troponin Code(s): R74.8 - ABNORMAL LEVELS OF OTHER SERUM ENZYMES Comment: Suspect in the presence of atrial fibrillation with some RVR Patient c/o chest discomfort and was noted to be in 120s on the monitor Now improved with better rate control Will check echo and pacer interrogation (2) Congestive heart failure with left ventricular diastolic dysfunction Code(s): I50.30 - UNSPECIFIED DIASTOLIC (CONGESTIVE) HEART FAILURE Comment: With acute exacerbation, now improving Orthopnea noted with peripheral edema at admission Previous echo shows EF 30-35% with systolic dysfunction Recheck echocardiogram Continue IV furosemide Strict I/O, daily weights Cont metoprolol, isosorbide mononitrate, simvastatin. (3) CAD (coronary artery disease) Code(s): I25.10 - ATHSCL HEART DISEASE OF [place] CORONARY ARTERY W/O ANG PCTRS Comment: Stable Continue metoprolol, statin, isosorbide mononitrate (4) COPD (chronic obstructive pulmonary disease) Code(s): J44.9 - CHRONIC OBSTRUCTIVE PULMONARY DISEASE, UNSPECIFIED Comment: Stable, not in exacerbation Continue albuterol, Symbicort (5) CKD (chronic kidney disease) stage 3, GFR 30-59 ml/min Code(s): N18.3 - CHRONIC KIDNEY DISEASE, STAGE 3 (MODERATE) Comment: Acute on chronic kidney disease Baseline appears to be between 1.5 and 1.6 Continue to follow, especially with IV furosemide Avoid nephrotoxic medications (6) GERD (gastroesophageal reflux disease) Code(s): K21.9 - GASTRO-ESOPHAGEAL REFLUX DISEASE WITHOUT ESOPHAGITIS Comment : Continue omeprazole. (7) BPH (benign prostatic hyperplasia) Code(s): N40.0 - BENIGN PROSTATIC HYPERPLASIA WITHOUT LOWER URINRY TRACT SYMP Comment: Continue tamsulosin. (8) Hypothyroidism Code(s): E03.9 - HYPOTHYROIDISM, UNSPECIFIED Comment: Continue levothyroxine. 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 (10) DVT prophylaxis Comment: Apixaban (11) DNR (do not resuscitate) Status and Disposition: Inpatient admit. Anticipate dc in 2-3 days.
[2016-12-08] MEDS: Furosemide IV* 10 MG/ML VIAL (40 MG) IV SLOW PU SCH (13:07)
--- NOTE | 2016-12-08 16:33 | ECHO ---
Patient: BETTE NORTON [facility] Rec#: [id number] : 1925 Date: 12/08/2016 Age: 89y Height: 182.9 cm / 72.0 in Weight: 92.5 kg / 203.9 lbs Sex: M BSA: 2.15 Room#: 443 Admit Date#: 12/06/2016 Type: Inpatient Referring: Naomie Jefferson Reading: Neo Santos MD Crank Hand: Adriana Munoz RN RDCS CC: Mati Yoon MD Transthoracic Echocardiogram Indication: CHF, SOB BP: 100/57 HR: 80 Rhythm: Paced Findings History: CAD, CHF, pacemaker/ICD, HTN, HLD, COPD, TRISHA, hypothyroidism, lymphedema, CKD Technical Comments: The study quality is fair. Completed at 1130. Left Ventricle: The left ventricular chamber size is mildly dilated. Mild to moderate concentric left ventricular hypertrophy is observed. There is a focal wall motion abnormality present.There is severe hypo to akinesis of the most distal anterior, anteroseptal and mid to distal inferior wall and apical region. There is moderately decreased left ventricular systolic function. The estimated ejection fraction is 35-40%. There is abnormal ventricular septal wall motion consistent with right ventricular pacemaker. The assessment of diastolic function is non-diagnostic. The patient was unable to perform a Valsalva maneuver. Left Atrium: The left atrium is moderately dilated. Right Ventricle: The right ventricular cavity size is normal. The right ventricular global systolic function is mildly reduced. A pacemaker wire is visualized in the right ventricle. Right Atrium: The right atrium is mildly dilated. A pacemaker wire is visualized in the right atrium. Aortic Valve: The aortic valve is trileaflet. The aortic valve leaflets are moderately thickened. Systolic excursion of the aortic valve cusps is reduced. There is no evidence of aortic regurgitation. There is moderate to severe aortic stenosis. The mean gradient of the aortic valve is 9.7 mmHg. The peak instantaneous gradient of the aortic valve is 16 mmHg. The aortic valve area, by peak velocities, is calculated at 0.9 cm2. The aortic valve area, by VTI's, is calculated at 1 cm2. The dimensionless index is 0.28 to 0.31, suggesting moderate to severe. Highest aortic valve velocity was acquired with Pedoff in apical position. Mitral Valve: Mild mitral annular calcification present. The mitral valve leaflets are mildly thickened. There is moderate to severe mitral regurgitation. There is no evidence of mitral stenosis. Pulmonary vein flow reversal is present. Tricuspid Valve: The tricuspid valve leaflets are normal. There is mild tricuspid regurgitation. There is evidence of mild to moderate pulmonary hypertension. Pulmonic Valve: The pulmonic valve structure is not well visualized. There is mild pulmonic regurgitation. There is no pulmonic stenosis. Pericardium: There is no significant pericardial effusion. A pericardial fat pad is visualized. Aorta: The ascending aorta is not well visualized. The aortic arch is not well visualized. There is mild dilatation of the aortic root. Pulmonary Artery: The main pulmonary artery is not well visualized. Venous: The inferior vena cava is not visualized. Conclusions Mild to moderate concentric left ventricular hypertrophy is observed. There is severe hypo to akinesis of the most distal anterior, anteroseptal and mid to distal inferior wall and apical region. There is moderately decreased left ventricular systolic function. The estimated ejection fraction is 35-40%. The left atrium is moderately dilated. The right ventricular global systolic function is mildly reduced. The right atrium is mildly dilated. There is moderate to severe aortic stenosis. The mean gradient of the aortic valve is 9.7 mmHg. There is moderate to severe mitral regurgitation. Pulmonary vein flow reversal is present. There is mild tricuspid regurgitation. There is evidence of mild to moderate pulmonary hypertension. There is mild pulmonic regurgitation. There is mild dilatation of the aortic root. Compared to report of study from 07/06/2016 the degree of mitral regurgitation has increased (was moderate), the degree of tricuspid regurgitation has increased from trace. Measurements Name Value Normal Range RVDdMajor (2D) 3.9 cm (2.2 - 4.4) RAd ISD 4CH 5.6 cm (3.4 - 4.9) RA (A4C)W 3.3 cm (2.9 - 4.6) IVSd (2D) 1.2 cm (0.6 - 1) LVPWd (2D) 1.3 cm (0.6 - 1) LVIDd (2D) 5.7 cm (3.6 - 5.4) LVIDs (2D) 4.6 cm - LV FS (2D) 19 % (25 - 45) EF Teichholz (2D) 40 % - Aortic Annulus 2.3 cm (1.4 - 2.6) Ao root diameter (2D) 3.7 cm (2.1 - 3.5) LA dimension (AP) 2D 4.6 cm (2.3 - 3.8) LAd ISD 4CH 6.8 cm (2.9 - 5.3) LA ISD 4CH W 4.3 cm (2.5 - 4.5) Name Value Normal Range LA ESV SP 4CH (A/L) 104 ml - LA ESV SP 2CH (A/L) 106 ml - LA ESV BP (A/L) 107 ml - LA ESV BP (A/L) index 49.8 ml/m2 - LA ESV SP 4CH (MOD) 98 ml - LA ESV SP 2CH (MOD) 101 ml - Name Value Normal Range MV E-wave Vmax 1.2 m/sec - MV deceleration time 211 msec - MV A-wave Vmax 0.45 m/sec - MV E:A ratio 2.6 ratio - LV septal e' Vmax 0.07 m/sec - LV lateral e' Vmax 0.1 m/sec - LV E:e' septal ratio 17 ratio - LV E:e' lateral ratio 12 ratio - Name Value Normal Range AV Vmax 2 m/sec - AV VTI 33.2 cm - AV peak gradient 16 mmHg - AV mean gradient 9.7 mmHg - LVOT diameter 2 cm - LVOT Vmax 0.57 m/sec - LVOT VTI 10.4 cm - LVOT peak gradient 1.3 mmHg - LVOT mean gradient 0.7 mmHg - DOI (VTI) 0.31 ratio - DOI (Vmax) 0.28 ratio - SV LVOT 32.7 ml - CO LVOT 2.6 l/min - Cardiac index 1.2 l/min/m2 - BETY (continuity Vmax) 0.9 cm2 - BETY (continuity VTI) 1 cm2 - Name Value Normal Range MR Vmax 5 m/sec - MR VTI 141 cm - MR volume (PISA) 48 ml - MR flow (PISA) 164 ml/sec - MR ERO 0.34 cm2 - MR PISA radius 0.8 cm - MR alias Vmax 43 cm/sec - Name Value Normal Range TR Vmax 2.9 m/sec - TR peak gradient 34 mmHg - RAP 8 mmHg - RVSP 42 mmHg - Name Value Normal Range PV Vmax 0.37 m/sec -
[2016-12-08] MEDS: Atorvastatin* 10 MG TAB PO SCH (21:05)
[2016-12-08] MEDS: Tamsulosin CAP* 0.4 MG PO SCH (21:05)
[2016-12-09] MEDS: Levothyroxine TAB* 137 MCG TAB PO SCH (05:15)
[2016-12-09 06:16] LABS: BUN/Creatinine Ratio 17.5 (8-20); Calcium 9.1 mg/dL (8.6-10.3); EGFR African American 46.8 (>60); EGFR Non-African American 36.4 (>60); Potassium 3.6 mmol/L (3.5-5.0)
[2016-12-09] MEDS: Mometasone/Formoter 200/5 MDI INH SCH (08:01)
[2016-12-09] MEDS: Potassium Chlor TAB* 20 MEQ TAB.ER PO SCH (08:41)
[2016-12-09] MEDS: Omeprazole CAP* 20 MG PO SCH (08:41)
[2016-12-09] MEDS: Apixaban* 2.5 MG TAB PO SCH (08:41)
[2016-12-09] MEDS: Furosemide IV* 10 MG/ML VIAL (40 MG) IV SLOW PU SCH (08:41)
[2016-12-09] MEDS: Isosorbide Mononitrate ER TAB* 60 MG PO SCH (08:41)
[2016-12-09] MEDS: CMCS Epleronone (NF) 25 MG TAB PO SCH (08:41)
[2016-12-09] MEDS: Metoprolol Tartrate TAB* 50 mg PO SCH (09:57)
--- NOTE | 2016-12-09 12:00 | DCNOTE ---
Subjective Date of Service: 12/09/16 Interval History: Patient seen and examined at bedside. Denies chest pain, dyspnea, orthopnea. Reports improvement in LE edema. Does not want any further testing, wants to go home. Family History: Unchanged from Admission Social History: Unchanged from Admission Past Medical History: Unchanged from Admission Objective Active Medications: Acetaminophen (Tylenol Tab*) 650 mg PO Q4H PRN PRN Reason: FEVER/PAIN Albuterol (Ventolin 2.5 Mg/3 Ml Neb.Blanca*) 2.5 mg INH Q2H PRN PRN Reason: SOB/WHEEZING Apixaban (Eliquis) 2.5 mg PO BID [facility] Last Admin: 12/09/16 08:41 Dose: 2.5 mg Atorvastatin Calcium (Lipitor*) 10 mg PO BEDTIME [facility] Last Admin: 12/08/16 21:05 Dose: 10 mg Eplerenone (Inspra (Nf)) 50 mg PO DAILY [facility] Last Admin: 12/09/16 08:41 Dose: 50 mg Furosemide (Lasix Iv*) 40 mg IV SLOW PU DAILY [facility] Last Admin: 12/09/16 08:41 Dose: 40 mg Isosorbide Mononitrate (Imdur Er Tab*) 60 mg PO DAILY [facility] Last Admin: 12/09/16 08:41 Dose: 60 mg Levothyroxine Sodium (Synthroid Tab*) 137 mcg PO MoTuWeThFrSa@0600 [facility] Last Admin: 12/09/16 05:15 Dose: 137 mcg Levothyroxine Sodium (Synthroid Tab*) 68.5 mcg PO Seymour@0600 [facility] Metoprolol Tartrate (Lopressor Tab*) 75 mg PO BID [facility] Last Admin: 12/09/16 09:57 Dose: 75 mg Mometasone Furoate/Formoterol Fumar (Dulera 200/5 Mdi*) 1 puff INH BID [facility] PRN Reason: Protocol Last Admin: 12/09/16 08:01 Dose: 1 puff Omeprazole (Prilosec Cap*) 20 mg PO DAILY [facility] Last Admin: 12/09/16 08:41 Dose: 20 mg Ondansetron HCl (Zofran Inj*) 4 mg IV Q6H PRN PRN Reason: NAUSEA Potassium Chloride (Klor Con Er Tab*) 20 meq PO DAILY [facility] Last Admin: 12/09/16 08:41 Dose: 20 meq Tamsulosin HCl (Flomax Cap*) 0.4 mg PO BEDTIME [facility] Last Admin: 12/08/16 21:05 Dose: 0.4 mg Vital Signs 12/08/16 12/08/16 12/08/16 12:12 15:27 19:22 Temperature 98.3 F 98.2 F 97.4 F Pulse Rate 80 82 78 Respiratory 20 20 20 Rate Blood Pressure 102/67 99/68 104/62 (mmHg) O2 Sat by Pulse 96 96 92 Oximetry 12/08/16 12/08/16 12/08/16 20:00 20:18 21:01 Temperature Pulse Rate 80 Respiratory 18 18 Rate Blood Pressure (mmHg) O2 Sat by Pulse 91 100 Oximetry 12/08/16 12/09/16 12/09/16 23:08 03:26 07:36 Temperature 97.9 F 98.3 F 97.4 F Pulse Rate 80 82 81 Respiratory 24 24 16 Rate Blood Pressure 103/63 97/55 104/61 (mmHg) O2 Sat by Pulse 100 97 94 Oximetry 12/09/16 12/09/16 08:00 09:55 Temperature Pulse Rate Respiratory 17 Rate Blood Pressure 130/75 (mmHg) O2 Sat by Pulse Oximetry Oxygen Devices in Use Now: None Appearance: Elderly male, lying flat in bed, comfortable, in NAD Eyes: No Scleral Icterus Ears/Nose/Mouth/Throat: Mucous Membranes Moist Neck: NL Appearance and Movements; NL JVP Respiratory: Symmetrical Chest Expansion and Respiratory Effort, - - diminished but good aeration throughout Cardiovascular: - - irregular rate/rhythm Extremities: - - 1-2+ BLE edema Neurological: Alert and Oriented x 3 Lines/Tubes/Other Access: Clean, Dry and Intact Peripheral IV Nutrition: Taking PO's Result Diagrams: 12/07/16 05:00 12/09/16 05:27 Additional Lab and Data: Lab Results 12/06/16 12/06/16 12/06/16 Range/Units 18:27 18:27 18:27 WBC 6.8 (3.5-10.8) 10^3/ul RBC 3.95 L (4.0-5.4) 10^6/ul Hgb 12.2 L (14.0-18.0) g/dl Hct 37 L (42-52) % MCV 94 (80-94) fL MCH 31 (27-31) pg MCHC 33 (31-36) g/dl RDW 15 (10.5-15) % Plt Count 196 (150-450) 10^3/ul MPV 8 (7.4-10.4) um3 Neut % (Auto) 66.3 (38-83) % Lymph % (Auto) 16.5 L (25-47) % [place] % (Auto) 10.6 H (1-9) % Eos % (Auto) 5.7 (0-6) % Baso % (Auto) 0.9 (0-2) % Absolute Neuts (auto) 4.5 (1.5-7.7) 10^3/ul Absolute Lymphs (auto) 1.1 (1.0-4.8) 10^3/ul Absolute Monos (auto) 0.7 (0-0.8) 10^3/ul Absolute Eos (auto) 0.4 (0-0.6) 10^3/ul Absolute Basos (auto) 0.1 (0-0.2) 10^3/ul Absolute Nucleated RBC 0 10^3/ul Nucleated RBC % 0.1 Sodium 136 (133-145) mmol/L Potassium 4.1 (3.5-5.0) mmol/L Chloride 102 (101-111) mmol/L Carbon Dioxide 28 (22-32) mmol/L Anion Gap 6 (2-11) mmol/L BUN 27 H (6-24) mg/dL Creatinine 1.98 H (0.67-1.17) mg/dL Est GFR ( Amer) 41.1 (>60) Est GFR (Non-Af Amer) 32.0 (>60) BUN/Creatinine Ratio 13.6 (8-20) Glucose 103 H (70-100) mg/dL Lactic Acid 1.2 (0.5-2.0) mmol/L Calcium 9.0 (8.6-10.3) mg/dL Total Bilirubin 0.60 (0.2-1.0) mg/dL AST 6 L (13-39) U/L ALT 4 L (7-52) U/L Alkaline Phosphatase 43 (34-104) U/L Troponin I 0.02 (<0.04) ng/mL Total Protein 6.5 (6.4-8.9) g/dL Albumin 3.7 (3.2-5.2) g/dL Globulin 2.8 (2-4) g/dL Albumin/Globulin Ratio 1.3 (1-3) Assess/Plan/Problems-Billing Assessment: Mr. Jacobs is an 89 yo male who has a PMH significant for CAD, CHF with EF 30-35 %, COPD, CKD, HTN, hypothyroidism, OA, GERD, HLD, lymphedema, BPH, TRISHA, and [place] with cochlear implant who presented to the ED on 12/06 with concern for shortness of breath, orthopnea, RUQ abd pain and fullness. - Patient Problems (1) Elevated troponin Code(s): R74.8 - ABNORMAL LEVELS OF OTHER SERUM ENZYMES Comment: Suspect in the presence of atrial fibrillation with some RVR Patient c/o chest discomfort and was noted to be in 120s on the monitor Now improved with better rate control Will check echo and pacer interrogation (2) Congestive heart failure with left ventricular diastolic dysfunction Code(s): I50.30 - UNSPECIFIED DIASTOLIC (CONGESTIVE) HEART FAILURE Comment: With acute exacerbation, now resolved Orthopnea noted with peripheral edema at admission Previous echo shows EF 30-35% with systolic dysfunction Repeat echo continues to show reduced LV systolic function, EF 35-40% w/mod- severe and TR. Strict I/O, daily weights Cont metoprolol, isosorbide mononitrate, simvastatin, torsemide, eplerenone (3) CAD (coronary artery disease) Code(s): I25.10 - ATHSCL HEART DISEASE OF [place] CORONARY ARTERY W/O ANG PCTRS Comment: Stable Continue metoprolol, statin, isosorbide mononitrate (4) COPD (chronic obstructive pulmonary disease) Code(s): J44.9 - CHRONIC OBSTRUCTIVE PULMONARY DISEASE, UNSPECIFIED Comment: Stable, not in exacerbation Continue albuterol, Symbicort (5) CKD (chronic kidney disease) stage 3, GFR 30-59 ml/min Code(s): N18.3 - CHRONIC KIDNEY DISEASE, STAGE 3 (MODERATE) Comment: Creatinine slightly increased, secondary to IV furosemide Acute on chronic kidney disease Baseline appears to be between 1.5 and 1.6 Avoid nephrotoxic medications Outpatient f/u BMP (6) GERD (gastroesophageal reflux disease) Code(s): K21.9 - GASTRO-ESOPHAGEAL REFLUX DISEASE WITHOUT ESOPHAGITIS Comment : Continue omeprazole. (7) BPH (benign prostatic hyperplasia) Code(s): N40.0 - BENIGN PROSTATIC HYPERPLASIA WITHOUT LOWER URINRY TRACT SYMP Comment: Continue tamsulosin. (8) Hypothyroidism Code(s): E03.9 - HYPOTHYROIDISM, UNSPECIFIED Comment: Continue levothyroxine. 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 (10) DVT prophylaxis Comment: Apixaban (11) DNR (do not resuscitate) Status and Disposition: Inpatient admit. Dc to home. Discussed with patient f/u with PCP and cardiology to further optimize management and pursue further testing, such as stress test, if patient agrees to do so in the future.
[2016-12-09 12:41] VITALS: BP 100/80
--- NOTE | 2016-12-09 22:08 | DS ---
CC: Mati Yoon MD; Dr. Montana Arcadia * DISCHARGE SUMMARY: DATE OF ADMISSION: 12/06/16. DATE OF DISCHARGE: 12/09/16. PROVIDER: Niall Block NP. ATTENDING PHYSICIAN: Dr. Yessy Perkins * (as dictated by Niall Block NP). PRIMARY CARE PROVIDER: Dr. Mati Yoon. CAMP COOK: Dr. Montana Arcadia PRIMARY DISCHARGE DIAGNOSES: 1. Suspected [id number] systolic heart failure exacerbation. 2. Atrial fibrillation with rapid ventricular response. 3. Elevated troponin secondary to demand ischemia from atrial fibrillation. SECONDARY DISCHARGE DIAGNOSES: 1. Coronary artery disease status post coronary artery bypass graft in 2002. 2. Previously known history of congestive heart failure with preserved ejection fraction. 3. Chronic obstructive pulmonary disease. 4. Chronic kidney disease. 5. Arthritis. 6. Gastroesophageal reflux disease. 7. Hyperlipidemia. 8. Chronic lymphedema in the bilateral lower extremities. 9. Benign prostatic hyperplasia. 10. Obstructive sleep apnea. 11. Hard of hearing with cochlear implant. 12. Hypertension. 13. Hypothyroidism. 14. History of cerebrovascular accident. 15. Obesity. 16. Melanoma. 17. Neuropathy. MEDICATIONS AT DISCHARGE: 1. Levothyroxine 68.5 mcg on Wednesday and 137 mcg on Wednesday through Wednesday. 2. Isosorbide mononitrate ER 60 mg daily. 3. Metoprolol tartrate 75 mg b.i.d. 4. Torsemide 20 mg daily. 5. Tamsulosin 0.4 mg at bedtime. 6. Simvastatin 20 mg at bedtime. 7. Metamucil plus calcium 1 capsule daily. 8. Potassium chloride 20 mEq daily. 9. Omeprazole 20 mg daily. 10. [place]-3 one capsule daily. 11. Multivitamin 1 tab daily. 12. Eplerenone 50 mg daily. 13. Symbicort 160/4.5 one puff inhaled b.i.d. 14. Apixaban 2.5 mg b.i.d. 15. Albuterol inhaler 1 puff inhaled q.4 hours p.r.n. 16. Tylenol 650 mg q.4 hours p.r.n. HOSPITAL COURSE OF STAY: Please see the H and P provided by Trav Preston NP on admission. In summary, Mr. Jacobs is an 89-year-old male patient who presented to the ER with right upper quadrant pain, increased dyspnea with exertion, lower extremity swelling, and orthopnea. The patient stated that he had noted that he had gained about 6 pounds, but could not tell the time period of this weight gain. He was admitted with concern for CHF exacerbation. The patient reported improvement after receiving first dose of IV Lasix. On discussion with the patient, he does state that he thinks he is on a low-sodium diet at [place], but does add salt to his food. He could not say how much, but just says that he adds salt for taste and does this with some regularity. Here in the hospital, the patient underwent fairly aggressive diuresis with daily IV furosemide with good effect. The patient's admitting weight was 214 pounds and he was noted to be 203 pounds and 12 ounces upon discharge. Lower extremity edema has significantly improved. The patient's symptoms have also improved. There was a period when the patient reported some chest discomfort that he described as electrical type feeling on his heart, troponins were trended and it was noted the patient's troponin was mildly elevated at 0.06. No significant changes noted to EKG except for atrial fibrillation. We did also interrogate his pacemaker ICD, which showed atrial activity. The patient was unsure if this was new. Records were requested from the cardiology office, but were unobtainable however, the patient had showed marked improvement. We discussed that he may benefit from an outpatient stress test if he chooses to do so, he did not wish to do so at this time stating that he feels better and he would like to get back home to [place]. We did repeat an echocardiogram, which did show the patient has an ejection fraction of 35% to 40%. There is severe hypo to akinesis of the most distal anterior, anteroseptal, and mid-to- distal inferior wall and apical region and moderately decreased left ventricular systolic function. The patient has moderate- to-severe aortic stenosis and [id number] mitral regurgitation with a mean gradient of the aortic valve being 9.7 mmHg, and there is also evidence of mild-to- moderate pulmonary hypertension and this is roughly similar in comparison to his June 2016 study where the degree of mitral regurgitation has increased and the degree of tricuspid regurgitation has increased from trace to mild. As far as the patient's medications, his blood pressures have run on the soft side here in the hospital and it was difficult to titrate medications for better control at home; however, we did discuss the importance of maintaining a low-sodium diet in order to prevent exacerbation. There is also concern that increasing his torsemide may contribute to overdiuresis as the patient's BUN to creatinine ratio increased over the course of his stay. At this point in time, the patient should be maintained on his current doses of eplerenone, torsemide, as well as that of cardiac medications because renal function and blood pressures do not currently allow for any other medications, although I did encourage him to follow up with his PCP and ear mold laboratory technician for further monitoring and further optimization of medications if necessary. CONCERNS AT DISCHARGE: Mr. Jacobs was discharged to [facility]. He is to follow up with his PCP within 7 to 10 days. DIET: Low-sodium diet. ACTIVITY: As tolerated. The patient has home PT already and utilizes an electric wheelchair. CONDITION: Improved, stable. DISPOSITION: To home at [facility]. TIME SPENT: Time spent on this discharge was approximately 45 minutes. Again, this is only a brief summary of the patient's hospital course of stay. For full details, please refer to the full medical record. If you need any further assistance, please feel free to contact me at . NIALL BLOCK NP [id number]/[facility] #: [id number] AGUSTIN
--- NOTE | 2016-12-10 08:49 | ED ---
French Godoy Thomas, scribed for Diego Hawkins MD on 12/06/16 at 2021 . Shortness of Breath - HPI Summary HPI Summary: The pt is a 89 y/o M accompanied by his daughter and presenting to the ED c/o SOB when talking that has been building up over the last few weeks. He reports that he does not have painful breathing. He also complains of sharp RUQ pain that began today before dinner at 17:30. The pain is aggravated and alleviated by nothing. 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 Pt additionally c /o a cough, bilateral leg swelling, and anorexia (over last 6-8 months). He also has a chronic flutter. Per his daughter, tends to develop acute symptoms when others are in the room. He is terrified to . He gets around with a wheelchair. He is on Lasix 20mg daily and also a blood thinner. PMHx: HTN, COPD , CKD, CHF, HLD, TIA. PSHx: pacemaker, coronary stents, cholecystectomy. SHx: former smoker, no alcohol use, no illicit drug use. He lives at [facility]. His of 60 years from dementia 3 years ago. 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 - daughter is in room Onset/Duration: Lasting Weeks - "last few weeks", Still Present Timing: Constant Dyspnea At: Rest - and when talking Aggrevating Factors: Nothing Alleviating Factors: Nothing Associated Signs & Symptoms: Cough (Nonproductive), Edema - legs - Allergy/Home Medications Allergies/Adverse Reactions: Allergies Allergy/AdvReac Type Severity Reaction Status Date / Time Clarithromycin [From Biaxin] Allergy GI Upset Verified 07/03/16 21:21 Spironolactone Allergy Unknown Verified 07/03/16 21:42 Reaction Details Home Medications: Home Medications Apixaban* [Eliquis*] 2.5 mg PO BID 12/06/16 [History Confirmed 12/06/16] Eplerenone [Inspra] 50 mg PO DAILY 12/06/16 [History Confirmed 12/06/16] Isosorbide Mononitrate ER TAB* [Imdur ER TAB*] 60 mg PO DAILY 12/06/16 [History Confirmed 12/06/16] Levothyroxine TAB* [Synthroid 137 MCG TAB*] 68.5 mcg PO FREEMAN 12/06/16 [History Confirmed 12/06/16] Metoprolol Tartrate TAB* [Lopressor TAB*] 75 mg PO BID 12/06/16 [History Confirmed 12/06/16] Psyllium W/ Calcium [Metamucil Plus Calcium] 1 cap PO DAILY 12/06/16 [History Confirmed 12/06/16] Torsemide TAB* [Demadex 20 MG*] 20 mg PO DAILY 12/06/16 [History Confirmed 12/06] PMH/Surg Hx/FS Hx/Imm Hx Previously Healthy: No Endocrine/Hematology History: Reports: Hx Thyroid Disease - hypo Cardiovascular History: Reports: Hx Congestive Heart Failure, Hx Coronary Artery Disease, Hx Hypercholesterolemia, Hx Hypertension, Hx Pacemaker/ICD, Other Cardiovascular Problems/Disorders - BY-PASS X3 Respiratory History: Reports: Hx Chronic Obstructive Pulmonary Disease (COPD), Hx Sleep Apnea GI History: Reports: Hx Gastroesophageal Reflux Disease History: Reports: Hx Benign Prostatic Hyperplasia, Other Problems/ Disorders - CKD Musculoskeletal History: Comment Only: Other Musculoskeletal History - osteoarthritis Sensory History: Reports: Hx Contacts or Glasses, Hx Hearing Aid - implant on left, Hx Hearing Problem - implant Opthamlomology History: Reports: Hx Contacts or Glasses Neurological History: Reports: Hx Transient Ischemic Attacks (TIA), Other Neuro Impairments/Disorders - neuropathy - Surgical History Surgery Procedure, Year, and Place: PACEMAKER, CORONARY STENTS - Immunization History Date of Tetanus Vaccine: utd Date of Influenza Vaccine: utd Infectious Disease History: No Infectious Disease History: Denies: Traveled Outside the [place] in Last 30 Days - Family History Known Family History: Positive: Cardiac Disease - Hx CAD <55 in two older brothers, Hypertension, Other - HLD - Social History Alcohol Use: None Hx Substance Use: No Substance Use Type: Reports: None Smoking Status (MU): Former Smoker Review of Systems Negative: Fever, Chills Negative: Erythema - eye Negative: Sore Throat Negative: Chest Pain Positive: Shortness Of Breath, Cough Positive: Abdominal Pain - RUQ, onset before dinner, Nausea, Other - POS: anorexia (over last 6-8 months). Negative: Vomiting Negative: dysuria, hematuria Positive: Edema - leg. Negative: Myalgia Negative: Rash Neurological: Other - NEG: dizziness All Other Systems Reviewed And Are Negative: Yes Physical Exam - Summary Physical Exam Summary: Constitutional: Well-developed, Well-nourished, Alert. (-) Distressed Skin: Warm, Dry HENT: Normocephalic; Atraumatic Eyes: Conjunctiva normal Neck: Musculoskeletal ROM normal neck. (-) JVD, (-) Stridor, (-) Tracheal deviation Cardio: Rhythm regular, rate normal, Heart sounds normal; Intact distal pulses; The pedal pulses are 2+ and symmetric. Radial pulses are 2+ and symmetric. (-) Murmur Pulmonary/Chest wall: There are rales in the bases. Effort normal. (-) Respiratory distress, (-) Wheezes Abd: Soft, (-) Tenderness, (-) Distension, (-) Guarding, (-) Rebound Musculoskeletal: 3+ pitting edema in the lower extremities. Lymph: (-) Cervical adenopathy Neuro: Alert, Oriented x3 Psych: Mood and affect Normal Triage Information Reviewed: Yes Vital Signs On Initial Exam: Initial Vitals Temp Pulse Resp BP Pulse Ox 97.6 F 71 18 128/74 97 12/06/16 18:12 12/06/16 18:12 12/06/16 18:12 12/06/16 18:12 12/06/16 18:12 Vital Signs Reviewed: Yes - Lance Coma Scale Coma Scale Total: 15 Diagnostics - Vital Signs Vital Signs Temp Pulse Resp BP Pulse Ox 12/06/16 18:43 96 12/06/16 18:15 111/90 12/06/16 18:14 70 96 12/06/16 18:12 97.6 F 71 18 128/74 97 - Laboratory Lab Results: Lab Results 12/06/16 12/06/16 12/06/16 Range/Units 18:27 18:27 18:27 WBC 6.8 (3.5-10.8) 10^3/ul RBC 3.95 L (4.0-5.4) 10^6/ul Hgb 12.2 L (14.0-18.0) g/dl Hct 37 L (42-52) % MCV 94 (80-94) fL MCH 31 (27-31) pg MCHC 33 (31-36) g/dl RDW 15 (10.5-15) % Plt Count 196 (150-450) 10^3/ul MPV 8 (7.4-10.4) um3 Neut % (Auto) 66.3 (38-83) % Lymph % (Auto) 16.5 L (25-47) % [place] % (Auto) 10.6 H (1-9) % Eos % (Auto) 5.7 (0-6) % Baso % (Auto) 0.9 (0-2) % Absolute Neuts (auto) 4.5 (1.5-7.7) 10^3/ul Absolute Lymphs (auto) 1.1 (1.0-4.8) 10^3/ul Absolute Monos (auto) 0.7 (0-0.8) 10^3/ul Absolute Eos (auto) 0.4 (0-0.6) 10^3/ul Absolute Basos (auto) 0.1 (0-0.2) 10^3/ul Absolute Nucleated RBC 0 10^3/ul Nucleated RBC % 0.1 Sodium 136 (133-145) mmol/L Potassium 4.1 (3.5-5.0) mmol/L Chloride 102 (101-111) mmol/L Carbon Dioxide 28 (22-32) mmol/L Anion Gap 6 (2-11) mmol/L BUN 27 H (6-24) mg/dL Creatinine 1.98 H (0.67-1.17) mg/dL Est GFR ( Amer) 41.1 (>60) Est GFR (Non-Af Amer) 32.0 (>60) BUN/Creatinine Ratio 13.6 (8-20) Glucose 103 H (70-100) mg/dL Lactic Acid 1.2 (0.5-2.0) mmol/L Calcium 9.0 (8.6-10.3) mg/dL Total Bilirubin 0.60 (0.2-1.0) mg/dL AST 6 L (13-39) U/L ALT 4 L (7-52) U/L Alkaline Phosphatase 43 (34-104) U/L Troponin I 0.02 (<0.04) ng/mL Total Protein 6.5 (6.4-8.9) g/dL Albumin 3.7 (3.2-5.2) g/dL Globulin 2.8 (2-4) g/dL Albumin/Globulin Ratio 1.3 (1-3) Result Diagrams: 12/07/16 05:00 12/09/16 05:27 Lab Statement: Any lab studies that have been ordered have been reviewed, and results considered in the medical decision making process. - Radiology CXR Xray Interpretation: Positive (See Comments) - CXR shows The constellation of findings is most consistent with mild pulmonary vascular congestion with associated small effusions less prominent than on the July 03, 2016 exam. ED Physician has read this report and agrees. Radiology Interpretation Completed By: Radiologist - CT CT Brain CT Interpretation: No Acute Changes - CT Brain shows Involutional change and stigmata of chronic small vessel ischemic disease. No acute intracranial process evident. ED Physician has read this report and agrees. CT Interpretation Completed By: Radiologist Course/Dx - Course Assessment/Plan: The pt is a 89 y/o M accompanied by his daughter and presenting to the ED c/o SOB when talking that has been building up over the last few weeks. He also complains of sharp RUQ pain that began today before dinner at 17:30. Pt additionally c/o a cough, bilateral leg swelling, and anorexia (over last 6-8 months). He is on Lasix 20mg daily and also a blood thinner. PMHx: HTN, COPD, CKD, CHF, HLD, TIA. PSHx: pacemaker, coronary stents, cholecystectomy. SHx: former smoker, no alcohol use, no illicit drug use. He lives at [facility]. In the ED course the patient was given ASA and Lasiz. Bloodwork shows RBC 3.95, Hgb 12.2, Hct 37, BUN 27, Creatinine 1.98, AST 6, ALT 4. CXR shows The constellation of findings is most consistent with mild pulmonary vascular congestion with associated small effusions less prominent than on the July 03, [address] Brain shows Involutional change and stigmata of chronic small vessel ischemic disease. No acute intracranial process evident. ED Physician has read this report and agrees. I consulted with idris Hameed, who admits the patient to [facility]. - Diagnoses Provider Diagnoses: Congestive heart failure with left ventricular diastolic dysfunction - Physician Notifications Discussed Care of Patient With: Dorian Carranza Time Discussed With Above Provider: 22:30 Instructed by Provider To: Other - idris Hameed, admits the patient to [facility] Discharge - Discharge Plan Condition: Stable Disposition: ADMITTED TO [facility] The documentation as recorded by the French elliott Thomas accurately reflects the service I personally performed and the decisions made by me, Diego Hawkins MD.
[2016-12-13] MEDS ORDERED: Levothyroxine TAB* 137 MCG TAB PO SCH (06:00)
== END 2016-12-09 14:50 | disposition home or self-care (01) | DRG 292 ==
LOC: ED 18:08 → MEDTELE 21:55
PROVIDERS: ADMIT Hospitalist; ATTEND Internal Medicine
DX: I50.23 Acute on chronic systolic (congestive) heart failure (principal); I13.0 Hypertensive heart and chronic kidney disease with heart failure and stage 1 through stage 4 chronic kidney disease, or unspecified chronic kidney disease; I27.2 Other secondary pulmonary hypertension; I48.91 Unspecified atrial fibrillation; J44.9 Chronic obstructive pulmonary disease, unspecified; N18.3 Chronic kidney disease, stage 3 (moderate); Z99.81 Dependence on supplemental oxygen; G62.9 Polyneuropathy, unspecified; E03.9 Hypothyroidism, unspecified; I08.3 Combined rheumatic disorders of mitral, aortic and tricuspid valves; I25.10 Atherosclerotic heart disease of native coronary artery without angina pectoris; M19.90 Unspecified osteoarthritis, unspecified site; K21.9 Gastro-esophageal reflux disease without esophagitis; E66.9 Obesity, unspecified; R74.8 Abnormal levels of other serum enzymes; I89.0 Lymphedema, not elsewhere classified; E78.5 Hyperlipidemia, unspecified; N40.0 Benign prostatic hyperplasia without lower urinary tract symptoms; G47.33 Obstructive sleep apnea (adult) (pediatric); H91.90 Unspecified hearing loss, unspecified ear; Z86.73 Personal history of transient ischemic attack (TIA), and cerebral infarction without residual deficits; Z66 Do not resuscitate; Z85.820 Personal history of malignant melanoma of skin; Z87.891 Personal history of nicotine dependence; Z88.3 Allergy status to other anti-infective agents; Z79.01 Long term (current) use of anticoagulants; Z95.0 Presence of cardiac pacemaker; Z95.5 Presence of coronary angioplasty implant and graft
CPT/HCPCS: 36415; 70450; 71010; 76705; 80048; 80053; 83605; 83880; 84484; 85025; 85379; 87040; 93005; 93306; 94640; 94760; A9270-GY; J1940

== ENCOUNTER 2016-12-20 12:52 | Inpatient (IN) | payer MEDICARE, OTHER ==
[2016-12-20 13:54] LABS: Hematocrit 37 % (42-52); Hemoglobin 12.3 g/dl (14.0-18.0); Mean Corpuscular HGB Conc 33 g/dl (31-36); Mean Corpuscular Hemoglobin 31 pg (27-31); Mean Corpuscular Volume 94 fL (80-94); Mean Platelet Volume 8 um3 (7.4-10.4); Red Blood Count 3.98 10^6/ul (4.0-5.4); Red Cell Distribution Width 14 % (10.5-15); White Blood Count 9.2 10^3/ul (3.5-10.8)
[2016-12-20 14:06] LABS: Albumin 3.6 g/dL (3.2-5.2); BUN/Creatinine Ratio 13.2 (8-20); C Reactive Protein 6.68 mg/L (< 5.00); Calcium 8.9 mg/dL (8.6-10.3); EGFR African American 36.4 (>60); EGFR Non-African American 28.3 (>60); Globulin 3.1 g/dL (2-4); Potassium 4.2 mmol/L (3.5-5.0); Total Bilirubin 0.8 mg/dL (0.2-1.0); Total Protein 6.7 g/dL (6.4-8.9)
[2016-12-20 14:08] LABS: Troponin I 0.03 ng/mL (<0.04)
--- NOTE | 2016-12-20 14:24 | RAD ---
Indication: Shortness of breath. 2 views of the chest demonstrates cardiomegaly. Interstitial edema consistent with vascular congestion is noted. IMPRESSION: Cardiomegaly with interstitial edema consistent with CHF.
[2016-12-20] MEDS ORDERED: Furosemide IV* 10 MG/ML 10 ML VIAL (100 MG) IV ONE (15:53)
[2016-12-20] MEDS ORDERED: Albuterol HFA INHALER* 8 gm MDI INH PRN (16:00)
[2016-12-20] MEDS ORDERED: Acetaminophen TAB* 325 MG PO PRN (16:00)
[2016-12-20] MEDS ORDERED: Furosemide IV* 10 MG/ML 10 ML VIAL (100 MG) ONE (16:01)
--- NOTE | 2016-12-20 16:31 | RAD ---
Indication: Evaluate for ascites. Real-time sonography of the 4 quadrants was performed. No evidence of ascites is noted. IMPRESSION: No evidence of ascites is noted.
--- NOTE | 2016-12-20 17:08 | ED ---
Sabino Godoy Alfonso, scribed for Abimael Mora MD on 12/20/16 at 1305 . Shortness of Breath - HPI Summary HPI Summary: This patient is an 89 year old M presenting to [facility] by ambulance with a chief complaint of SOB since a few weeks ago, worse since today. The patient rates the pain 0/10 in severity. Symptoms aggravated by nothing. Symptoms alleviated by nothing. Patient reports increasing abdominal girth. Patient denies fever, cough, and CP. - History of Current Complaint Time Seen by Provider: 12/20/16 12:55 Hx Obtained From: Patient Onset/Duration: Sudden Onset, Lasting Weeks, Worse Since - today Timing: Constant Aggrevating Factors: Nothing Alleviating Factors: Nothing Associated Signs & Symptoms: Negative - Allergy/Home Medications Allergies/Adverse Reactions: Allergies Allergy/AdvReac Type Severity Reaction Status Date / Time Clarithromycin [From Biaxin] Allergy GI Upset Verified 07/03/16 21:21 Spironolactone Allergy Unknown Verified 07/03/16 21:42 Reaction Details PMH/Surg Hx/FS Hx/Imm Hx Endocrine/Hematology History: Reports: Hx Thyroid Disease - hypo Cardiovascular History: Reports: Hx Congestive Heart Failure, Hx Coronary Artery Disease, Hx Hypercholesterolemia, Hx Hypertension, Hx Pacemaker/ICD, Other Cardiovascular Problems/Disorders - BY-PASS X3 Respiratory History: Reports: Hx Chronic Obstructive Pulmonary Disease (COPD), Hx Sleep Apnea GI History: Reports: Hx Gastroesophageal Reflux Disease History: Reports: Hx Benign Prostatic Hyperplasia, Hx Chronic Renal Failure, Other Problems/Disorders - CKD Musculoskeletal History: Comment Only: Other Musculoskeletal History - osteoarthritis Sensory History: Reports: Hx Contacts or Glasses, Hx Macular Degeneration, Hx Hearing Aid - implant on left, Hx Hearing Problem - implant Opthamlomology History: Reports: Hx Contacts or Glasses, Hx Macular Degeneration Neurological History: Reports: Hx Transient Ischemic Attacks (TIA), Other Neuro Impairments/Disorders - neuropathy - Surgical History Surgery Procedure, Year, and Place: PACEMAKER, CORONARY STENTS - Immunization History Date of Tetanus Vaccine: utd Date of Influenza Vaccine: utd Infectious Disease History: Unable to Obtain/Confirm Infectious Disease History: Denies: Traveled Outside the [place] in Last 30 Days - Family History Known Family History: Positive: Cardiac Disease - Hx CAD <55 in two older brothers, Hypertension, Other - HLD - Social History Alcohol Use: None Hx Substance Use: No Substance Use Type: Reports: None Smoking Status (MU): Former Smoker Review of Systems Negative: Fever Negative: Chest Pain Positive: Shortness Of Breath. Negative: Cough Positive: Other - increasing abdominal girth All Other Systems Reviewed And Are Negative: Yes Physical Exam - Summary Physical Exam Summary: VITAL SIGNS: Reviewed. GENERAL: Patient is an elderly and nourished male who is lying comfortable in the stretcher. Patient is not in any acute respiratory distress. HEAD AND FACE: No signs of trauma. No ecchymosis, hematomas or skull depressions. No sinus tenderness. EYES: PERRLA, EOMI x 2, No injected conjunctiva, no nystagmus. EARS: Hearing decreased. Ear canals and tympanic membranes are within normal limits. MOUTH: Oropharynx within normal limits. NECK: Supple, trachea is midline, no adenopathy, no JVD, no carotid bruit, no c- spine tenderness, neck with full ROM. CHEST: Symmetric, no tenderness at palpation LUNGS: Clear to auscultation bilaterally. No wheezing. Bilateral crackle in both bases . CVS: Regular rate and rhythm, S1 and S2 present, no murmurs or gallops appreciated. ABDOMEN: Soft, non-tender. Abdomen distended. Increasing abdominal girth. No rebound no guarding, and no masses palpated. Bowel sounds are normal. EXTREMITIES: FROM in all major joints, no cyanosis or clubbing. 2+ edema in bilateral LE. NEURO: Alert and oriented x 3. No acute neurological deficits. Speech is normal and follows commands. SKIN: Dry and warm Triage Information Reviewed: Yes Vital Signs On Initial Exam: Initial Vitals Temp Pulse Resp BP Pulse Ox 96.9 F 80 18 97/64 99 12/20/16 12:57 12/20/16 12:57 12/20/16 12:57 12/20/16 12:57 12/20/16 12:57 Vital Signs Reviewed: Yes Diagnostics - Vital Signs Vital Signs Temp Pulse Resp BP Pulse Ox 12/20/16 12:57 96.9 F 80 18 97/64 99 - Laboratory Lab Results: Lab Results 12/20/16 12/20/16 12/20/16 Range/Units 13:26 13:26 13:26 WBC 9.2 (3.5-10.8) 10^3/ul RBC 3.98 L (4.0-5.4) 10^6/ul Hgb 12.3 L (14.0-18.0) g/dl Hct 37 L (42-52) % MCV 94 (80-94) fL MCH 31 (27-31) pg MCHC 33 (31-36) g/dl RDW 14 (10.5-15) % Plt Count 224 (150-450) 10^3/ul MPV 8 (7.4-10.4) um3 Neut % (Auto) 73.5 (38-83) % Lymph % (Auto) 11.8 L (25-47) % Luce % (Auto) 9.9 H (1-9) % Eos % (Auto) 4.2 (0-6) % Baso % (Auto) 0.6 (0-2) % Absolute Neuts (auto) 6.7 (1.5-7.7) 10^3/ul Absolute Lymphs (auto) 1.1 (1.0-4.8) 10^3/ul Absolute Monos (auto) 0.9 H (0-0.8) 10^3/ul Absolute Eos (auto) 0.4 (0-0.6) 10^3/ul Absolute Basos (auto) 0.1 (0-0.2) 10^3/ul Absolute Nucleated RBC 0 10^3/ul Nucleated RBC % 0 Sodium 131 L (133-145) mmol/L Potassium 4.2 (3.5-5.0) mmol/L Chloride 97 L (101-111) mmol/L Carbon Dioxide 26 (22-32) mmol/L Anion Gap 8 (2-11) mmol/L BUN 29 H (6-24) mg/dL Creatinine 2.20 H (0.67-1.17) mg/dL Est GFR ( Amer) 36.4 (>60) Est GFR (Non-Af Amer) 28.3 (>60) BUN/Creatinine Ratio 13.2 (8-20) Glucose 124 H (70-100) mg/dL Lactic Acid 1.9 (0.5-2.0) mmol/L Calcium 8.9 (8.6-10.3) mg/dL Total Bilirubin 0.80 (0.2-1.0) mg/dL AST 7 L (13-39) U/L ALT 6 L (7-52) U/L Alkaline Phosphatase 52 (34-104) U/L Total Creatine Kinase 31 (10-223) U/L CK-MB (CK-2) 2.9 (0.6-6.3) ng/mL Troponin I 0.03 (<0.04) ng/mL C-Reactive Protein 6.68 H (< 5.00) mg/L B-Natriuretic Peptide ( - 100) pg/mL Total Protein 6.7 (6.4-8.9) g/dL Albumin 3.6 (3.2-5.2) g/dL Globulin 3.1 (2-4) g/dL Albumin/Globulin Ratio 1.2 (1-3) 12/20/16 Range/Units 13:26 WBC (3.5-10.8) 10^3/ul RBC (4.0-5.4) 10^6/ul Hgb (14.0-18.0) g/dl Hct (42-52) % MCV (80-94) fL MCH (27-31) pg MCHC (31-36) g/dl RDW (10.5-15) % Plt Count (150-450) 10^3/ul MPV (7.4-10.4) um3 Neut % (Auto) (38-83) % Lymph % (Auto) (25-47) % Luce % (Auto) (1-9) % Eos % (Auto) (0-6) % Baso % (Auto) (0-2) % Absolute Neuts (auto) (1.5-7.7) 10^3/ul Absolute Lymphs (auto) (1.0-4.8) 10^3/ul Absolute Monos (auto) (0-0.8) 10^3/ul Absolute Eos (auto) (0-0.6) 10^3/ul Absolute Basos (auto) (0-0.2) 10^3/ul Absolute Nucleated RBC 10^3/ul Nucleated RBC % Sodium (133-145) mmol/L Potassium (3.5-5.0) mmol/L Chloride (101-111) mmol/L Carbon Dioxide (22-32) mmol/L Anion Gap (2-11) mmol/L BUN (6-24) mg/dL Creatinine (0.67-1.17) mg/dL Est GFR ( Amer) (>60) Est GFR (Non-Af Amer) (>60) BUN/Creatinine Ratio (8-20) Glucose (70-100) mg/dL Lactic Acid (0.5-2.0) mmol/L Calcium (8.6-10.3) mg/dL Total Bilirubin (0.2-1.0) mg/dL AST (13-39) U/L ALT (7-52) U/L Alkaline Phosphatase (34-104) U/L Total Creatine Kinase (10-223) U/L CK-MB (CK-2) (0.6-6.3) ng/mL Troponin I (<0.04) ng/mL C-Reactive Protein (< 5.00) mg/L B-Natriuretic Peptide 621 H ( - 100) pg/mL Total Protein (6.4-8.9) g/dL Albumin (3.2-5.2) g/dL Globulin (2-4) g/dL Albumin/Globulin Ratio (1-3) Result Diagrams: 12/20/16 13:26 12/20/16 13:26 Lab Statement: Any lab studies that have been ordered have been reviewed, and results considered in the medical decision making process. - Radiology CXR Radiology Interpretation Completed By: Radiologist - Cardiomegaly with interstitial edema consistent with CHF. ED physician has reviewed this radiology report and agrees. - EKG 1308 Cardiac Rate: NL - BPM 80 EKG Rhythm: Atrial Flutter EKG Interpretation: Atrial flutter with a ventricular paced rhythm. EKG Comparison: No Significant Change - 12/08/16 - Additional Comments Diagnostic Additional Comments: Abdomen US reveals, per radiologist, No evidence of ascites is noted. ED physician has reviewed this radiology report and agrees. Course/Dx - Course Assessment/Plan: This patient is an 89 year old M presenting to [facility] by ambulance with a chief complaint of SOB since a few weeks ago, worse since today. The patient rates the pain 0/10 in severity. Symptoms aggravated by nothing. Symptoms alleviated by nothing. Patient reports increasing abdominal girth. Patient denies fever, cough, and CP. An EKG reveals atrial flutter with a ventricular paced rhythm. CXR reveals Cardiomegaly with interstitial edema consistent with CHF. ED physician has reviewed this radiology report and agrees. Test results with no significant abnormalities except for mild anemia, sodium of 131, BUN 29, and creatinine of 2.2 which consistent with acute on chronic renal failure. BNP of 621, consistent with CHF exacerbation. In the ED course, not able to give Lasix due to low blood pressure. Because of increased abdominal girth, I decided to do an abdomen US to rule out ascites. Abdomen US reveals, per radiologist, No evidence of ascites is noted. ED physician has reviewed this radiology report and agrees. At this time I consulted Dr. Trammell (hospitalist) at 1500 who agrees to admit. The patient is hemodynamically stable , alert and oriented x3. - Diagnoses Differential Diagnosis/HQI/PQRI: Positive: Bronchitis, CHF, COPD Exacerbation, Pneumonia, Pulmonary Edema Provider Diagnoses: CHF exacerbation, Acute on chronic renal failure - Physician Notifications Discussed Care of Patient With: Gunnar Trammell Time Discussed With Above Provider: 15:00 Instructed by Provider To: Other - Consulted Dr. Trammell (hospitalist) at 1500 who agrees to admit. Discharge - Discharge Plan Condition: Stable Disposition: ADMITTED TO [facility] documentation as recorded by the Sabino elliott Alfonso accurately reflects the service I personally performed and the decisions made by me, Abimael Mora MD.
[2016-12-20] MEDS: Mometasone/Formoter 200/5 MDI INH SCH (20:24)
--- NOTE | 2016-12-20 21:25 | HP ---
CC: Dr. Yoon; Dr. Mars, Cardiology* HISTORY AND PHYSICAL: DATE OF ADMISSION: 12/20/16 PRIMARY CARE PHYSICIAN: Dr. Yoon. CHIEF COMPLAINT: Shortness of breath, abdominal distention. HISTORY OF PRESENT ILLNESS: Mr. Jacobs is a pleasant 89-year-old man with a past medical history of hypertension, hyperlipidemia, CAD, status post CABG, systolic CHF, wjzppelx-[id number] aortic stenosis, iqcrckfb-[id number] mitral regurgitation, hypothyroidism, BPH, CKD 3, TRISHA, on CPAP, who presents to the hospital with worsening shortness of breath, weight gain, and abdominal distention along with lower extremity edema. The patient was recently hospitalized at [facility] from 12/06/16 to 12/09/16 for CHF exacerbation. He was treated with IV diuretics and had a significant weight loss while here. Apparently, since he was discharged back to [facility], his weight has been slowly increasing and his lower extremity edema and shortness of breath have been worsening. He has been compliant with his medications; however, it seems that he occasionally will have some salty foods in his diet including a breast fast sausage occasionally in the morning or some tomato juice. His daughter states otherwise his appetite has not been very good. Due to this increasing weight gain, he saw his PCP last 12/16/16, who increased his torsemide from once daily to twice daily; however, this did not seem to result in any increased urine output and due to his progressive weight gain symptoms. [facility] felt he should come to the hospital to be evaluated further. He denies any chest pain, palpitations, has had a dry cough. He states he is starting to become tired of coming back to the hospital so frequently. PAST MEDICAL HISTORY: CAD, systolic CHF, COPD, GERD, hyperlipidemia, BPH, hypertension, hypothyroidism, history of CVA, AFib, TRISHA, on CPAP, cochlear implant. PAST SURGICAL HISTORY: CABG, PCI, lap ismael, pacemaker placement. ALLERGIES: Allergies to CLARITHROMYCIN and SPIRONOLACTONE. FAMILY HISTORY: Significant for mother with an TN, father with cirrhosis. SOCIAL HISTORY: The patient is a resident at [facility]. No tobacco abuse, occasional alcohol use, no illicit drug use. REVIEW OF SYSTEMS: A 12-point review of systems negative except for that is noted in the HPI. PHYSICAL EXAMINATION GENERAL: The patient is an elderly male, lying in bed, in no apparent distress. VITAL SIGNS: On admission, temperature 96.9, heart rate of 80, respiratory rate of 18, O2 saturation of 99% on 1 L, blood pressure is 97/64. HEENT: Head is normocephalic, atraumatic. Cochlear implant in place. Eyes: Pupils are equal, round and reactive to light and accommodation. Anicteric sclerae. Moist mucous membranes. No cervical adenopathy. LUNGS: With bilateral rales in the lower lung hopper. CARDIOVASCULAR: Regular rate and rhythm, S1 and S2 present. Systolic ejection murmur. ABDOMEN: Slightly distended, soft, nontender. Bowel sounds hyperactive EXTREMITIES: The patient with bilateral lower extremity pitting edema at least to the thighs. NEURO: The patient is alert, oriented x3. Some hearing impairment. No focal neurological deficits. LABS AND DIAGNOSTICS: White blood cell count of 9.2, hematocrit of 37, platelets of 224. Sodium 131, potassium 4.2, chloride of 97, CO2 of 26, BUN 29 , creatinine of 2.2, glucose of 104. Lactate of 1.7, AST of 7, ALT of 6, troponin 0.03, CRP of 6. B-natriuretic peptide is 621, up from 350 last admission. Chest x-ray personally reviewed shows interstitial edema. EKG, personally reviewed, shows AFib with a V-paced rhythm. Abdominal ultrasound ordered and pending. ASSESSMENT AND PLAN: Acute on chronic systolic congestive heart failure exacerbation in an 89-year-old man with complicated cardiac and medical history. 1. Acute on chronic systolic congestive heart failure exacerbation. The patient has not received any Lasix in the emergency department. We will give him 60 mg IV x1 and we will evaluate his urine output overnight tonight. We will hold the patient's Imdur to give some little more blood pressure to work with. His last echo showed an EF of 35% to 40% and cooohbyz-fh-frwuwj aortic stenosis and mitral regurgitation. He is up 5 kg since discharge. The patient is agreeable to a palliative care consult, which was discussed with him and his daughter, who is present. We will monitor the patient on telemetry. 2. Hypertension. Continue home medications aside from Imdur which we will hold for the time being. 3. Atrial fibrillation. Continue home apixaban and metoprolol. 4. Gastroesophageal reflux disease. Continue PPI. 5. Chronic kidney disease. The patient's creatinine is up from last admission ; however, he does certainly require some diuresis. We will recheck a BMP in the morning. 6. Hypothyroidism. Continue home Synthroid. 7. Obstructive sleep apnea. Continue CPAP q.h.s. 8. Chronic obstructive pulmonary disease. Continue Dulera and p.r.n. albuterol. 9. DVT prophylaxis. The patient is on apixaban. 10. Code status. The patient is a do no resuscitate. TIME SPENT: Total time spent on this admission is 50 minutes with over half the time spent on face to face with the patient in counseling and coordinating care. [id number]/[facility] #: [id number] AGUSTIN
[2016-12-20] MEDS: Atorvastatin* 10 MG TAB PO SCH (21:48)
[2016-12-20] MEDS: Tamsulosin CAP* 0.4 MG PO SCH (21:48)
[2016-12-20] MEDS: Metoprolol Tartrate TAB* 50 mg PO SCH (21:48)
[2016-12-20] MEDS: Apixaban* 2.5 MG TAB PO SCH (21:48)
[2016-12-21 04:36] LABS: Urine Bilirubin Negative (Negative); Urine Glucose Negative (Negative); Urine Nitrite Negative (Negative)
[2016-12-21] MEDS: Levothyroxine TAB* 137 MCG TAB PO SCH (05:54)
[2016-12-21] MEDS: Potassium Chlor TAB* 20 MEQ TAB.ER PO SCH (08:27)
[2016-12-21] MEDS: CMC:Epleronone (NF) 25 MG TAB PO SCH (08:27)
[2016-12-21] MEDS: Omeprazole CAP* 20 MG PO SCH (08:27)
[2016-12-21] MEDS: Metoprolol Tartrate TAB* 50 mg PO SCH ×2 (08:27→20:54)
[2016-12-21] MEDS: Apixaban* 2.5 MG TAB PO SCH ×2 (08:27→20:53)
[2016-12-21] MEDS: Mometasone/Formoter 200/5 MDI INH SCH ×2 (08:55→21:01)
--- NOTE | 2016-12-21 11:38 | PN ---
Subjective Date of Service: 12/21/16 Interval History: Pt states last night he was feeling better than when he presented to the ER. He states his breathing has since worsened again this AM. His family thinks his nerves are leading to much of his SOB. He thinks his LE swelling is about the same as usual. Objective Active Medications: Acetaminophen (Tylenol Tab*) 650 mg PO Q4H PRN PRN Reason: FEVER/PAIN Albuterol (Ventolin Hfa Inhaler*) 1 puff INH Q4H PRN PRN Reason: WHEEZING Last Admin: 12/21/16 08:53 Dose: 1 puff Apixaban (Eliquis) 2.5 mg PO BID [facility] Last Admin: 12/21/16 08:27 Dose: 2.5 mg Atorvastatin Calcium (Lipitor*) 10 mg PO BEDTIME [facility] Last Admin: 12/20/16 21:48 Dose: 10 mg Eplerenone (Inspra (Nf)) 50 mg PO DAILY [facility] Last Admin: 12/21/16 08:27 Dose: 50 mg Levothyroxine Sodium (Synthroid Tab*) 137 mcg PO MoTuWeThFrSa@0600 [facility] Last Admin: 12/21/16 05:54 Dose: 137 mcg Levothyroxine Sodium (Synthroid Tab*) 68.5 mcg PO Seymour@0600 [facility] Metoprolol Tartrate (Lopressor Tab*) 75 mg PO BID [facility] Last Admin: 12/21/16 08:27 Dose: 75 mg Mometasone Furoate/Formoterol Fumar (Dulera 200/5 Mdi*) 1 puff INH BID [facility] PRN Reason: Protocol Last Admin: 12/21/16 08:55 Dose: 1 puff Omeprazole (Prilosec Cap*) 20 mg PO DAILY [facility] Last Admin: 12/21/16 08:27 Dose: 20 mg Potassium Chloride (Klor Con Er Tab*) 20 meq PO DAILY [facility] Last Admin: 12/21/16 08:27 Dose: 20 meq Tamsulosin HCl (Flomax Cap*) 0.4 mg PO BEDTIME [facility] Last Admin: 12/20/16 21:48 Dose: 0.4 mg Vital Signs 12/20/16 12/20/16 12/20/16 16:00 16:16 16:30 Temperature Pulse Rate 80 77 80 Respiratory 19 25 24 Rate Blood Pressure 115/82 130/77 (mmHg) O2 Sat by Pulse 96 93 95 Oximetry 12/20/16 12/20/16 12/20/16 17:32 20:00 20:28 Temperature 98.3 F Pulse Rate 80 80 Respiratory 20 18 18 Rate Blood Pressure 113/72 (mmHg) O2 Sat by Pulse 98 98 Oximetry 12/20/16 12/21/16 12/21/16 20:44 00:19 04:01 Temperature 98.1 F 97.9 F 98.4 F Pulse Rate 61 79 82 Respiratory 18 20 20 Rate Blood Pressure 102/56 98/62 99/68 (mmHg) O2 Sat by Pulse 97 93 94 Oximetry 12/21/16 12/21/16 07:16 08:00 Temperature 98.5 F Pulse Rate 79 Respiratory 18 16 Rate Blood Pressure 103/67 (mmHg) O2 Sat by Pulse 94 Oximetry Oxygen Devices in Use Now: None Appearance: Elderly male sitting up in bed, NAD Eyes: No Scleral Icterus Ears/Nose/Mouth/Throat: Mucous Membranes Moist Respiratory: Symmetrical Chest Expansion and Respiratory Effort, - - pt has fine crackles anteriorly and at the R base Cardiovascular: NL Sounds; No Murmurs; No JVD, RRR, - - 1-2+ B/L LE edema Abdominal: NL Sounds; No Tenderness; No Distention Extremities: No Clubbing, Cyanosis Skin: No Rash or Ulcers, No Nodules or Sclerosis, - - dry skin of legs, mild chronic venous stasis changes to B/L LE Neurological: Alert and Oriented x 3 Result Diagrams: 12/20/16 13:26 12/20/16 13:26 Additional Lab and Data: Lab Results 12/20/16 12/20/16 12/20/16 Range/Units 13:26 13:26 13:26 WBC 9.2 (3.5-10.8) 10^3/ul RBC 3.98 L (4.0-5.4) 10^6/ul Hgb 12.3 L (14.0-18.0) g/dl Hct 37 L (42-52) % MCV 94 (80-94) fL MCH 31 (27-31) pg MCHC 33 (31-36) g/dl RDW 14 (10.5-15) % Plt Count 224 (150-450) 10^3/ul MPV 8 (7.4-10.4) um3 Neut % (Auto) 73.5 (38-83) % Lymph % (Auto) 11.8 L (25-47) % Columbia % (Auto) 9.9 H (1-9) % Eos % (Auto) 4.2 (0-6) % Baso % (Auto) 0.6 (0-2) % Absolute Neuts (auto) 6.7 (1.5-7.7) 10^3/ul Absolute Lymphs (auto) 1.1 (1.0-4.8) 10^3/ul Absolute Monos (auto) 0.9 H (0-0.8) 10^3/ul Absolute Eos (auto) 0.4 (0-0.6) 10^3/ul Absolute Basos (auto) 0.1 (0-0.2) 10^3/ul Absolute Nucleated RBC 0 10^3/ul Nucleated RBC % 0 Sodium 131 L (133-145) mmol/L Potassium 4.2 (3.5-5.0) mmol/L Chloride 97 L (101-111) mmol/L Carbon Dioxide 26 (22-32) mmol/L Anion Gap 8 (2-11) mmol/L BUN 29 H (6-24) mg/dL Creatinine 2.20 H (0.67-1.17) mg/dL Est GFR ( Amer) 36.4 (>60) Est GFR (Non-Af Amer) 28.3 (>60) BUN/Creatinine Ratio 13.2 (8-20) Glucose 124 H (70-100) mg/dL Lactic Acid 1.9 (0.5-2.0) mmol/L Calcium 8.9 (8.6-10.3) mg/dL Total Bilirubin 0.80 (0.2-1.0) mg/dL AST 7 L (13-39) U/L ALT 6 L (7-52) U/L Alkaline Phosphatase 52 (34-104) U/L Total Creatine Kinase 31 (10-223) U/L CK-MB (CK-2) 2.9 (0.6-6.3) ng/mL Troponin I 0.03 (<0.04) ng/mL C-Reactive Protein 6.68 H (< 5.00) mg/L B-Natriuretic Peptide ( - 100) pg/mL Total Protein 6.7 (6.4-8.9) g/dL Albumin 3.6 (3.2-5.2) g/dL Globulin 3.1 (2-4) g/dL Albumin/Globulin Ratio 1.2 (1-3) // Range/Units 13:26 WBC (3.5-10.8) 10^3/ul RBC (4.0-5.4) 10^6/ul Hgb (14.0-18.0) g/dl Hct (42-52) % MCV (80-94) fL MCH (27-31) pg MCHC (31-36) g/dl RDW (10.5-15) % Plt Count (150-450) 10^3/ul MPV (7.4-10.4) um3 Neut % (Auto) (38-83) % Lymph % (Auto) (25-47) % Columbia % (Auto) (1-9) % Eos % (Auto) (0-6) % Baso % (Auto) (0-2) % Absolute Neuts (auto) (1.5-7.7) 10^3/ul Absolute Lymphs (auto) (1.0-4.8) 10^3/ul Absolute Monos (auto) (0-0.8) 10^3/ul Absolute Eos (auto) (0-0.6) 10^3/ul Absolute Basos (auto) (0-0.2) 10^3/ul Absolute Nucleated RBC 10^3/ul Nucleated RBC % Sodium (133-145) mmol/L Potassium (3.5-5.0) mmol/L Chloride (101-111) mmol/L Carbon Dioxide (22-32) mmol/L Anion Gap (2-11) mmol/L BUN (6-24) mg/dL Creatinine (0.67-1.17) mg/dL Est GFR ( Amer) (>60) Est GFR (Non-Af Amer) (>60) BUN/Creatinine Ratio (8-20) Glucose (70-100) mg/dL Lactic Acid (0.5-2.0) mmol/L Calcium (8.6-10.3) mg/dL Total Bilirubin (0.2-1.0) mg/dL AST (13-39) U/L ALT (7-52) U/L Alkaline Phosphatase (34-104) U/L Total Creatine Kinase (10-223) U/L CK-MB (CK-2) (0.6-6.3) ng/mL Troponin I (<0.04) ng/mL C-Reactive Protein (< 5.00) mg/L B-Natriuretic Peptide 621 H ( - 100) pg/mL Total Protein (6.4-8.9) g/dL Albumin (3.2-5.2) g/dL Globulin (2-4) g/dL Albumin/Globulin Ratio (1-3) Assess/Plan/Problems-Billing Mr Jacobs is an 89 yo M who has a h/o moderate to severe , 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 - Patient Problems (1) Acute on chronic systolic CHF (congestive heart failure) Current Visit: Yes Status: Acute Code(s): I50.23 - ACUTE ON CHRONIC SYSTOLIC (CONGESTIVE) HEART FAILURE SNOMED Code(s): 229904980 Comment: The patient has acute on chronic systolic CHF. He has baseline LE edema but he believes this has worsened since his last hospitalization. Additionally he has increased SOB from his baseline. His PCP increased his torsemide to BID and despite this he feels his symptoms have worsened. He received lasix 60mg IV x1 yesterday. His creatinine has worsened since his last hospitalization so I am concerned that after the IV lasix yesterday his creatinine will likely be worse. He will be redosed this afternoon after his labs come back. Palliative care consult pending. Will also trial low dose klonopin for anxiety as both the patient and his daughter feel that his anxiety is playing a large role in his c/o SOB. (2) CKD (chronic kidney disease) stage 3, GFR 30-59 ml/min Current Visit: Yes Status: Chronic Code(s): N18.3 - CHRONIC KIDNEY DISEASE, STAGE 3 (MODERATE) SNOMED Code(s): 530969554 Comment: The patient has baseline stage III CKD with a baseline creatinine around 1.5-1.6. His creatinine was worsened on admission yesterday to 2.2- repeat labs pending for today. Will need to cautiously dose IV lasix. I discussed with the patient and his family that he is getting to a difficult place where treating his heart failure will be at the expense of his kidneys. (3) CAD (coronary artery disease) Current Visit: Yes Status: Chronic Code(s): I25.10 - ATHSCL HEART DISEASE OF [place] CORONARY ARTERY W/O ANG PCTRS SNOMED Code(s): 62685502 Comment: No complaints at this time. Continue metoprolol, statin and imdur. (4) COPD (chronic obstructive pulmonary disease) Current Visit: Yes Status: Chronic Code(s): J44.9 - CHRONIC OBSTRUCTIVE PULMONARY DISEASE, UNSPECIFIED SNOMED Code(s): 28903973 Comment: No signs of exacerbation. Continue albuterol prn and dulera. (5) TRISHA on CPAP Current Visit: Yes Status: Chronic Code(s): G47.33 - OBSTRUCTIVE SLEEP APNEA (ADULT) (PEDIATRIC); Z99.89 - DEPENDENCE ON OTHER ENABLING MACHINES AND DEVICES SNOMED Code(s): 73513080 Comment: Continue CPAP with sleep. (6) Hypothyroidism Current Visit: Yes Status: Chronic Code(s): E03.9 - HYPOTHYROIDISM, UNSPECIFIED SNOMED Code(s): 72353264 Comment: Continue current dose of levothyroxine. Last TSH yesterday and within acceptable range. (7) GERD (gastroesophageal reflux disease) Current Visit: Yes Status: Chronic Code(s): K21.9 - GASTRO-ESOPHAGEAL REFLUX DISEASE WITHOUT ESOPHAGITIS SNOMED Code(s): 596006482 Comment: Continue omeprazole. (8) BPH (benign prostatic hyperplasia) Current Visit: Yes Status: Chronic Code(s): N40.0 - BENIGN PROSTATIC HYPERPLASIA WITHOUT LOWER URINRY TRACT SYMP SNOMED Code(s): 333749288 Comment: Continue tamsulosin. (9) DVT prophylaxis Current Visit: Yes Status: Acute Code(s): GGW1788 - SNOMED Code(s): 328485080 Comment: Ramirez (10) DNR (do not resuscitate) Current Visit: Yes Status: Chronic
[2016-12-21 12:33] LABS: BUN/Creatinine Ratio 12.7 (8-20); Calcium 8.9 mg/dL (8.6-10.3); EGFR African American 39.5 (>60); EGFR Non-African American 30.7 (>60); Potassium 3.4 mmol/L (3.5-5.0)
[2016-12-21] MEDS: clonazePAM TAB(*) 0.5 MG PO PRN ×2 (12:44→21:37)
--- NOTE | 2016-12-21 15:32 | CONS ---
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 The patient was also admitted earlier in June for another acute decompensated congestive heart failure event. The patient recently relocated to this area to be closer to family and is now residing at [facility]. He is doing well there. He has a very good quality of life and an active lifestyle; however, there has been a lot of concern for the second admission this month and decline with his respiratory status. He presented to the emergency room on 12/20/16 for shortness of breath and abdominal distention. I spoke with the daughter outside the room and she states the patient has a lot of anxiety, called his entire family stating that he was not going to make it and that he was going to in the hospital and that he gets very over the top with his anxiety and shortness of breath and he is also very high needs at [facility]. On arrival to the emergency room, the patient was admitted and diuresed aggressively and palliative care consult was placed to discuss goals of care. On my encounter, the patient is present with his daughter, Deborah, who is his healthcare proxy. He states he does feel a lot better. He is still having conversational dyspnea. They would like to get him back at [facility] enjoying his social life and quality of life and trying to limit the amount of readmissions that he is having. They are limited based on some of the services that [facility] can provide including placing compression stockings on and we spoke about if he continues to deteriorate medically that he may no longer benefit from staying at [facility]. He is wheelchair bound; however, he does independently transfer to the bed and to the bathroom. He is getting out often to restaurants and to [employer] and enjoying glasses of wine on occasion. I did speak with the patient regarding his current MOLST status, which is a DNR and trial intubation. We reviewed this at length and he does not want to be intubated and does not want to be resuscitated. We will do a new MOLST form to reflect this. We also talked about getting his anxiety under better control, which may help trigger further visits to the emergency room. PAST MEDICAL HISTORY: 1. History of CAD status post bypass in 2002 with multiple stents. The patient is followed by Dr. Mars from [place]. 2. History of ischemic cardiomyopathy with ejection fraction of 35% to 40%. 3. Moderate to severe . 4. Moderate to severe MR. 5. Mild to moderate pulmonary hypertension. 6. COPD, on room air. 7. CKD. 8. Osteoarthritis. 9. GERD. 10. Hyperlipidemia. 11. Chronic lymphedema. 12. BPH. 13. Obstructive sleep apnea, on CPAP. 14. Hard of hearing with hearing aids. 15. Hypertension. 16. Hypothyroidism. 17. Obesity. 18. Neuropathy. PAST SURGICAL HISTORY: History of pacemaker placed and a coronary artery bypass graft in 2012. INPATIENT MEDICATIONS: 1. Tylenol 650 mg every 4 hours as needed. 2. Albuterol 1 puff every 4 hours as needed. 3. Eliquis 2.5 mg p.o. b.i.d. 4. Atorvastatin 10 mg p.o. at bedtime. 5. Eplerenone 50 mg p.o. daily. 6. Levothyroxine 137 mcg Wednesday, Wednesday, Wednesday, , Wednesday, Wednesday. 7. Levothyroxine 68.5 mcg p.o. daily. 8. Metoprolol tartrate 75 mg p.o. b.i.d. 9. Mometasone and formoterol 1 puff inhale b.i.d. 10. Omeprazole 20 mg daily. 11. Potassium chloride 20 mEq daily. 12. Tamsulosin 0.4 mg at bedtime. 13. Clonazepam 0.5 mg p.o. b.i.d. as needed. ALLERGIES: CLARITHROMYCIN, SPIRONOLACTONE. FAMILY HISTORY: Mother in her 70s from an [place]. Father from alcohol complications. SOCIAL HISTORY: As mentioned, the patient resides at [facility]. He is a remote smoker. He has a 05-paox-odok history, quit in 1966. He does drink wine on occasion. No illicit drug use. 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 His healthcare proxy is his daughter, Deborah , phone number is [phone]. MOLST form modified and updated to DNR/DNI. REVIEW OF SYSTEMS: A 14-point review of systems is as mentioned in the HPI. Pertinent positives and negatives as mentioned in the HPI, otherwise negative. PHYSICAL EXAM: Vitals: Temp 98.5, pulse rate 83, respiratory rate 16, oxygen saturation 94% on 2 L, blood pressure 103/67. General: No acute distress. Does have conversational dyspnea. His daughter is at the bedside, Deborah. HEENT : Head normocephalic. Pupils equal and reactive, anicteric. Oropharynx: Mucous membranes moist. No erythema or exudate. Neck: Supple. No lymphadenopathy. Cardiac: Harsh systolic murmur, most pronounced at the right sternal base. Regular rate and rhythm. Respiratory: Diminished breath sounds, bilateral. Bibasilar crackles. Abdomen: Soft, nontender, nondistended. Extremities: +2 pretibial edema. +1 DPs. Neurological: Alert and oriented x3. No focal neurological deficits. LABORATORY DATA: White count 9.2, hemoglobin 12.3, hematocrit 37, platelets 224 ,000. Sodium 131, potassium 4.2, chloride 97, bicarb 26, BUN 29, creatinine 2.20. BNP 621. TSH 0.64. RADIOGRAPHIC DATA: Chest x-ray: Cardiomegaly with interstitial edema, consistent with CHF. Abdominal ultrasound shows no evidence of ascites as noted. ASSESSMENT/PLAN: This is an 89-year-old male with a past medical history of ischemic cardiomyopathy, moderate to severe aortic stenosis, and chronic obstructive pulmonary disease who presents to the emergency room for the second time this month with acute decompensated heart failure and worsening renal failure. The patient is not eligible for hospice at this time. He is eligible for the path referral program and outpatient palliative care program. We discussed at length his MOLST form and he does wish to be a do not intubate. We discussed getting his anxiety under better control with a possibility of something such as Lexapro and also getting his nitro sublingual tablets in place as well for any twinges of chest pain that he may experience. If his respiratory status does decline, he may benefit from the short-acting morphine as needed for increased work of breathing. It is important for him to get continued followup with his photographer motion picture, Dr. Mars. There is discussion of possibly a surgery for his aortic valve, which should be discussed with his photographer motion picture. Thank you for this consultation. TIME SPENT: Greater than 70 minutes was spent doing this consultation, more than half the time spent in direct patient contact. [id number]/CPS #: [id number] AGUSTIN
[2016-12-21] MEDS ORDERED: Furosemide IV* 10 MG/ML 10 ML VIAL (100 MG) IV ONE (16:00)
[2016-12-21] MEDS: Atorvastatin* 10 MG TAB PO SCH (20:53)
[2016-12-21] MEDS: Tamsulosin CAP* 0.4 MG PO SCH (20:54)
[2016-12-22] MEDS: Levothyroxine TAB* 137 MCG TAB PO SCH (07:26)
[2016-12-22] MEDS: Mometasone/Formoter 200/5 MDI INH SCH ×2 (08:35→19:49)
--- NOTE | 2016-12-22 08:48 | PN ---
Subjective Date of Service: 12/22/16 Interval History: Patient seen and examined at bedside. Patient states his breathing has improved since his admission. He does states he has a feeling the "end is near. " Transfers out of bed with assistance. Only on 2L oxygen. Family History: Unchanged from Admission Social History: Unchanged from Admission Past Medical History: Unchanged from Admission Objective Active Medications: Acetaminophen (Tylenol Tab*) 650 mg PO Q4H PRN Albuterol (Ventolin Hfa Inhaler*) 1 puff INH Q4H PRN Apixaban (Eliquis) 2.5 mg PO BID [facility] Atorvastatin Calcium (Lipitor*) 10 mg PO BEDTIME [facility] Clonazepam (Klonopin Tab(*)) 0.5 mg PO BID PRN Eplerenone (Inspra (Nf)) 50 mg PO DAILY [facility] Levothyroxine Sodium (Synthroid Tab*) 137 mcg PO MoTuWeThFrSa@0600 [facility] Levothyroxine Sodium (Synthroid Tab*) 68.5 mcg PO Seymour@0600 [facility] Metoprolol Tartrate (Lopressor Tab*) 75 mg PO BID [facility] Mometasone Furoate/Formoterol Fumar (Dulera 200/5 Mdi*) 1 puff INH BID [facility] Omeprazole (Prilosec Cap*) 20 mg PO DAILY [facility] Potassium Chloride (Klor Con Er Tab*) 20 meq PO DAILY [facility] Tamsulosin HCl (Flomax Cap*) 0.4 mg PO BEDTIME [facility] Vital Signs 12/21/16 12/21/16 12/21/16 11:37 12:44 14:44 Temperature 97.9 F Pulse Rate 79 Respiratory 18 24 16 Rate Blood Pressure 101/64 (mmHg) O2 Sat by Pulse 97 Oximetry 12/21/16 12/21/16 12/21/16 16:17 20:00 20:04 Temperature 97.3 F 97.9 F Pulse Rate 80 80 Respiratory 18 18 28 Rate Blood Pressure 108/64 116/62 (mmHg) O2 Sat by Pulse 100 98 Oximetry 12/21/16 12/21/16 12/21/16 21:10 21:37 23:37 Temperature Pulse Rate Respiratory 18 18 8 Rate Blood Pressure (mmHg) O2 Sat by Pulse 98 Oximetry 12/22/16 12/22/16 12/22/16 00:43 04:38 07:45 Temperature 97.9 F 99.0 F 98.3 F Pulse Rate 80 81 79 Respiratory 20 20 24 Rate Blood Pressure 103/67 94/77 100/66 (mmHg) O2 Sat by Pulse 93 86 89 Oximetry Oxygen Devices in Use Now: None Appearance: sitting up in chair, NAD Eyes: No Scleral Icterus, PERRLA Neck: NL Appearance and Movements; NL JVP Respiratory: Symmetrical Chest Expansion and Respiratory Effort, - - decreased at bases Cardiovascular: - - 3/6 systolic murmur at RSB; 3+ LE edema Abdominal: NL Sounds; No Tenderness; No Distention Extremities: - - 3+ LE edema Skin: No Rash or Ulcers Neurological: Alert and Oriented x 3 Lines/Tubes/Other Access: Clean, Dry and Intact Peripheral IV Nutrition: Taking PO's Result Diagrams: 12/20/16 13:26 12/23/16 05:32 Assess/Plan/Problems-Billing Mr Jacobs is an 89 yo M who has a h/o moderate to severe , 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 - Patient Problems (1) Acute on chronic systolic CHF (congestive heart failure) Comment: The patient has acute on chronic systolic CHF. He has baseline LE edema but he believes this has worsened since his last hospitalization. Additionally he has increased SOB from his baseline. His PCP increased his torsemide to BID and despite this he feels his symptoms have worsened. He received 60mg IV Lasix 12/20 and 12/21. Will restart home torsemide while awaiting creatinine. Appreciate palliative consult. Currently he is NOT a candidate for hospice. Started low dose klonopin for anxiety as well as morphine to help decrease work of breathing. (2) CKD (chronic kidney disease) stage 3, GFR 30-59 ml/min Comment: The patient has baseline stage III CKD with a baseline creatinine around 1.5-1.6. Creatinine down to 1.9 today. As he already received his torsemide this AM, will give metolazone and 20mg IV Lasix now and recheck BMP in AM. I did discuss that with his worsening renal failure it is becoming more difficult to treat his heart failure. (3) CAD (coronary artery disease) Comment: No complaints at this time. Continue metoprolol and statin (4) COPD (chronic obstructive pulmonary disease) Comment: No signs of exacerbation. Continue albuterol prn and dulera. (5) TRISHA on CPAP Comment: Continue CPAP with sleep. (6) Hypothyroidism Comment: Continue current dose of levothyroxine. (7) GERD (gastroesophageal reflux disease) Comment: Continue omeprazole. (8) BPH (benign prostatic hyperplasia) Comment: Continue tamsulosin. (9) DVT prophylaxis Comment: Ramirez (10) DNR (do not resuscitate)
[2016-12-22] MEDS ORDERED: Torsemide TAB* 20 MG PO SCH (10:00)
[2016-12-22] MEDS: Apixaban* 2.5 MG TAB PO SCH ×2 (10:18→21:15)
[2016-12-22] MEDS: Omeprazole CAP* 20 MG PO SCH (10:19)
[2016-12-22] MEDS: Potassium Chlor TAB* 20 MEQ TAB.ER PO SCH ×3 (10:19→16:49)
[2016-12-22] MEDS: CMC:Epleronone (NF) 25 MG TAB PO SCH (10:20)
[2016-12-22] MEDS: Metoprolol Tartrate TAB* 50 mg PO SCH ×2 (10:21→21:05)
[2016-12-22] MEDS: clonazePAM TAB(*) 0.5 MG PO PRN (10:22)
[2016-12-22 11:08] LABS: BUN/Creatinine Ratio 13.5 (8-20); Calcium 8.7 mg/dL (8.6-10.3); EGFR African American 42.4 (>60); EGFR Non-African American 32.9 (>60); Potassium 3.3 mmol/L (3.5-5.0)
[2016-12-22] MEDS ORDERED: Metolazone TAB* 5 MG PO ONE (11:27)
[2016-12-22] MEDS ORDERED: Furosemide IV* 10 MG/ML 2 ML VIAL (20 MG) IV ONE (11:27)
[2016-12-22] MEDS ORDERED: clonazePAM TAB(*) 0.5 MG PO ONE (14:49)
[2016-12-22 16:49] LABS: FIO2 2
[2016-12-22 16:52] LABS: PCO2 Arterial 39 mmHg (35-45)
--- NOTE | 2016-12-22 17:56 | PN ---
Hospitalist Progress Note Hospitalist Addendum: Asked to evaluate the patient for increasing lethargy. Patient also telling nurse "this is the end!' He has been texting his daughter the same On exam: HR 70s, RR 30s, sat 92% on 4L Accessory muscle use visible; Crackles at bases He received 20mg of Demadex, followed by 5mg of Metolazone with 20mg IV Lasix. Minimal urine output with this. Given his hx of COPD and lethargy ,ABG drawn which shows hypoxia with normal Co2. Suspect this is all from heart failure. Limited in terms of interventions given low BP, moderate to severe , rising creatinine. Plan to move to the ICU for vapotherm to help decrease the work of breathing and help him rest for the night. Will re-dose diuretics based on renal function in AM. Added low dose oral morphine for air hunger. Patient is a DNR/ DNI. Depending on response will revisit goals of care with patient and daughter in the morning. Discussed current situation with patient's daughter who is on her way to the hospital. Reena Chiang NP
[2016-12-22] MEDS: Atorvastatin* 10 MG TAB PO SCH (21:05)
[2016-12-22] MEDS: Tamsulosin CAP* 0.4 MG PO SCH (21:05)
[2016-12-23] MEDS: Levothyroxine TAB* 137 MCG TAB PO SCH (05:57)
[2016-12-23 06:08] LABS: BUN/Creatinine Ratio 14.9 (8-20); Calcium 8.8 mg/dL (8.6-10.3); EGFR African American 40.4 (>60); EGFR Non-African American 31.4 (>60); Potassium 3.2 mmol/L (3.5-5.0)
[2016-12-23] MEDS: Mometasone/Formoter 200/5 MDI INH SCH ×2 (08:10→21:39)
[2016-12-23] MEDS: CMC:Epleronone (NF) 25 MG TAB PO SCH (09:55)
[2016-12-23] MEDS: Omeprazole CAP* 20 MG PO SCH (09:55)
[2016-12-23] MEDS: Potassium Chlor TAB* 20 MEQ TAB.ER PO SCH ×3 (09:55→18:31)
[2016-12-23] MEDS: Apixaban* 2.5 MG TAB PO SCH ×2 (09:56→21:04)
[2016-12-23] MEDS: Metoprolol Tartrate TAB* 50 mg PO SCH ×2 (09:56→21:03)
[2016-12-23] MEDS: Torsemide TAB* 20 MG PO SCH ×2 (14:16→21:03)
--- NOTE | 2016-12-23 14:28 | PN ---
Progress Note - Progress Note Date of Service: 12/23/16 Note: Palliative care follow up note: Patient conversationally dyspneic. States if its his time to go then he is ready to go. Vapotherm wean attempted earlier, patient clearly more SOB and dyspneic per staff report and placed back on vapotherm. Sounds clear with diminished breath sounds. Patient with COPD, remote smoker and per daughter had scarring on his lungs. Per labs and exam appears dry and possibly pulmonary process driving his increase work of breathing. Order CT scan of chest to assess severity of COPD and if concerning then will re-address hospice eligibility. Concern is that he will have difficulty transitioning off the vapotherm.
[2016-12-23] MEDS: Morphine ORAL.SOLN 10 mg* 2 MG/ML UDC 5 ml PO PRN (15:41)
--- NOTE | 2016-12-23 16:08 | CONS ---
CC: Reena Chiang NP; Dr. Devaughn Mars; Mati Yoon MD CARDIOLOGY CONSULTATION NOTE: DATE OF CONSULT: 12/23/16 REASON FOR CONSULTATION: Recurrent congestive heart failure, assistance with prognosis and future therapeutic options. CHIEF COMPLAINT: Chest pressure and shortness of breath. HISTORY OF PRESENT ILLNESS: Mr. Jacobs is an 89-year-old patient who sees Dr. Devaughn Mars and Dr. Mati Yoon, and is currently a resident of [place]. He was admitted in June and then on 12/06/16, with congestive heart failure. His echo earlier this month showed an ejection fraction of 35% to 40%, moderate to severe aortic stenosis, moderate to severe mitral insufficiency, and the patient additionally has a history of known atherosclerotic heart disease and renal insufficiency. The patient's transfer notes from [place] document that he complained of the sensation of pressure in his chest like someone was sitting on it. The patient has been short of breath 48 hours since admission and yesterday was very winded. He states he is much better today and that he is "having a good day." The patient was a difficult historian. He is hard of hearing and elderly, but the patient clearly states that he does salt his food. He does not think he has had any food from outside the facility brought in by his family. PAST MEDICAL HISTORY: 1. Coronary artery disease, bypass surgery in 2002, multiple stents history. 2. Aortic stenosis. 3. Recurrent congestive heart failure. 4. COPD. 5. Chronic renal insufficiency. 6. Dyslipidemia. 7. Chronic pedal edema. 8. Obstructive sleep apnea with CPAP. 9. Hypertension. 10. Hard of hearing (cochlear implant). 11. Hypothyroid. 12. Obesity. 13. Osteoarthritis. 14. Neuropathy. 15. History of stroke. 16. Benign prostatic hypertrophy. 17. Melanoma. PAST SURGICAL HISTORY: Includes: 1. His bypass surgery in 2002. 2. Pacemaker/ICD. 3. Cochlear implant. 4. Laparoscopic cholecystectomy. CURRENT INPATIENT MEDICATIONS: Include: 1. Tylenol p.r.n. 2. Ventolin inhaler. 3. Eliquis 2.5 mg b.i.d. 4. Lipitor 10 mg q.h.s. 5. Klonopin 0.5 mg b.i.d. 6. Eplerenone 50 mg a day. 7. Synthroid 137 mcg 5 days a week and 68.5 mg. 8. Lopressor 75 mg b.i.d. 9. Formoterol inhaler. 10. Morphine 5 mg p.r.n. 11. Prilosec 20 mg a day. 12. Potassium 20 mEq a day. 13. Flomax 0.4 mg a day. 14. Demadex 20 mg b.i.d. ALLERGIES: Include CLARITHROMYCIN AND SPIRONOLACTONE. FAMILY HISTORY: Significant in that his mother had a history of heart attack and in her 70s. His father of alcoholic complications. SOCIAL HISTORY: The patient living in [place], wheelchair bound. No history of tobacco use currently. Occasional alcohol intake. REVIEW OF SYSTEMS: Somewhat difficult because of the patient's hearing, but he denies any recent changes in medication, admits to eating salt. He did have orthopnea prior to admission to the hospital, not currently coughing, no productive sputum. No gastrointestinal symptoms. No trouble urinating. No fevers, chills or sweats. No palpitations or ICD shocks. All other 14-point review of systems was negative. PHYSICAL EXAMINATION: On exam, the patient is 6 feet, weighs 214 pounds with a BMI of 29. Vitals on admission, 09/19/16, showed blood pressure 97/64, pulse 80 , respiratory rate was 18 to 26, oxygen saturation 99% on nasal cannula and temperature 96.9. Currently, the patient's blood pressure 102/60, pulse 83, respiratory rate 20, and oxygen saturation 99% on 40% oxygen. General Appearance: Chronically ill-appearing elderly gentleman lying at 30 degrees, appears comfortable. Psychologically, pleasant and cooperative. Neurologically , awake, alert and oriented to person and place. I did not evaluate for time. Skin: Age appropriate changes. His lower extremities show evidence of chronic venous stasis up to the upper leg. No appreciable cyanosis of the lips or nail beds. HEENT: Pupils are equal and round. Mucous membranes moderately moist. Neck: Without obvious increase in JVP. Palpable carotid pulses. Respirations : Had rhonchi that cleared with coughing and were otherwise clear but distant. No wheezing, rales or rhonchi. Coronary: S1, S2 regular, very distant. He has a high flow oxygen and heart sounds were difficult to hear, but no clear- cut systolic or diastolic murmurs heard in any position. Abdomen: Overweight. Active bowel sounds. Not soft. No hepatomegaly. No splenomegaly. No bruits. Lower Extremities: Show 2 to 3+ pitting edema that is close to symmetrical. DIAGNOSTIC STUDIES/LAB DATA: Chest x-ray on admission, 12/20/16, shows mild congestive heart failure and cardiomegaly. EKG from 12/20/16, consistent with underlying atrial fibrillation and ventricular pacing with a paced left bundle branch block type morphology at a rate of 80 beats a minute and one to one ventricular capture. When this is compared with his EKG of June 2016, the Afib replaces sinus rhythm and when compared with 12/08/16, the most recent EKG, this too is consistent with Afib/ flutter. ICD interrogation from 12/06/16, confirms he has a [employer] DR 2240 pacer implanted on 04/25/15. At that time, he was programmed in dual chamber mode with a low rate of 70 beats a minute and intracardiac electrograms confirmed that he was in atrial fibrillation, although this appears intermittent. He ventricularly paces predominantly almost entirely in the lower rate, and looking at his AT/AF burden, it appears he went into Afib once in May, once in September and then near the time of interrogation in November. Episode data concurs with this. White count 9.2, hemoglobin 12.3, hematocrit 37, platelets 224,000. ABG done yesterday at 16:45; pH 7.43, pCO2 39, pO2 71, oxygen saturation 97%. Sodium 135 , potassium 3.2, chloride 98, bicarb 30, BUN 30, creatinine 2.0, glucose 91. BNP is 621. Urinalysis unremarkable. Echo from 12/08/16 shows moderate to severe aortic stenosis; median gradient 10 mmHg. Aortic valve area by VTI is 1 sq cm, dimensional index 0.28 to 0.31, moderate to severe mitral insufficiency, mild tricuspid insufficiency, ejection fraction was 35% to 40% with akinesis of the distal anterior wall and apex and septal dyskinesis consistent with this paced rhythm. PA pressure was estimated at 42 mmHg. IMPRESSION: In summary, Mr. Jacobs is an 89-year-old gentleman with an ischemic cardiomyopathy, valvular heart disease with aortic stenosis, mitral insufficiency, chronic renal insufficiency and multiple comorbidities as above, admitted with shortness of breath, sensation of pressure on the chest, and evidence of congestive heart failure on chest x-ray, and labs of brain natriuretic peptide confirm. It looks like the patient has been in atrial fibrillation this month and that it is new/recurrent, and additionally the patient is not limiting salt intake and both of these are likely contributing to his rehospitalization within just a few days to weeks. Low blood pressures are limiting the ability to diurese the patient and in other ways optimize his medical management. Options going forward would include electrical cardioversion as he has been on Eliquis over a month, since August of this year per communication with Dr. Ambrocio or GAURAV-guided cardioversion if a breech in dosing, but per [place] this is not the case. Initiation of amiodarone is also recommended as the patient is at high risk of recurrent afib. This plan was discussed with Dr. Ambrocio and he is in agreement. Additional recommendations could include a trial of converting metoprolol to Coreg at lower doses as based on his pacemaker interrogation earlier this month , he appears pacemaker dependent and we are not trying to decrease ventricular response of his Afib. I reviewed multiple old notes including Dr. Finnegan's who is averse to initiating an ESDRAS inhibitor and I think it is reasonable to optimize his diuretics including eplerenone instead as he has a tendency towards volume overload as long as his potassium tolerates this. I do not feel he is a candidate for Corlanor or Entresto. Additional recommendations will be made pending his response to the above. I am aware he has been seen by hospice care/palliative care and he is chronically ill, so even if we do adjust his medical management and cardiovert him, I feel it appropriate to proceed with a palliative care approach. At this point, I do not see that he is a surgical candidate for aortic valve replacement, additional terminal press operator plans and prognosis can be evaluated at his upcoming appointment with Dr. Ambrocio. [id number]/[facility] #: [id number] AGUSTIN
--- NOTE | 2016-12-23 16:36 | RAD ---
INDICATION: Shortness of breath. COMPARISON: Comparison is made with a prior chest x-ray study from December 20, 2016. TECHNIQUE: A CT scan of the chest was performed without intravenous contrast. Contiguous axial sections were obtained from the lung apices through the lung bases. Images were reconstructed in the coronal and sagittal planes. FINDINGS: There is a moderate right pleural effusion and a small left pleural effusion. There is nodularity present in the superior portion of the left major fissure which measures fluid density most consistent with localized fluid. There is prominence of the interstitial markings and scattered groundglass opacities with more focal infiltrates present dependently in both lower lobes possibly representing atelectasis. No significant enlarged mediastinal or hilar lymph nodes are seen. The heart is mildly enlarged. No pericardial effusion is present. There are prominent coronary artery calcifications. The thoracic aorta is normal in caliber. There is moderate calcific plaque present. Images of the upper abdomen demonstrate diffuse fatty infiltration of the pancreas. The patient is status post cholecystectomy. No acute finding is seen. No significant focal osseous abnormality is seen. IMPRESSION: FINDINGS MOST CONSISTENT WITH CONGESTIVE HEART FAILURE LESS LIKELY PNEUMONIA.
--- NOTE | 2016-12-23 17:41 | PN ---
Subjective Date of Service: 12/23/16 Interval History: Patient seen at bedside earlier this morning. He was resting comfortably. He denies pain, but still is stating that the end is near. Family History: Unchanged from Admission Social History: Unchanged from Admission Past Medical History: Unchanged from Admission Objective Active Medications: Acetaminophen (Tylenol Tab*) 650 mg PO Q4H PRN Albuterol (Ventolin Hfa Inhaler*) 1 puff INH Q4H PRN Amiodarone HCl (Cordarone Tab*) 400 mg PO DAILY ISAURA Apixaban (Eliquis) 2.5 mg PO BID ISAURA Atorvastatin Calcium (Lipitor*) 10 mg PO BEDTIME ISAURA Clonazepam (Klonopin Tab(*)) 0.5 mg PO BID PRN Eplerenone (Inspra (Nf)) 50 mg PO DAILY ISAURA Levothyroxine Sodium (Synthroid Tab*) 137 mcg PO MoTuWeThFrSa@0600 ISAURA Levothyroxine Sodium (Synthroid Tab*) 68.5 mcg PO Seymour@0600 ISAURA Metoprolol Tartrate (Lopressor Tab*) 50 mg PO BID ISAURA Mometasone Furoate/Formoterol Fumar (Dulera 200/5 Mdi*) 1 puff INH BID ISAURA Morphine Sulfate (Morphine Oral.Soln 10 Mg*) 5 mg PO Q4H PRN Omeprazole (Prilosec Cap*) 20 mg PO DAILY ISAURA Potassium Chloride (Klor Con Er Tab*) 20 meq PO DAILY ISAURA Tamsulosin HCl (Flomax Cap*) 0.4 mg PO BEDTIME ISAURA Torsemide (Demadex*) 20 mg PO BID [facility] 12/23/16 12/23/16 12/23/16 08:11 09:00 10:00 Temperature Pulse Rate 70 77 80 Respiratory 20 21 23 Rate Blood Pressure 102/60 (mmHg) O2 Sat by Pulse 100 99 96 Oximetry Oxygen Devices in Use Now: None Appearance: sitting up in bed, using some accessory muscle use Eyes: No Scleral Icterus, PERRLA Ears/Nose/Mouth/Throat: NL Teeth, Lips, Gums Neck: NL Appearance and Movements; NL JVP Respiratory: Symmetrical Chest Expansion and Respiratory Effort, Clear to Auscultation Cardiovascular: - - 3/6 systolic murmur; irregularly irregular Abdominal: NL Sounds; No Tenderness; No Distention Extremities: - - 2-3+ edema Skin: No Rash or Ulcers Neurological: Alert and Oriented x 3, NL Muscle Strength and Tone Lines/Tubes/Other Access: Clean, Dry and Intact Peripheral IV Nutrition: Taking PO's Result Diagrams: 12/20/16 13:26 12/23/16 05:32 Assess/Plan/Problems-Billing Mr Jacobs is an 89 yo M who has a h/o moderate to severe , 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 - Patient Problems (1) Acute respiratory failure with hypoxia Comment: This is likely multifactorial - CHF, worsening COPD, as well as anxiety. Currently unable to further diurese him. He tolerated slight wean of the vapotherm and morphine helps decrease his work of breathing. Palliative saw again today in the setting of his new oxygen requirements. Will get CTA of chest to see if emphysema worse and then will re-assess hospice eligibility. It may be difficult to wean vapotherm. (2) Acute on chronic systolic CHF (congestive heart failure) Comment: The patient has acute on chronic systolic CHF. Evaluate by Cardiology today for recommendation to further optimize his medical management. Atrial fibrillation is new since June (possible around August when Eliquis started which was confirmed with [place]). Will replete potassium and try to cardiovert in AM to see if this will help with his forward flow/cardiac output and precent further fluid accumulation. Amiodarone started today in anticipation of cardioversion. Holding on further diuretics given low blood pressure and stable creatinine. Appreciate palliative consult. Currently he is NOT a candidate for hospice. Started low dose klonopin for anxiety as well as morphine to help decrease work of breathing. (3) CKD (chronic kidney disease) stage 3, GFR 30-59 ml/min Comment: The patient has baseline stage III CKD with a baseline creatinine around 1.5-1.6. Creatinine has held/slightly increased at 2.0. Rising creatinine from aggressive diuresis and poor cardiac output. Given his low blood pressure, will restart home diuretics and hold from any further aggressive diuresis. With his worsening renal failure it is becoming more difficult to treat his heart failure and his daughter is aware. (4) CAD (coronary artery disease) Comment: No complaints at this time. Continue metoprolol and statin (5) COPD (chronic obstructive pulmonary disease) Comment: No signs of exacerbation. Continue albuterol prn and dulera. (6) TRISHA on CPAP Comment: Continue CPAP with sleep. (7) Hypothyroidism Comment: Continue current dose of levothyroxine. (8) GERD (gastroesophageal reflux disease) Comment: Continue omeprazole. (9) BPH (benign prostatic hyperplasia) Comment: Continue tamsulosin. (10) DVT prophylaxis Comment: Ramirez (11) DNR (do not resuscitate)
[2016-12-23 17:55] LABS: Magnesium 2.2 mg/dL (1.9-2.7)
[2016-12-23] MEDS: Amiodarone TAB* 400 MG PO SCH (18:31)
[2016-12-23] MEDS: Tamsulosin CAP* 0.4 MG PO SCH (21:03)
[2016-12-23] MEDS: Atorvastatin* 10 MG TAB PO SCH (21:03)
[2016-12-24] MEDS: clonazePAM TAB(*) 0.5 MG PO PRN (02:17)
[2016-12-24] MEDS: Levothyroxine TAB* 137 MCG TAB PO SCH (06:11)
[2016-12-24 06:46] LABS: BUN/Creatinine Ratio 15.9 (8-20); Calcium 8.8 mg/dL (8.6-10.3); EGFR African American 40.4 (>60); EGFR Non-African American 31.4 (>60); Potassium 3.4 mmol/L (3.5-5.0)
[2016-12-24] MEDS: Potassium Chlor TAB* 20 MEQ TAB.ER PO SCH (07:52)
[2016-12-24] MEDS: Amiodarone TAB* 400 MG PO SCH (07:53)
[2016-12-24] MEDS: Omeprazole CAP* 20 MG PO SCH (07:54)
[2016-12-24] MEDS: Metoprolol Tartrate TAB* 50 mg PO SCH ×2 (07:56→20:42)
[2016-12-24] MEDS: Mometasone/Formoter 200/5 MDI INH SCH ×2 (08:07→20:03)
[2016-12-24] MEDS ORDERED: Potassium Chlor TAB* 20 MEQ TAB.ER PO ONE (08:07)
[2016-12-24] MEDS ORDERED: Torsemide TAB* 20 MG PO SCH (09:00)
--- NOTE | 2016-12-24 09:06 | PN ---
Subjective Date of Service: 12/24/16 Interval History: Patient seen and examined at bedside. Patient awake and conversant. Asking if the procedure will "give him more miles." States that his breathing feels improved. Still on 30L. States he had some trouble sleeping last night and then took some medicine and had good rest. Family History: Unchanged from Admission Social History: Unchanged from Admission Past Medical History: Unchanged from Admission Objective Active Medications: Acetaminophen (Tylenol Tab*) 650 mg PO Q4H PRN Albuterol (Ventolin Hfa Inhaler*) 1 puff INH Q4H PRN Amiodarone HCl (Cordarone Tab*) 400 mg PO DAILY ISAURA Apixaban (Eliquis) 2.5 mg PO BID ISAURA Atorvastatin Calcium (Lipitor*) 10 mg PO BEDTIME ISAURA Clonazepam (Klonopin Tab(*)) 0.5 mg PO BID PRN Eplerenone (Inspra (Nf)) 50 mg PO DAILY ISAURA Levothyroxine Sodium (Synthroid Tab*) 137 mcg PO MoTuWeThFrSa@0600 ISAURA Levothyroxine Sodium (Synthroid Tab*) 68.5 mcg PO Seymour@0600 ISAURA Metoprolol Tartrate (Lopressor Tab*) 50 mg PO BID ISAURA Mometasone Furoate/Formoterol Fumar (Dulera 200/5 Mdi*) 1 puff INH BID ISAURA Morphine Sulfate (Morphine Oral.Soln 10 Mg*) 5 mg PO Q4H PRN Omeprazole (Prilosec Cap*) 20 mg PO DAILY ISAURA Potassium Chloride (Klor Con Er Tab*) 20 meq PO DAILY ISAURA Tamsulosin HCl (Flomax Cap*) 0.4 mg PO BEDTIME ISAURA Torsemide (Demadex*) 20 mg PO DAILY ISAURA Vital Signs 12/23/16 12/23/16 12/23/16 10:00 10:01 11:00 Temperature Pulse Rate 80 80 79 Respiratory 23 22 38 Rate Blood Pressure 111/51 (mmHg) O2 Sat by Pulse 96 97 99 Oximetry 12/23/16 12/23/16 12/23/16 12:00 12:01 13:00 Temperature Pulse Rate 78 80 80 Respiratory 24 26 23 Rate Blood Pressure 89/64 93/60 (mmHg) O2 Sat by Pulse 100 100 100 Oximetry 12/23/16 12/23/16 12/23/16 14:00 15:00 16:00 Temperature Pulse Rate 80 81 80 Respiratory 20 33 22 Rate Blood Pressure 96/67 91/67 93/72 (mmHg) O2 Sat by Pulse 99 100 100 Oximetry 12/23/16 12/23/16 12/23/16 17:00 17:04 18:00 Temperature Pulse Rate 87 80 78 Respiratory 23 17 17 Rate Blood Pressure 101/66 108/77 (mmHg) O2 Sat by Pulse 98 99 99 Oximetry 12/23/16 12/23/16 12/23/16 19:00 20:00 20:01 Temperature 97.9 F Pulse Rate 80 76 80 Respiratory 21 20 18 Rate Blood Pressure 100/63 119/65 (mmHg) O2 Sat by Pulse 100 100 98 Oximetry 12/23/16 12/23/16 12/23/16 21:00 21:15 22:00 Temperature Pulse Rate 80 79 80 Respiratory 21 21 19 Rate Blood Pressure 88/68 100/59 98/59 (mmHg) O2 Sat by Pulse 99 91 98 Oximetry 12/23/16 12/23/16 12/24/16 23:00 23:17 00:00 Temperature 96.9 F Pulse Rate 79 78 80 Respiratory 21 21 25 Rate Blood Pressure 98/67 95/77 (mmHg) O2 Sat by Pulse 100 100 97 Oximetry 12/24/16 12/24/16 12/24/16 01:00 02:00 02:55 Temperature Pulse Rate 80 80 Respiratory 16 11 15 Rate Blood Pressure 93/67 106/68 (mmHg) O2 Sat by Pulse 100 100 Oximetry 12/24/16 12/24/16 12/24/16 03:00 04:00 05:00 Temperature 98.2 F Pulse Rate 77 80 78 Respiratory 24 24 22 Rate Blood Pressure 98/58 104/68 101/67 (mmHg) O2 Sat by Pulse 97 97 100 Oximetry 12/24/16 12/24/16 12/24/16 05:43 06:00 07:00 Temperature Pulse Rate 78 80 Respiratory 20 22 18 Rate Blood Pressure 96/62 99/62 (mmHg) O2 Sat by Pulse 97 99 Oximetry 12/24/16 12/24/16 12/24/16 07:49 08:00 08:23 Temperature Pulse Rate 79 80 Respiratory 18 18 18 Rate Blood Pressure 105/64 101/64 (mmHg) O2 Sat by Pulse 100 97 Oximetry 12/24/16 08:46 Temperature 97.5 F Pulse Rate Respiratory Rate Blood Pressure (mmHg) O2 Sat by Pulse Oximetry Oxygen Devices in Use Now: - - 30L of Vapotherm Eyes: No Scleral Icterus, PERRLA Ears/Nose/Mouth/Throat: NL Teeth, Lips, Gums Neck: NL Appearance and Movements; NL JVP Respiratory: Symmetrical Chest Expansion and Respiratory Effort, - - crackles at right bases; no wheezing. Cardiovascular: - - 3/6 systolic murmur; irregularly irregular Abdominal: NL Sounds; No Tenderness; No Distention Extremities: - - 2+ edema improved Skin: No Rash or Ulcers Neurological: Alert and Oriented x 3, NL Muscle Strength and Tone Lines/Tubes/Other Access: Clean, Dry and Intact Peripheral IV Nutrition: Taking PO's Result Diagrams: 12/20/16 13:26 12/24/16 06:22 Assess/Plan/Problems-Billing Mr Jacobs is an 89 yo M who has a h/o moderate to severe , 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 - Patient Problems (1) Acute respiratory failure with hypoxia Comment: CT chest performed yesterday that shows findings c/w CHF yet BUN rising and CO2 rising with a stable creatinine. Hold on any further aggressive diuresis. Try to wean vapotherm but it may be difficult. Klonipin given overnight which helped the patient sleep. Continue PRN morphine. It may be difficult to wean vapotherm. Palliative care following. (2) Acute on chronic systolic CHF (congestive heart failure) Comment: The patient has acute on chronic systolic CHF. Evaluate by Cardiology . Amiodarone started yesterday and plan for cardioversion this moring. Potassium repleted. CTA findings c/w CHF. Holding on further diuretics given low blood pressure and stable creatinine. Hopeful that return to NSR will help improve cardiac output. Per cardiology, unlikely patient is a candidate for trans-catheter aortic valve replacement. Appreciate palliative consult. Currently he is NOT a candidate for hospice. Started low dose klonopin for anxiety as well as morphine to help decrease work of breathing. (3) CKD (chronic kidney disease) stage 3, GFR 30-59 ml/min Comment: The patient has baseline stage III CKD with a baseline creatinine around 1.5-1.6. Creatinine stable at 2.0. Rising creatinine from aggressive diuresis and poor cardiac output. Given his low blood pressure, will continue home diuretics and hold from any further aggressive diuresis. With his worsening renal failure it is becoming more difficult to treat his heart failure and his daughter is aware. (4) CAD (coronary artery disease) Comment: No complaints at this time. Continue metoprolol and statin (5) COPD (chronic obstructive pulmonary disease) Comment: No signs of exacerbation. Continue albuterol prn and dulera. (6) TRISHA on CPAP Comment: Continue CPAP with sleep. (7) Hypothyroidism Comment: Continue current dose of levothyroxine. (8) GERD (gastroesophageal reflux disease) Comment: Continue omeprazole. (9) BPH (benign prostatic hyperplasia) Comment: Continue tamsulosin. (10) DVT prophylaxis Comment: Ramirez (11) DNR (do not resuscitate) Status and Disposition: Inpatient for CHF. Continue on Vapotherm in ICU for now. Palliative following.
[2016-12-24] MEDS: CMC:Epleronone (NF) 25 MG TAB PO SCH (10:29)
[2016-12-24] MEDS: Apixaban* 2.5 MG TAB PO SCH ×2 (10:29→20:42)
[2016-12-24] MEDS: Morphine ORAL.SOLN 10 mg* 2 MG/ML UDC 5 ml PO PRN ×2 (11:46→19:26)
[2016-12-24] MEDS: KCL 10 MEQ/50 ML IVPREMIX* 10 MEQ/50 ML BAG IV SCH ×3 (18:39→23:21)
[2016-12-24] MEDS: Atorvastatin* 10 MG TAB PO SCH (20:42)
[2016-12-24] MEDS: Torsemide TAB* 20 MG PO SCH (20:42)
[2016-12-24] MEDS: Tamsulosin CAP* 0.4 MG PO SCH (20:42)
[2016-12-24] MEDS ORDERED: KCL 10 MEQ/50 ML IVPREMIX* 10 MEQ/50 ML BAG ONE (23:19)
[2016-12-25] MEDS: Levothyroxine TAB* 137 MCG TAB PO SCH (06:38)
[2016-12-25 06:58] LABS: BUN/Creatinine Ratio 18.6 (8-20); Calcium 8.8 mg/dL (8.6-10.3); EGFR African American 40.9 (>60); EGFR Non-African American 31.8 (>60); Potassium 3.9 mmol/L (3.5-5.0)
[2016-12-25] MEDS: Mometasone/Formoter 200/5 MDI INH SCH ×2 (08:38→20:16)
[2016-12-25] MEDS: Potassium Chlor TAB* 20 MEQ TAB.ER PO SCH (08:42)
[2016-12-25] MEDS: Torsemide TAB* 20 MG PO SCH ×2 (08:42→22:29)
[2016-12-25] MEDS: Omeprazole CAP* 20 MG PO SCH (08:42)
[2016-12-25] MEDS: Apixaban* 2.5 MG TAB PO SCH ×2 (08:42→22:29)
[2016-12-25] MEDS: Amiodarone TAB* 400 MG PO SCH (08:42)
[2016-12-25] MEDS: CMC:Epleronone (NF) 25 MG TAB PO SCH (08:42)
--- NOTE | 2016-12-25 08:46 | PN ---
Subjective Date of Service: 12/25/16 Interval History: Patient seen and examined at bedside. Patient states he feels much better. Patient OOB for breakfast. BP low but patient denies dizziness. Down to 6L on salter. Family History: Unchanged from Admission Social History: Unchanged from Admission Past Medical History: Unchanged from Admission Objective Active Medications: Acetaminophen (Tylenol Tab*) 650 mg PO Q4H PRN Albuterol (Ventolin Hfa Inhaler*) 1 puff INH Q4H PRN Amiodarone HCl (Cordarone Tab*) 400 mg PO DAILY [facility] Apixaban (Eliquis) 2.5 mg PO BID [facility] Atorvastatin Calcium (Lipitor*) 10 mg PO BEDTIME [facility] Clonazepam (Klonopin Tab(*)) 0.5 mg PO BID PRN Eplerenone (Inspra (Nf)) 50 mg PO DAILY [facility] Potassium Chloride (Potassium Chloride 10 Meq/50 Ml Ivpremix*) 10 meq in 50 mls @ 50 mls/hr IV Q1H [facility] Levothyroxine Sodium (Synthroid Tab*) 137 mcg PO MoTuWeThFrSa@0600 [facility] Levothyroxine Sodium (Synthroid Tab*) 68.5 mcg PO Seymour@0600 [facility] Metoprolol Tartrate (Lopressor Tab*) 50 mg PO BID [facility] Mometasone Furoate/Formoterol Fumar (Dulera 200/5 Mdi*) 1 puff INH BID [facility] Morphine Sulfate (Morphine Oral.Soln 10 Mg*) 5 mg PO Q4H PRN Omeprazole (Prilosec Cap*) 20 mg PO DAILY [facility] Potassium Chloride (Klor Con Er Tab*) 20 meq PO DAILY [facility] Tamsulosin HCl (Flomax Cap*) 0.4 mg PO BEDTIME [facility] Torsemide (Demadex*) 20 mg PO BID [facility] Vital Signs 12/24/16 12/24/16 12/24/16 08:46 09:00 09:33 Temperature 97.5 F Pulse Rate 81 Respiratory 19 20 Rate Blood Pressure 96/64 (mmHg) O2 Sat by Pulse 100 Oximetry 12/24/16 12/24/16 12/24/16 10:00 10:31 11:00 Temperature Pulse Rate 80 80 Respiratory 21 23 21 Rate Blood Pressure 100/69 103/68 (mmHg) O2 Sat by Pulse 100 100 Oximetry 12/24/16 12/24/16 12/24/16 11:18 12:00 13:00 Temperature Pulse Rate 79 80 Respiratory 20 19 19 Rate Blood Pressure 120/76 107/75 (mmHg) O2 Sat by Pulse 99 100 Oximetry 12/24/16 12/24/16 12/24/16 13:37 14:00 14:27 Temperature Pulse Rate 82 Respiratory 18 20 23 Rate Blood Pressure 124/74 (mmHg) O2 Sat by Pulse Oximetry 12/24/16 12/24/16 12/24/16 14:31 15:00 15:01 Temperature 97.6 F Pulse Rate 80 77 Respiratory 20 15 Rate Blood Pressure 116/101 (mmHg) O2 Sat by Pulse 100 100 Oximetry 12/24/16 12/24/16 12/24/16 15:04 15:09 16:00 Temperature Pulse Rate 80 80 Respiratory 21 19 20 Rate Blood Pressure 91/63 (mmHg) O2 Sat by Pulse 99 91 Oximetry 12/24/16 12/24/16 12/24/16 16:01 16:56 17:00 Temperature Pulse Rate 79 80 Respiratory 18 20 20 Rate Blood Pressure 90/51 104/61 (mmHg) O2 Sat by Pulse 100 100 Oximetry 12/24/16 12/24/16 12/24/16 17:04 18:00 18:38 Temperature Pulse Rate 80 Respiratory 21 18 18 Rate Blood Pressure 93/59 (mmHg) O2 Sat by Pulse 100 Oximetry 12/24/16 12/24/16 12/24/16 19:00 19:45 20:00 Temperature 98.6 F Pulse Rate 80 79 Respiratory 20 18 17 Rate Blood Pressure 100/55 99/64 (mmHg) O2 Sat by Pulse 100 100 Oximetry 12/24/16 12/24/16 12/24/16 20:47 21:00 21:53 Temperature Pulse Rate 78 Respiratory 17 17 18 Rate Blood Pressure 99/59 (mmHg) O2 Sat by Pulse 100 Oximetry 12/24/16 12/24/16 12/24/16 22:00 23:00 23:01 Temperature Pulse Rate 80 Respiratory 17 18 19 Rate Blood Pressure 94/59 100/84 (mmHg) O2 Sat by Pulse 100 Oximetry 12/24/16 12/24/16 12/25/16 23:34 23:57 00:00 Temperature 98.5 F Pulse Rate 80 80 80 Respiratory 18 17 19 Rate Blood Pressure 100/84 101/61 (mmHg) O2 Sat by Pulse 100 100 100 Oximetry 12/25/16 12/25/16 12/25/16 01:00 02:00 03:00 Temperature Pulse Rate 80 81 80 Respiratory 17 16 17 Rate Blood Pressure 100/62 93/66 92/63 (mmHg) O2 Sat by Pulse 100 94 100 Oximetry 12/25/16 12/25/16 12/25/16 04:00 05:00 06:00 Temperature 98.8 F Pulse Rate 80 80 80 Respiratory 17 14 19 Rate Blood Pressure 89/60 86/59 87/60 (mmHg) O2 Sat by Pulse 100 100 100 Oximetry 12/25/16 12/25/16 07:00 07:24 Temperature Pulse Rate 80 Respiratory 21 17 Rate Blood Pressure 98/62 (mmHg) O2 Sat by Pulse 100 Oximetry Oxygen Devices in Use Now: Nasal Cannula - 30L of Vapotherm Appearance: sitting up in bed, NAD Eyes: No Scleral Icterus, PERRLA Ears/Nose/Mouth/Throat: NL Teeth, Lips, Gums Neck: NL Appearance and Movements; NL JVP Respiratory: Symmetrical Chest Expansion and Respiratory Effort, - - slight crackles at right base Cardiovascular: NL Sounds; No Murmurs; No JVD Abdominal: NL Sounds; No Tenderness; No Distention Extremities: No Edema Skin: No Rash or Ulcers Neurological: Alert and Oriented x 3, NL Muscle Strength and Tone Lines/Tubes/Other Access: Clean, Dry and Intact Peripheral IV Nutrition: Taking PO's Result Diagrams: 12/20/16 13:26 12/25/16 06:30 Additional Lab and Data: Lab Results 12/20/16 12/20/16 12/20/16 Range/Units 13:26 13:26 13:26 WBC 9.2 (3.5-10.8) 10^3/ul RBC 3.98 L (4.0-5.4) 10^6/ul Hgb 12.3 L (14.0-18.0) g/dl Hct 37 L (42-52) % MCV 94 (80-94) fL MCH 31 (27-31) pg MCHC 33 (31-36) g/dl RDW 14 (10.5-15) % Plt Count 224 (150-450) 10^3/ul MPV 8 (7.4-10.4) um3 Neut % (Auto) 73.5 (38-83) % Lymph % (Auto) 11.8 L (25-47) % Walsh % (Auto) 9.9 H (1-9) % Eos % (Auto) 4.2 (0-6) % Baso % (Auto) 0.6 (0-2) % Absolute Neuts (auto) 6.7 (1.5-7.7) 10^3/ul Absolute Lymphs (auto) 1.1 (1.0-4.8) 10^3/ul Absolute Monos (auto) 0.9 H (0-0.8) 10^3/ul Absolute Eos (auto) 0.4 (0-0.6) 10^3/ul Absolute Basos (auto) 0.1 (0-0.2) 10^3/ul Absolute Nucleated RBC 0 10^3/ul Nucleated RBC % 0 Sodium 131 L (133-145) mmol/L Potassium 4.2 (3.5-5.0) mmol/L Chloride 97 L (101-111) mmol/L Carbon Dioxide 26 (22-32) mmol/L Anion Gap 8 (2-11) mmol/L BUN 29 H (6-24) mg/dL Creatinine 2.20 H (0.67-1.17) mg/dL Est GFR ( Amer) 36.4 (>60) Est GFR (Non-Af Amer) 28.3 (>60) BUN/Creatinine Ratio 13.2 (8-20) Glucose 124 H (70-100) mg/dL Lactic Acid 1.9 (0.5-2.0) mmol/L Calcium 8.9 (8.6-10.3) mg/dL Total Bilirubin 0.80 (0.2-1.0) mg/dL AST 7 L (13-39) U/L ALT 6 L (7-52) U/L Alkaline Phosphatase 52 (34-104) U/L Total Creatine Kinase 31 (10-223) U/L CK-MB (CK-2) 2.9 (0.6-6.3) ng/mL Troponin I 0.03 (<0.04) ng/mL C-Reactive Protein 6.68 H (< 5.00) mg/L B-Natriuretic Peptide ( - 100) pg/mL Total Protein 6.7 (6.4-8.9) g/dL Albumin 3.6 (3.2-5.2) g/dL Globulin 3.1 (2-4) g/dL Albumin/Globulin Ratio 1.2 (1-3) 12/20/16 Range/Units 13:26 WBC (3.5-10.8) 10^3/ul RBC (4.0-5.4) 10^6/ul Hgb (14.0-18.0) g/dl Hct (42-52) % MCV (80-94) fL MCH (27-31) pg MCHC (31-36) g/dl RDW (10.5-15) % Plt Count (150-450) 10^3/ul MPV (7.4-10.4) um3 Neut % (Auto) (38-83) % Lymph % (Auto) (25-47) % Walsh % (Auto) (1-9) % Eos % (Auto) (0-6) % Baso % (Auto) (0-2) % Absolute Neuts (auto) (1.5-7.7) 10^3/ul Absolute Lymphs (auto) (1.0-4.8) 10^3/ul Absolute Monos (auto) (0-0.8) 10^3/ul Absolute Eos (auto) (0-0.6) 10^3/ul Absolute Basos (auto) (0-0.2) 10^3/ul Absolute Nucleated RBC 10^3/ul Nucleated RBC % Sodium (133-145) mmol/L Potassium (3.5-5.0) mmol/L Chloride (101-111) mmol/L Carbon Dioxide (22-32) mmol/L Anion Gap (2-11) mmol/L BUN (6-24) mg/dL Creatinine (0.67-1.17) mg/dL Est GFR ( Amer) (>60) Est GFR (Non-Af Amer) (>60) BUN/Creatinine Ratio (8-20) Glucose (70-100) mg/dL Lactic Acid (0.5-2.0) mmol/L Calcium (8.6-10.3) mg/dL Total Bilirubin (0.2-1.0) mg/dL AST (13-39) U/L ALT (7-52) U/L Alkaline Phosphatase (34-104) U/L Total Creatine Kinase (10-223) U/L CK-MB (CK-2) (0.6-6.3) ng/mL Troponin I (<0.04) ng/mL C-Reactive Protein (< 5.00) mg/L B-Natriuretic Peptide 621 H ( - 100) pg/mL Total Protein (6.4-8.9) g/dL Albumin (3.2-5.2) g/dL Globulin (2-4) g/dL Albumin/Globulin Ratio (1-3) Microbiology and Other Data: Microbiology 12/24/16 00:14 Nasal Screen MRSA (PCR)([facility]) - Final Nasal Mrsa Negative Assess/Plan/Problems-Billing Mr Jacobs is an 89 yo M who has a h/o moderate to severe , 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 - Patient Problems (1) Acute respiratory failure with hypoxia Comment: CT chest performed yesterday that shows findings c/w CHF. Discussed with Radiology that likely only 400mL would come out of right side. This morning able to wean down to 6L. Continue gentle diuresis. Creatinine stable. (2) Acute on chronic systolic CHF (congestive heart failure) Comment: The patient has acute on chronic systolic CHF. Cardioversion on hold until amiodarone can be on board for over 48 hours. In addition KCl needs to be greater than 4. Continue low dose torsemide. Plan to possibly cardiovert on Wednesday. Per cardiology, unlikely patient is a candidate for trans-catheter aortic valve replacement. Appreciate palliative consult. Currently he is NOT a candidate for hospice. Started low dose klonopin for anxiety as well as morphine to help decrease work of breathing. (3) CKD (chronic kidney disease) stage 3, GFR 30-59 ml/min Comment: The patient has baseline stage III CKD with a baseline creatinine around 1.5-1.6. Creatinine stable at 1.8. Rising creatinine from aggressive diuresis and poor cardiac output. Continue home diuretics and hold from any further aggressive diuresis. (4) CAD (coronary artery disease) Comment: No complaints at this time. Continue metoprolol and statin (5) COPD (chronic obstructive pulmonary disease) Comment: No signs of exacerbation. Continue albuterol prn and dulera. (6) TRISHA on CPAP Comment: Continue CPAP with sleep. (7) Hypothyroidism Comment: Continue current dose of levothyroxine. (8) GERD (gastroesophageal reflux disease) Comment: Continue omeprazole. (9) BPH (benign prostatic hyperplasia) Comment: Continue tamsulosin. (10) DVT prophylaxis Comment: Ramirez (11) DNR (do not resuscitate) Status and Disposition: Inpatient for CHF. Transfer to floor. Will d/ cardiology possibly earlier cardioversion and d/c over the weekend.
[2016-12-25] MEDS: Metoprolol Tartrate TAB* 50 mg PO SCH ×2 (08:53→22:29)
[2016-12-25] MEDS: KCL 10 MEQ/50 ML IVPREMIX* 10 MEQ/50 ML BAG IV SCH ×3 (08:53→16:05)
--- NOTE | 2016-12-25 11:47 | PN ---
Progress Note - Progress Note Date of Service: 12/25/16 Note: I was asked to see this patient with ischemic cardiomyopathy, EF of 30% and moderate to severe and MR, as well as stage 3 CKD, to reconsider the question of hospice eligibility. The patient is a resident at [facility] [place]. He is not severelt debilitated, but acording to his finish production manager Dr. Ayers, his fluid management is especially challenging because of his renal failure. Since he has mitral regurgitation, his EF which seems quite good at 30 % is actually not an accurate estimation of his cardiac output, since he is ejecting a large portion of his left ventricular contents back into the left atrium. Dr. Ayers feels his prognosis is less than 6 months. There is no further intervention that will improve his prognosis. The patient's daughter Deborah and the patient himself are both accepting of the reality of his end-stage disease. They would like to avoid further hospitalizations, as this is the third one this year, and would welcome comfort measures alone in his residential setting to maximize his quality of life. I have amended the MOLST form to reflect this desire, specifying comfort care only , DNH, and no feeding tube (although the patient has had esophageal strictures and has required dilatation in the past, and did have concerns about being unable to swallow in the future). He also unfortunately witnessed his 's demise in a SNF setting without hospice which involved severe respiratory distress, and he has a great fear of struggling to breath and having air hunger. I assured him that hospice care is very focused on respiratory comfort and can ease those symptoms consistently in the outpatient setting. In conclusion, this patient has end-stage disease, as his combination of limited EF and severe aortic and mitral disease probably contribute to a very limited cardiac output, and especially in combination with his renal compromise , fluid status will be difficult to manage and he is likely to within 6 months. He and his daughter Deborah both agree with comfort/palliative measures to maximize quality of life. He is appropriate for hospice services with a primary diagnosis of end-stage cardiac disease and a secondary diagnosis of renal failure. He should be able to return to [place] on hospice services, with a referral from Dr. Ayers. Thank you for asking me to evaluate him.
[2016-12-25] MEDS ORDERED: KCL 10 MEQ/50 ML IVPREMIX* 10 MEQ/50 ML BAG ONE (16:03)
--- NOTE | 2016-12-25 18:38 | PN ---
Hospitalist Progress Note HOSPITALIST ADDENDUM: Appreciate Palliative involvement. No further plans for cardioversion. Will continue diuretics for comfort and breathing. Patient remains comfortable on 2 L NC. Plan for patient to go back to [place] with Hospice most likely Wednesday.
[2016-12-25] MEDS: Atorvastatin* 10 MG TAB PO SCH (22:29)
[2016-12-25] MEDS: Tamsulosin CAP* 0.4 MG PO SCH (22:29)
[2016-12-26 05:31] LABS: BUN/Creatinine Ratio 20.7 (8-20); Calcium 9.1 mg/dL (8.6-10.3); EGFR African American 42.4 (>60); EGFR Non-African American 32.9 (>60); Potassium 3.5 mmol/L (3.5-5.0)
[2016-12-26] MEDS: Levothyroxine TAB* 137 MCG TAB PO SCH (05:33)
[2016-12-26] MEDS: Mometasone/Formoter 200/5 MDI INH SCH ×2 (07:31→20:14)
[2016-12-26] MEDS: Metoprolol Tartrate TAB* 50 mg PO SCH ×2 (08:42→22:35)
[2016-12-26] MEDS: Potassium Chlor TAB* 20 MEQ TAB.ER PO SCH (08:43)
[2016-12-26] MEDS: Apixaban* 2.5 MG TAB PO SCH ×2 (08:43→22:30)
[2016-12-26] MEDS: Omeprazole CAP* 20 MG PO SCH (08:43)
[2016-12-26] MEDS: CMC:Epleronone (NF) 25 MG TAB PO SCH (08:43)
[2016-12-26] MEDS: Torsemide TAB* 20 MG PO SCH ×2 (08:43→22:34)
[2016-12-26] MEDS: Amiodarone TAB* 400 MG PO SCH (09:29)
--- NOTE | 2016-12-26 11:04 | RAD ---
INDICATION: History of breath COMPARISON: December 20, 2016 TECHNIQUE: An AP portable view obtained at 1050 hours is submitted. FINDINGS: Bones/Soft Tissues: There are no acute bony findings. There is sternotomy. There is left-sided cardiac pacemaker. Cardiomediastinal: The cardiac silhouette is enlarged. There is interstitial edema. Lungs: There are no focal consolidative changes. Pleura: Suspect tiny bilateral effusions. Other: None IMPRESSION: VASCULAR CONGESTIVE FINDINGS WITHOUT SIGNIFICANT RADIOGRAPHIC CHANGE
[2016-12-26] MEDS ORDERED: Albuterol 2.5 MG/3 ML NEB.SOL* (0.083%) INH PRN (11:40)
[2016-12-26] MEDS ORDERED: Albuterol 2.5 MG/3 ML NEB.SOL* (0.083%) ONE (12:05)
[2016-12-26] MEDS: DOXYcycline CAP(*) 100 MG PO SCH ×2 (12:23→22:31)
[2016-12-26] MEDS: GuaiFENesin DM* 5 ML UDC PO PRN ×3 (12:25→22:28)
--- NOTE | 2016-12-26 14:43 | PN ---
Subjective Date of Service: 12/26/16 Interval History: Mr. Jacobs does not feel well this morning. He expresses some disappointment that he will be going on hospice at discharge, and was hoping to have "some more time." He does not understand what hospice means. We discussed this at length. He agrees that he should not have surgery, and that he does wish to have medicines if they will help him to breathe. I reassured him that we can still treat him with medicine to make him more comfortable. He continues to complain of a productive cough, orthopnea, and congestion bothering him today. No chest pain or fevers. In addition, his blood pressure dropped to 90s/60s after his am medications this morning, and he was symptomatic with weakness and fatigue. Family History: Unchanged from Admission Social History: Unchanged from Admission Past Medical History: Unchanged from Admission Objective Active Medications: Acetaminophen (Tylenol Tab*) 650 mg PO Q4H PRN PRN Reason: FEVER/PAIN Albuterol (Ventolin Hfa Inhaler*) 1 puff INH Q4H PRN PRN Reason: WHEEZING Last Admin: 12/21/16 08:53 Dose: 1 puff Albuterol (Ventolin 2.5 Mg/3 Ml Neb.Blanca*) 2.5 mg INH Q4H PRN PRN Reason: SOB/WHEEZING Amiodarone HCl (Cordarone Tab*) 400 mg PO DAILY [facility] Last Admin: 12/26/16 09:29 Dose: 400 mg Apixaban (Eliquis) 2.5 mg PO BID [facility] Last Admin: 12/26/16 08:43 Dose: 2.5 mg Atorvastatin Calcium (Lipitor*) 10 mg PO BEDTIME [facility] Last Admin: 12/25/16 22:29 Dose: 10 mg Clonazepam (Klonopin Tab(*)) 0.5 mg PO BID PRN PRN Reason: ANXIETY Last Admin: 12/24/16 02:17 Dose: 0.5 mg Doxycycline Hyclate (Vibramycin Cap(*)) 100 mg PO BID [facility] Last Admin: 12/26/16 12:23 Dose: 100 mg Eplerenone (Inspra (Nf)) 50 mg PO DAILY [facility] Last Admin: 12/26/16 08:43 Dose: 50 mg Guaifenesin/Dextromethorphan (Robitussin Dm*) 5 ml PO Q4H PRN PRN Reason: COUGH Last Admin: 12/26/16 12:25 Dose: 5 ml Levothyroxine Sodium (Synthroid Tab*) 137 mcg PO MoTuWeThFrSa@0600 [facility] Last Admin: 12/26/16 05:33 Dose: 137 mcg Levothyroxine Sodium (Synthroid Tab*) 68.5 mcg PO Seymour@0600 [facility] Metoprolol Tartrate (Lopressor Tab*) 50 mg PO BID [facility] Last Admin: 12/26/16 08:42 Dose: 50 mg Mometasone Furoate/Formoterol Fumar (Dulera 200/5 Mdi*) 1 puff INH BID [facility] PRN Reason: Protocol Last Admin: 12/26/16 07:31 Dose: Not Given Morphine Sulfate (Morphine Oral.Soln 10 Mg*) 5 mg PO Q4H PRN PRN Reason: PAIN Last Admin: 12/24/16 19:26 Dose: 5 mg Omeprazole (Prilosec Cap*) 20 mg PO DAILY [facility] Last Admin: 12/26/16 08:43 Dose: 20 mg Potassium Chloride (Klor Con Er Tab*) 20 meq PO DAILY [facility] Last Admin: 12/26/16 08:43 Dose: 20 meq Tamsulosin HCl (Flomax Cap*) 0.4 mg PO BEDTIME [facility] Last Admin: 12/25/16 22:29 Dose: 0.4 mg Torsemide (Demadex*) 20 mg PO BID [facility] Last Admin: 12/26/16 08:43 Dose: 20 mg Vital Signs 12/25/16 12/25/16 12/25/16 14:39 15:21 15:39 Temperature Pulse Rate Respiratory 14 18 20 Rate Blood Pressure (mmHg) O2 Sat by Pulse Oximetry 12/25/16 12/25/16 12/26/16 16:12 20:00 00:04 Temperature 98.3 F 99.5 F 98.1 F Pulse Rate 80 80 80 Respiratory 20 20 18 Rate Blood Pressure 99/48 111/67 100/59 (mmHg) O2 Sat by Pulse 100 100 95 Oximetry 12/26/16 12/26/16 12/26/16 04:04 07:56 08:00 Temperature 98.1 F 99.4 F Pulse Rate 80 80 Respiratory 18 18 19 Rate Blood Pressure 107/55 91/66 (mmHg) O2 Sat by Pulse 90 98 Oximetry 12/26/16 12/26/16 12/26/16 08:35 11:23 11:35 Temperature 97.6 F Pulse Rate 80 Respiratory 20 Rate Blood Pressure 115/60 90/60 (mmHg) O2 Sat by Pulse 98 Oximetry 12/26/16 12:21 Temperature Pulse Rate 70 Respiratory 17 Rate Blood Pressure (mmHg) O2 Sat by Pulse 98 Oximetry Oxygen Devices in Use Now: Nasal Cannula - 30L of Vapotherm Appearance: uncomfortable, in no distress, coughs frequently with wet cough productive of brown sputum Eyes: No Scleral Icterus Ears/Nose/Mouth/Throat: NL Teeth, Lips, Gums Neck: Trachea Midline, - - JVP ~12cm H20 Respiratory: - - crackles b/l bases Cardiovascular: RRR, No Edema, - - systolic murmur RUSB with radiation to carotids Abdominal: NL Sounds; No Tenderness; No Distention, No Hepatosplenomegaly Lymphatic: No Cervical Adenopathy Extremities: No Edema Skin: No Rash or Ulcers Result Diagrams: 12/20/16 13:26 12/26/16 04:51 Additional Lab and Data: Lab Results 12/20/16 12/20/16 12/20/16 Range/Units 13:26 13:26 13:26 WBC 9.2 (3.5-10.8) 10^3/ul RBC 3.98 L (4.0-5.4) 10^6/ul Hgb 12.3 L (14.0-18.0) g/dl Hct 37 L (42-52) % MCV 94 (80-94) fL MCH 31 (27-31) pg MCHC 33 (31-36) g/dl RDW 14 (10.5-15) % Plt Count 224 (150-450) 10^3/ul MPV 8 (7.4-10.4) um3 Neut % (Auto) 73.5 (38-83) % Lymph % (Auto) 11.8 L (25-47) % [place] % (Auto) 9.9 H (1-9) % Eos % (Auto) 4.2 (0-6) % Baso % (Auto) 0.6 (0-2) % Absolute Neuts (auto) 6.7 (1.5-7.7) 10^3/ul Absolute Lymphs (auto) 1.1 (1.0-4.8) 10^3/ul Absolute Monos (auto) 0.9 H (0-0.8) 10^3/ul Absolute Eos (auto) 0.4 (0-0.6) 10^3/ul Absolute Basos (auto) 0.1 (0-0.2) 10^3/ul Absolute Nucleated RBC 0 10^3/ul Nucleated RBC % 0 Sodium 131 L (133-145) mmol/L Potassium 4.2 (3.5-5.0) mmol/L Chloride 97 L (101-111) mmol/L Carbon Dioxide 26 (22-32) mmol/L Anion Gap 8 (2-11) mmol/L BUN 29 H (6-24) mg/dL Creatinine 2.20 H (0.67-1.17) mg/dL Est GFR ( Amer) 36.4 (>60) Est GFR (Non-Af Amer) 28.3 (>60) BUN/Creatinine Ratio 13.2 (8-20) Glucose 124 H (70-100) mg/dL Lactic Acid 1.9 (0.5-2.0) mmol/L Calcium 8.9 (8.6-10.3) mg/dL Total Bilirubin 0.80 (0.2-1.0) mg/dL AST 7 L (13-39) U/L ALT 6 L (7-52) U/L Alkaline Phosphatase 52 (34-104) U/L Total Creatine Kinase 31 (10-223) U/L CK-MB (CK-2) 2.9 (0.6-6.3) ng/mL Troponin I 0.03 (<0.04) ng/mL C-Reactive Protein 6.68 H (< 5.00) mg/L B-Natriuretic Peptide ( - 100) pg/mL Total Protein 6.7 (6.4-8.9) g/dL Albumin 3.6 (3.2-5.2) g/dL Globulin 3.1 (2-4) g/dL Albumin/Globulin Ratio 1.2 (1-3) 12/20/16 Range/Units 13:26 WBC (3.5-10.8) 10^3/ul RBC (4.0-5.4) 10^6/ul Hgb (14.0-18.0) g/dl Hct (42-52) % MCV (80-94) fL MCH (27-31) pg MCHC (31-36) g/dl RDW (10.5-15) % Plt Count (150-450) 10^3/ul MPV (7.4-10.4) um3 Neut % (Auto) (38-83) % Lymph % (Auto) (25-47) % [place] % (Auto) (1-9) % Eos % (Auto) (0-6) % Baso % (Auto) (0-2) % Absolute Neuts (auto) (1.5-7.7) 10^3/ul Absolute Lymphs (auto) (1.0-4.8) 10^3/ul Absolute Monos (auto) (0-0.8) 10^3/ul Absolute Eos (auto) (0-0.6) 10^3/ul Absolute Basos (auto) (0-0.2) 10^3/ul Absolute Nucleated RBC 10^3/ul Nucleated RBC % Sodium (133-145) mmol/L Potassium (3.5-5.0) mmol/L Chloride (101-111) mmol/L Carbon Dioxide (22-32) mmol/L Anion Gap (2-11) mmol/L BUN (6-24) mg/dL Creatinine (0.67-1.17) mg/dL Est GFR ( Amer) (>60) Est GFR (Non-Af Amer) (>60) BUN/Creatinine Ratio (8-20) Glucose (70-100) mg/dL Lactic Acid (0.5-2.0) mmol/L Calcium (8.6-10.3) mg/dL Total Bilirubin (0.2-1.0) mg/dL AST (13-39) U/L ALT (7-52) U/L Alkaline Phosphatase (34-104) U/L Total Creatine Kinase (10-223) U/L CK-MB (CK-2) (0.6-6.3) ng/mL Troponin I (<0.04) ng/mL C-Reactive Protein (< 5.00) mg/L B-Natriuretic Peptide 621 H ( - 100) pg/mL Total Protein (6.4-8.9) g/dL Albumin (3.2-5.2) g/dL Globulin (2-4) g/dL Albumin/Globulin Ratio (1-3) Microbiology and Other Data: Microbiology 12/24/16 00:14 Nasal Screen MRSA (PCR)(MAN[facility]ELITO) - Final Nasal Mrsa Negative Assess/Plan/Problems-Billing Mr Jacobs is an 89 yo M who has a h/o moderate to severe , 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 1. Acute on chronic systolic heart failure I agree that he is not a candidate for valve repair, and his prognosis is poor. I discussed this with him again, as has been discussed with Dr. Caldwell. He agrees that a conservative approach is appropriate, but he does fear air hunger. Symptomatically at this time, I am going to start nebulizers for the congestion along with some decongestants. He will benefit from ongoing gentle diuresis, but he is not profoundly volume overloaded at this point. Because he became symptomatic when his blood pressure dropped after his am medications, unfortunately I think we need to back off on his afterload reduction. Will reduce epleronone dose for tomorrow morning. 2. Acute bronchitis Start doxycycline (avoiding macrolides due to interaction with amiodarone) 3. CAD s/p CABG continue asa, statin bb 4. CKD At baseline 5. DIspo--awaiting transfer back to [place] with hospice Status and Disposition: Inpatient for CHF. Transfer to floor. Will d/ cardiology possibly earlier cardioversion and d/c over the weekend.
[2016-12-26] MEDS: Tamsulosin CAP* 0.4 MG PO SCH (22:30)
[2016-12-26] MEDS: Atorvastatin* 10 MG TAB PO SCH (22:30)
--- NOTE | 2016-12-26 23:31 | PN ---
Progress Note - Progress Note Date of Service: 12/26/16 Note: Nursing reports episode of N/V shortly after CPAP placement. No tachypnea, no desaturation. Patient is AA & at baseline. No ondansetron/prochlorperizine/ metoclopramide 2nd prolonged QTc. No lorazepam 2nd desire to retry CPAP. Advised to place on Salter and monitor for short period & attempt to restart CPAP, if no further symptoms arise.
[2016-12-27] MEDS: GuaiFENesin DM* 5 ML UDC PO PRN ×2 (05:59→13:45)
[2016-12-27] MEDS ORDERED: Levothyroxine TAB* 137 MCG TAB PO SCH (06:00)
[2016-12-27] MEDS: Mometasone/Formoter 200/5 MDI INH SCH ×2 (07:43→19:50)
[2016-12-27] MEDS: CMC:Epleronone (NF) 25 MG TAB PO SCH ×2 (08:41→08:53)
[2016-12-27] MEDS: Torsemide TAB* 20 MG PO SCH ×2 (08:47→20:00)
[2016-12-27] MEDS: Apixaban* 2.5 MG TAB PO SCH ×2 (08:47→20:00)
[2016-12-27] MEDS: Omeprazole CAP* 20 MG PO SCH (08:47)
[2016-12-27] MEDS: Potassium Chlor TAB* 20 MEQ TAB.ER PO SCH (08:47)
[2016-12-27] MEDS: DOXYcycline CAP(*) 100 MG PO SCH ×2 (08:47→20:00)
[2016-12-27] MEDS: Metoprolol Tartrate TAB* 50 mg PO SCH (08:50)
[2016-12-27] MEDS: Amiodarone TAB* 400 MG PO SCH (08:52)
[2016-12-27] MEDS: Metoprolol Tartrate TAB* 25 MG PO SCH ×2 (11:28→20:00)
--- NOTE | 2016-12-27 13:29 | PN ---
Subjective Date of Service: 12/27/16 Interval History: Patient seen this morning. Reports breathing seems better today, less congested , had some productive cough overnight. No complaints. BPs soft this morning, decreased metoprolol dose. Family History: Unchanged from Admission Social History: Unchanged from Admission Past Medical History: Unchanged from Admission Objective Active Medications: Acetaminophen (Tylenol Tab*) 650 mg PO Q4H PRN Albuterol (Ventolin Hfa Inhaler*) 1 puff INH Q4H PRN Albuterol (Ventolin 2.5 Mg/3 Ml Neb.Blanca*) 2.5 mg INH Q4H PRN Amiodarone HCl (Cordarone Tab*) 400 mg PO DAILY [facility] Apixaban (Eliquis) 2.5 mg PO BID [facility] Atorvastatin Calcium (Lipitor*) 10 mg PO BEDTIME [facility] Clonazepam (Klonopin Tab(*)) 0.5 mg PO BID PRN Doxycycline Hyclate (Vibramycin Cap(*)) 100 mg PO BID [facility] Eplerenone (Inspra (Nf)) 25 mg PO DAILY [facility] Guaifenesin/Dextromethorphan (Robitussin Dm*) 5 ml PO Q4H PRN Levothyroxine Sodium (Synthroid Tab*) 137 mcg PO MoTuWeThFrSa@0600 [facility] Levothyroxine Sodium (Synthroid Tab*) 68.5 mcg PO Seymour@0600 [facility] Metoprolol Tartrate (Lopressor Tab*) 12.5 mg PO BID [facility] Mometasone Furoate/Formoterol Fumar (Dulera 200/5 Mdi*) 1 puff INH BID [facility] Morphine Sulfate (Morphine Oral.Soln 10 Mg*) 5 mg PO Q4H PRN Omeprazole (Prilosec Cap*) 20 mg PO DAILY [facility] Potassium Chloride (Klor Con Er Tab*) 20 meq PO DAILY [facility] Tamsulosin HCl (Flomax Cap*) 0.4 mg PO BEDTIME [facility] Torsemide (Demadex*) 20 mg PO BID [facility] Vital Signs 12/26/16 12/26/16 12/26/16 16:13 20:00 20:15 Temperature 99.2 F 98.4 F Pulse Rate 80 80 80 Respiratory 16 16 16 Rate Blood Pressure 97/56 101/62 (mmHg) O2 Sat by Pulse 99 98 98 Oximetry 12/27/16 12/27/16 12/27/16 00:19 01:07 04:08 Temperature 98.8 F 98.7 F Pulse Rate 80 80 80 Respiratory 16 16 16 Rate Blood Pressure 135/63 105/58 (mmHg) O2 Sat by Pulse 99 99 99 Oximetry 12/27/16 07:45 Temperature Pulse Rate 80 Respiratory 20 Rate Blood Pressure (mmHg) O2 Sat by Pulse 99 Oximetry Oxygen Devices in Use Now: Nasal Cannula - 3L Appearance: Elderly, M, laying in bed in NAD Eyes: No Scleral Icterus Ears/Nose/Mouth/Throat: Mucous Membranes Moist Neck: NL Appearance and Movements; NL JVP Respiratory: Symmetrical Chest Expansion and Respiratory Effort, - - Rales in B/ L bases Cardiovascular: RRR, - - SANDRA Abdominal: NL Sounds; No Tenderness; No Distention Lymphatic: No Cervical Adenopathy Extremities: - - Some mild LE edema Skin: No Rash or Ulcers Neurological: Alert and Oriented x 3 Result Diagrams: 12/20/16 13:26 12/26/16 04:51 Assess/Plan/Problems-Billing Mr Jacobs is an 89 yo M who has a h/o moderate to severe , 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 3. CAD s/p CABG continue asa, statin bb 4. CKD At baseline 5. DIspo--awaiting transfer back to [place] with hospice - Patient Problems (1) Acute on chronic systolic CHF (congestive heart failure) Current Visit: Yes Comment: Not a candidate for valve repair, and his prognosis is poor. Continue gentle diuresis. Metoprolol decreased this morning along with Eplerenone. Continue nebulizers for the congestion along with some decongestants. Appropriate for hospice, appreciate PC assistance. (2) Acute bronchitis Current Visit: Yes Comment: Continue Doxycycline, Day 2 (3) CAD (coronary artery disease) Current Visit: Yes Comment: Continue decreased metoprolol and statin (4) CKD (chronic kidney disease) stage 3, GFR 30-59 ml/min Current Visit: Yes Comment: The patient has baseline stage III CKD with a baseline creatinine around 1.5-1.6. Creatinine stable. (5) DVT prophylaxis Current Visit: Yes Comment: Eliquis Status and Disposition: Inpatient for CHF, looking into hospice enrollment
[2016-12-27] MEDS: Atorvastatin* 10 MG TAB PO SCH (20:00)
[2016-12-27] MEDS: Tamsulosin CAP* 0.4 MG PO SCH (20:00)
[2016-12-28] MEDS: GuaiFENesin DM* 5 ML UDC PO PRN ×3 (02:25→20:29)
[2016-12-28] MEDS: Levothyroxine TAB* 137 MCG TAB PO SCH (06:01)
--- NOTE | 2016-12-28 08:29 | PN ---
Subjective Date of Service: 12/28/16 Interval History: Patient seen this morning. Reports feeling well, breathing easier, feels appetite is improving. Still with productive cough. Asking about when he may go home. Understands plans for hospice. Family History: Unchanged from Admission Social History: Unchanged from Admission Past Medical History: Unchanged from Admission Objective Active Medications: Acetaminophen (Tylenol Tab*) 650 mg PO Q4H PRN PRN Reason: FEVER/PAIN Albuterol (Ventolin Hfa Inhaler*) 1 puff INH Q4H PRN PRN Reason: WHEEZING Last Admin: 12/21/16 08:53 Dose: 1 puff Albuterol (Ventolin 2.5 Mg/3 Ml Neb.Blanca*) 2.5 mg INH Q4H PRN PRN Reason: SOB/WHEEZING Amiodarone HCl (Cordarone Tab*) 400 mg PO DAILY [facility] Last Admin: 12/27/16 08:52 Dose: 400 mg Apixaban (Eliquis) 2.5 mg PO BID [facility] Last Admin: 12/27/16 20:00 Dose: 2.5 mg Atorvastatin Calcium (Lipitor*) 10 mg PO BEDTIME [facility] Last Admin: 12/27/16 20:00 Dose: 10 mg Clonazepam (Klonopin Tab(*)) 0.5 mg PO BID PRN PRN Reason: ANXIETY Last Admin: 12/24/16 02:17 Dose: 0.5 mg Doxycycline Hyclate (Vibramycin Cap(*)) 100 mg PO BID [facility] Last Admin: 12/27/16 20:00 Dose: 100 mg Eplerenone (Inspra (Nf)) 25 mg PO DAILY [facility] Last Admin: 12/27/16 08:53 Dose: Not Given Guaifenesin/Dextromethorphan (Robitussin Dm*) 5 ml PO Q4H PRN PRN Reason: COUGH Last Admin: 12/28/16 02:25 Dose: 5 ml Levothyroxine Sodium (Synthroid Tab*) 137 mcg PO MoTuWeThFrSa@0600 [facility] Last Admin: 12/28/16 06:01 Dose: 137 mcg Levothyroxine Sodium (Synthroid Tab*) 68.5 mcg PO Seymour@0600 [facility] Last Admin: 12/27/16 05:58 Dose: 68.5 mcg Metoprolol Tartrate (Lopressor Tab*) 12.5 mg PO BID [facility] Last Admin: 12/27/16 20:00 Dose: 12.5 mg Mometasone Furoate/Formoterol Fumar (Dulera 200/5 Mdi*) 1 puff INH BID [facility] PRN Reason: Protocol Last Admin: 12/27/16 19:50 Dose: 1 puff Morphine Sulfate (Morphine Oral.Soln 10 Mg*) 5 mg PO Q4H PRN PRN Reason: PAIN Last Admin: 12/24/16 19:26 Dose: 5 mg Omeprazole (Prilosec Cap*) 20 mg PO DAILY [facility] Last Admin: 12/27/16 08:47 Dose: 20 mg Potassium Chloride (Klor Con Er Tab*) 20 meq PO DAILY [facility] Last Admin: 12/27/16 08:47 Dose: 20 meq Tamsulosin HCl (Flomax Cap*) 0.4 mg PO BEDTIME [facility] Last Admin: 12/27/16 20:00 Dose: 0.4 mg Torsemide (Demadex*) 20 mg PO DAILY [facility] Vital Signs 12/27/16 12/27/16 12/27/16 11:21 15:14 19:37 Temperature 98.4 F 98.5 F 98.7 F Pulse Rate 80 80 80 Respiratory 18 20 20 Rate Blood Pressure 94/43 98/57 96/52 (mmHg) O2 Sat by Pulse 98 100 100 Oximetry 12/27/16 12/27/16 12/27/16 19:52 20:00 23:13 Temperature 98.8 F Pulse Rate 81 80 Respiratory 18 20 20 Rate Blood Pressure 102/55 (mmHg) O2 Sat by Pulse 97 100 Oximetry 12/28/16 04:03 Temperature 98.6 F Pulse Rate 80 Respiratory 20 Rate Blood Pressure 102/58 (mmHg) O2 Sat by Pulse 100 Oximetry Oxygen Devices in Use Now: Nasal Cannula - 3L Appearance: Elderly, M, laying in bed in NAD Eyes: No Scleral Icterus Ears/Nose/Mouth/Throat: Mucous Membranes Moist Neck: NL Appearance and Movements; NL JVP Respiratory: Symmetrical Chest Expansion and Respiratory Effort, - - Diminished in B/L bases, no rales Cardiovascular: RRR, - - SANDRA Abdominal: NL Sounds; No Tenderness; No Distention Lymphatic: No Cervical Adenopathy Extremities: - - Mild LE edema Skin: No Rash or Ulcers Neurological: Alert and Oriented x 3 Result Diagrams: 12/20/16 13:26 12/26/16 04:51 Additional Lab and Data: Lab Results 12/20/16 12/20/16 12/20/16 Range/Units 13:26 13:26 13:26 WBC 9.2 (3.5-10.8) 10^3/ul RBC 3.98 L (4.0-5.4) 10^6/ul Hgb 12.3 L (14.0-18.0) g/dl Hct 37 L (42-52) % MCV 94 (80-94) fL MCH 31 (27-31) pg MCHC 33 (31-36) g/dl RDW 14 (10.5-15) % Plt Count 224 (150-450) 10^3/ul MPV 8 (7.4-10.4) um3 Neut % (Auto) 73.5 (38-83) % Lymph % (Auto) 11.8 L (25-47) % Arroyo % (Auto) 9.9 H (1-9) % Eos % (Auto) 4.2 (0-6) % Baso % (Auto) 0.6 (0-2) % Absolute Neuts (auto) 6.7 (1.5-7.7) 10^3/ul Absolute Lymphs (auto) 1.1 (1.0-4.8) 10^3/ul Absolute Monos (auto) 0.9 H (0-0.8) 10^3/ul Absolute Eos (auto) 0.4 (0-0.6) 10^3/ul Absolute Basos (auto) 0.1 (0-0.2) 10^3/ul Absolute Nucleated RBC 0 10^3/ul Nucleated RBC % 0 Sodium 131 L (133-145) mmol/L Potassium 4.2 (3.5-5.0) mmol/L Chloride 97 L (101-111) mmol/L Carbon Dioxide 26 (22-32) mmol/L Anion Gap 8 (2-11) mmol/L BUN 29 H (6-24) mg/dL Creatinine 2.20 H (0.67-1.17) mg/dL Est GFR ( Amer) 36.4 (>60) Est GFR (Non-Af Amer) 28.3 (>60) BUN/Creatinine Ratio 13.2 (8-20) Glucose 124 H (70-100) mg/dL Lactic Acid 1.9 (0.5-2.0) mmol/L Calcium 8.9 (8.6-10.3) mg/dL Total Bilirubin 0.80 (0.2-1.0) mg/dL AST 7 L (13-39) U/L ALT 6 L (7-52) U/L Alkaline Phosphatase 52 (34-104) U/L Total Creatine Kinase 31 (10-223) U/L CK-MB (CK-2) 2.9 (0.6-6.3) ng/mL Troponin I 0.03 (<0.04) ng/mL C-Reactive Protein 6.68 H (< 5.00) mg/L B-Natriuretic Peptide ( - 100) pg/mL Total Protein 6.7 (6.4-8.9) g/dL Albumin 3.6 (3.2-5.2) g/dL Globulin 3.1 (2-4) g/dL Albumin/Globulin Ratio 1.2 (1-3) 12/20/16 Range/Units 13:26 WBC (3.5-10.8) 10^3/ul RBC (4.0-5.4) 10^6/ul Hgb (14.0-18.0) g/dl Hct (42-52) % MCV (80-94) fL MCH (27-31) pg MCHC (31-36) g/dl RDW (10.5-15) % Plt Count (150-450) 10^3/ul MPV (7.4-10.4) um3 Neut % (Auto) (38-83) % Lymph % (Auto) (25-47) % Arroyo % (Auto) (1-9) % Eos % (Auto) (0-6) % Baso % (Auto) (0-2) % Absolute Neuts (auto) (1.5-7.7) 10^3/ul Absolute Lymphs (auto) (1.0-4.8) 10^3/ul Absolute Monos (auto) (0-0.8) 10^3/ul Absolute Eos (auto) (0-0.6) 10^3/ul Absolute Basos (auto) (0-0.2) 10^3/ul Absolute Nucleated RBC 10^3/ul Nucleated RBC % Sodium (133-145) mmol/L Potassium (3.5-5.0) mmol/L Chloride (101-111) mmol/L Carbon Dioxide (22-32) mmol/L Anion Gap (2-11) mmol/L BUN (6-24) mg/dL Creatinine (0.67-1.17) mg/dL Est GFR ( Amer) (>60) Est GFR (Non-Af Amer) (>60) BUN/Creatinine Ratio (8-20) Glucose (70-100) mg/dL Lactic Acid (0.5-2.0) mmol/L Calcium (8.6-10.3) mg/dL Total Bilirubin (0.2-1.0) mg/dL AST (13-39) U/L ALT (7-52) U/L Alkaline Phosphatase (34-104) U/L Total Creatine Kinase (10-223) U/L CK-MB (CK-2) (0.6-6.3) ng/mL Troponin I (<0.04) ng/mL C-Reactive Protein (< 5.00) mg/L B-Natriuretic Peptide 621 H ( - 100) pg/mL Total Protein (6.4-8.9) g/dL Albumin (3.2-5.2) g/dL Globulin (2-4) g/dL Albumin/Globulin Ratio (1-3) Microbiology and Other Data: Microbiology 12/24/16 00:14 Nasal Screen MRSA (PCR)([place]) - Final Nasal Mrsa Negative Assess/Plan/Problems-Billing Mr Jacobs is an 89 yo M who has a h/o moderate to severe , 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 3. CAD s/p CABG continue asa, statin bb 4. CKD At baseline 5. DIspo--awaiting transfer back to [place] with hospice - Patient Problems (1) Acute on chronic systolic CHF (congestive heart failure) Current Visit: Yes Comment: Not a candidate for valve repair, and his prognosis is poor. Continue gentle diuresis, will decrease to 20 mg daily (dose he was on before attempt to avoid hospitalization with doubling of the dose). Continue decreased Metoprolol and Eplerenone. Continue nebulizers for the congestion along with some decongestants. Appropriate for hospice, appreciate PC assistance. (2) Acute bronchitis Current Visit: Yes Comment: Continue Doxycycline, Day 3 (3) CAD (coronary artery disease) Current Visit: Yes Comment: Continue decreased metoprolol and statin (4) CKD (chronic kidney disease) stage 3, GFR 30-59 ml/min Current Visit: Yes Comment: The patient has baseline stage III CKD with a baseline creatinine around 1.5-1.6. Creatinine stable. (5) DVT prophylaxis Current Visit: Yes Comment: Eliquis Status and Disposition: Inpatient for CHF, looking into hospice enrollment, possible discharge today
[2016-12-28] MEDS: Mometasone/Formoter 200/5 MDI INH SCH ×2 (08:50→19:58)
--- NOTE | 2016-12-28 10:02 | PN ---
Progress Note - Progress Note Date of Service: 12/28/16 Note: Palliative care follow up note: Patient resting comfortably. Woke easily to gentle stimuli. States his breathing is better though still appears conversationally dyspneic. Patient was not sure what the plan was regarding disposition. I spoke with Deborah his daughter and HCP. She states he is worse now than he was when he first arrived and since his clinically status has not improved, he is now eligible for hospice. Recommend also discharging home with low dose morphine as needed for increase work of breathing/air hunger. Daughter is agreeable to hospice and would like to be present for hospice sign on when he returns to [place]. Information relayed to palliative care team.
[2016-12-28] MEDS: CMC:Epleronone (NF) 25 MG TAB PO SCH (10:08)
[2016-12-28] MEDS: Omeprazole CAP* 20 MG PO SCH (10:09)
[2016-12-28] MEDS: Metoprolol Tartrate TAB* 25 MG PO SCH ×2 (10:09→20:29)
[2016-12-28] MEDS: Amiodarone TAB* 400 MG PO SCH (10:09)
[2016-12-28] MEDS: Torsemide TAB* 20 MG PO SCH (10:09)
[2016-12-28] MEDS: Apixaban* 2.5 MG TAB PO SCH ×2 (10:09→20:29)
[2016-12-28] MEDS: DOXYcycline CAP(*) 100 MG PO SCH ×2 (10:09→20:28)
[2016-12-28] MEDS: Potassium Chlor TAB* 20 MEQ TAB.ER PO SCH (10:09)
[2016-12-28] MEDS: Tamsulosin CAP* 0.4 MG PO SCH (20:29)
[2016-12-28] MEDS: Atorvastatin* 10 MG TAB PO SCH (20:29)
[2016-12-29] MEDS: Levothyroxine TAB* 137 MCG TAB PO SCH (05:32)
--- NOTE | 2016-12-29 09:01 | PN ---
Subjective Date of Service: 12/29/16 Interval History: Unable to go back to [place] yesterday. Patient seen this morning eating breakfast. No complaints. Says he is breathing easy, no cough. Says his daughter is looking into additional options. Family History: Unchanged from Admission Social History: Unchanged from Admission Past Medical History: Unchanged from Admission Objective Active Medications: Acetaminophen (Tylenol Tab*) 650 mg PO Q4H PRN Albuterol (Ventolin Hfa Inhaler*) 1 puff INH Q4H PRN Albuterol (Ventolin 2.5 Mg/3 Ml Neb.Blanca*) 2.5 mg INH Q4H PRN Amiodarone HCl (Cordarone Tab*) 400 mg PO DAILY [facility] Apixaban (Eliquis) 2.5 mg PO BID [facility] Atorvastatin Calcium (Lipitor*) 10 mg PO BEDTIME [facility] Doxycycline Hyclate (Vibramycin Cap(*)) 100 mg PO BID [facility] Eplerenone (Inspra (Nf)) 25 mg PO DAILY [facility] Guaifenesin/Dextromethorphan (Robitussin Dm*) 5 ml PO Q4H PRN Levothyroxine Sodium (Synthroid Tab*) 137 mcg PO MoTuWeThFrSa@0600 [facility] Levothyroxine Sodium (Synthroid Tab*) 68.5 mcg PO Seymour@0600 [facility] Metoprolol Tartrate (Lopressor Tab*) 12.5 mg PO BID [facility] Mometasone Furoate/Formoterol Fumar (Dulera 200/5 Mdi*) 1 puff INH BID [facility] Morphine Sulfate (Morphine Oral.Soln 10 Mg*) 5 mg PO Q4H PRN Omeprazole (Prilosec Cap*) 20 mg PO DAILY [facility] Potassium Chloride (Klor Con Er Tab*) 20 meq PO DAILY [facility] Tamsulosin HCl (Flomax Cap*) 0.4 mg PO BEDTIME [facility] Torsemide (Demadex*) 20 mg PO DAILY [facility] Vital Signs 12/28/16 12/28/16 12/28/16 15:29 19:43 20:00 Temperature 98.2 F 98.4 F Pulse Rate 80 80 Respiratory 16 18 18 Rate Blood Pressure 107/53 114/61 (mmHg) O2 Sat by Pulse 92 92 Oximetry 12/28/16 12/29/16 12/29/16 20:01 01:03 04:26 Temperature 98.2 F 97.3 F Pulse Rate 79 81 80 Respiratory 16 20 20 Rate Blood Pressure 103/57 107/61 (mmHg) O2 Sat by Pulse 91 98 98 Oximetry 12/29/16 12/29/16 07:21 07:28 Temperature 98.0 F 98.0 F Pulse Rate 79 79 Respiratory 19 19 Rate Blood Pressure 112/60 112/60 (mmHg) O2 Sat by Pulse 96 96 Oximetry Oxygen Devices in Use Now: Nasal Cannula - 2L Appearance: Elderly, M, laying in bed in NAD Eyes: No Scleral Icterus Ears/Nose/Mouth/Throat: Mucous Membranes Moist Neck: NL Appearance and Movements; NL JVP Respiratory: Symmetrical Chest Expansion and Respiratory Effort, - - Mild rales in R base, otherwise clear Cardiovascular: RRR, - - SANDRA Abdominal: NL Sounds; No Tenderness; No Distention Lymphatic: No Cervical Adenopathy Extremities: - - Trace LE edema Skin: No Rash or Ulcers Neurological: Alert and Oriented x 3 Result Diagrams: 12/20/16 13:26 12/26/16 04:51 Assess/Plan/Problems-Billing Mr Jacobs is an 89 yo M who has a h/o moderate to severe , 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 3. CAD s/p CABG continue asa, statin bb 4. CKD At baseline 5. DIspo--awaiting transfer back to [place] with hospice - Patient Problems (1) Acute on chronic systolic CHF (congestive heart failure) Current Visit: Yes Comment: Not a candidate for valve repair, and his prognosis is poor. Continue gentle diuresis, will continue Torsemide 20 mg daily (dose he was on before attempt to avoid hospitalization with doubling of the dose). Continue decreased Metoprolol and Eplerenone. Continue nebulizers for the congestion along with some decongestants. Appropriate for hospice, appreciate PC assistance. (2) Acute bronchitis Current Visit: Yes Comment: Continue Doxycycline, Day 4 (3) CAD (coronary artery disease) Current Visit: Yes Comment: Continue decreased metoprolol and statin (4) CKD (chronic kidney disease) stage 3, GFR 30-59 ml/min Current Visit: Yes Comment: The patient has baseline stage III CKD with a baseline creatinine around 1.5-1.6. Creatinine stable. (5) DVT prophylaxis Current Visit: Yes Comment: Eliquis Status and Disposition: Inpatient for CHF, looking into hospice enrollment which can be done after discharge
[2016-12-29] MEDS: Mometasone/Formoter 200/5 MDI INH SCH ×2 (09:34→19:56)
[2016-12-29] MEDS: Omeprazole CAP* 20 MG PO SCH (11:22)
[2016-12-29] MEDS: DOXYcycline CAP(*) 100 MG PO SCH ×2 (11:22→20:46)
[2016-12-29] MEDS: Torsemide TAB* 20 MG PO SCH (11:23)
[2016-12-29] MEDS: Metoprolol Tartrate TAB* 25 MG PO SCH ×2 (11:23→20:46)
[2016-12-29] MEDS: Amiodarone TAB* 400 MG PO SCH (11:23)
[2016-12-29] MEDS: CMC:Epleronone (NF) 25 MG TAB PO SCH (11:23)
[2016-12-29] MEDS: Potassium Chlor TAB* 20 MEQ TAB.ER PO SCH (11:23)
[2016-12-29] MEDS: Apixaban* 2.5 MG TAB PO SCH ×2 (11:23→20:45)
[2016-12-29] MEDS: GuaiFENesin DM* 5 ML UDC PO PRN (19:48)
[2016-12-29] MEDS: Tamsulosin CAP* 0.4 MG PO SCH (20:45)
[2016-12-29] MEDS: Atorvastatin* 10 MG TAB PO SCH (20:45)
[2016-12-30] MEDS: Levothyroxine TAB* 137 MCG TAB PO SCH (05:50)
--- NOTE | 2016-12-30 08:09 | DCNOTE ---
Patient seen this morning. No complaints. Still with some cough, no SOB. Understands plans to go to [place] today. On exam, good air movement, no rales appreciated, RRR, SANDRA, no LE edema Plan to discharge to [facility] today with enrollment in hospice.
[2016-12-30] MEDS: Mometasone/Formoter 200/5 MDI INH SCH (08:52)
--- NOTE | 2016-12-30 09:35 | DS ---
CC: Dr. Yoon. DISCHARGE SUMMARY: DATE OF ADMISSION: 12/20/16 DATE OF DISCHARGE: 12/30/16 PRIMARY CARE PHYSICIAN: Dr. Yoon. PRINCIPAL DISCHARGE DIAGNOSES: 1. Acute on chronic systolic congestive heart failure exacerbation. 2. Acute hypoxic respiratory failure. SECONDARY DIAGNOSES: 1. Coronary artery disease. 2. Gastroesophageal reflux disease. 3. Hyperlipidemia. 4. Benign prostatic hypertrophy. 5. Hypertension. 6. Hypothyroidism. 7. History of cerebrovascular accident. 8. Atrial fibrillation. 9. Obstructive sleep apnea, on CPAP. 10. Cochlear implant. DISCHARGE MEDICATION REGIMEN: 1. Amiodarone 400 mg by mouth daily. 2. Eplerenone 25 mg by mouth daily. 3. Metoprolol tartrate 12.5 mg by mouth two times daily. 4. Morphine oral concentrate 5 mg by mouth every 2 hours as needed for shortness of breath. 5. Clonazepam 0.5 mg by mouth 2 times daily as needed for anxiety. 6. Flomax 0.4 mg by mouth at bedtime. 7. Torsemide 20 mg by mouth daily. 8. [place]-3 fatty acids 1 capsule by mouth daily. 9. Omeprazole 20 mg by mouth daily. 10. Potassium chloride 20 mEq by mouth daily. 11. Psyllium with calcium 1 capsule by mouth daily. 12. Simvastatin 20 mg by mouth by bedtime. 13. Synthroid 137 micrograms Wednesday, Wednesday, Wednesday, , Wednesday, and Wednesday; 68.5 micro grams by mouth on Wednesday. 14. Multivitamin 1 tablet by mouth daily. 15. Tylenol 650 mg by mouth every 4 hours as needed for pain. 16. Albuterol 1 puff inhaler every 4 hours as needed for shortness of breath or wheezing. 17. Eliquis 2.5 mg by mouth 3 times daily. 18. Symbicort 1 puff inhaled 2 times daily. STUDIES DURING HOSPITALIZATION: 1. Chest x-ray 12/20/16. Impression: Cardiomegaly with interstitial edema consistent with CHF. 2. Abdominal ultrasound. Impression: No evidence of ascites is noted. 3. CT of the chest 12/23/16. Impression: Findings most consistent with congestive heart failure, m ost likely pneumonia. 4. Chest x-ray 12/26/16. Impression: Vascular congestive findings without significant radiographi c change. CONSULTANTS DURING HOSPITALIZATION: Dr. Michelle Dietrich, Palliative Care and Dr. Anamaria Stokes, Cardio logy. HISTORY OF PRESENT ILLNESS AND HOSPITAL SUMMARY: Please see my full history and physical for full d etails. Briefly, Mr. Jacobs is a pleasant 89-year-old male with a past medical history as above, wh o presents to the hospital with progressive shortness of breath, weight gain and abdominal distentio n. The patient's weight was up significantly from his previous hospitalization. This is his third hospitalization this year and second in November. When speaking with the patient and his daughter in the Emergency Department, they both agreed that maybe shifting focus to comfort care would be the best thing to do at this time. Palliative Care was consulted and Dr. Dietrich evaluated the patient. Initially, it was felt he may not qualify for hospice. Cardiology was initially consulted to consi cruzito some additional options including possible cardioversion. Subsequently, the patient's outpatien t windrower operator, Dr. Ayers, was spoken to and he agreed that the patient would qualify for hospice ba sed on his poor cardiac function. The patient did have some increased work of breathing and was transferred to the ICU and placed on V apotherm. Over the following day his symptoms improved. He was able to be weaned back to nasal can nula and transferred back to the floor. He had some episodes of hypotension. Some of his outpatien t medications were adjusted, specifically his eplerenone and metoprolol; both of which were decrease d. He was also put back on his previous torsemide dose of 20 mg by moth daily, which had been incre ased a few days prior to hospitalization to try to avoid him needing to come back to the hospital. The patient was initially planning to go back to [facility]; however, due to his in creased physical needs, decision was made to pursue placement in SNF. He will be transferred to [facility] or in [place] and the plan will be for the patient to enroll in hospice shortly after he gets the . TIME SPENT: Total time spent on this discharge, 45 minutes. This is a summary of the hospitalization. Please see the full medical record for further details. [id number]/[facility] #: [id number]
[2016-12-30 09:36] VITALS: BP 113/55
[2016-12-30] MEDS: Metoprolol Tartrate TAB* 25 MG PO SCH (11:07)
[2016-12-30] MEDS: Omeprazole CAP* 20 MG PO SCH (11:08)
[2016-12-30] MEDS: Apixaban* 2.5 MG TAB PO SCH (11:08)
[2016-12-30] MEDS: Amiodarone TAB* 400 MG PO SCH (11:08)
[2016-12-30] MEDS: DOXYcycline CAP(*) 100 MG PO SCH (11:08)
[2016-12-30] MEDS: CMC:Epleronone (NF) 25 MG TAB PO SCH (11:08)
[2016-12-30] MEDS: Potassium Chlor TAB* 20 MEQ TAB.ER PO SCH (11:08)
[2016-12-30] MEDS: Torsemide TAB* 20 MG PO SCH (11:08)
== END 2016-12-30 11:30 | DRG 291 ==
LOC: ED 12:52 → MEDTELE 15:03 → ICU 12-22 18:05 → MEDTELE 12-25 15:53 → MED 12-29 07:28
PROVIDERS: ADMIT Hospitalist; ATTEND Hospitalist
DX: I13.0 Hypertensive heart and chronic kidney disease with heart failure and stage 1 through stage 4 chronic kidney disease, or unspecified chronic kidney disease (principal); I50.23 Acute on chronic systolic (congestive) heart failure; J96.01 Acute respiratory failure with hypoxia; I95.9 Hypotension, unspecified; J44.0 Chronic obstructive pulmonary disease with (acute) lower respiratory infection; I48.91 Unspecified atrial fibrillation; N18.3 Chronic kidney disease, stage 3 (moderate); I08.0 Rheumatic disorders of both mitral and aortic valves; I25.10 Atherosclerotic heart disease of native coronary artery without angina pectoris; K21.9 Gastro-esophageal reflux disease without esophagitis; E78.5 Hyperlipidemia, unspecified; J20.9 Acute bronchitis, unspecified; N40.0 Benign prostatic hyperplasia without lower urinary tract symptoms; E03.9 Hypothyroidism, unspecified; I44.7 Left bundle-branch block, unspecified; G47.33 Obstructive sleep apnea (adult) (pediatric); Z95.1 Presence of aortocoronary bypass graft; Z86.73 Personal history of transient ischemic attack (TIA), and cerebral infarction without residual deficits; Z95.0 Presence of cardiac pacemaker; Z88.1 Allergy status to other antibiotic agents; Z88.8 Allergy status to other drugs, medicaments and biological substances; Z82.49 Family history of ischemic heart disease and other diseases of the circulatory system; Z83.79 Family history of other diseases of the digestive system; Z85.820 Personal history of malignant melanoma of skin; Z99.3 Dependence on wheelchair; Z87.891 Personal history of nicotine dependence
CPT/HCPCS: 36415; 36600; 71010; 71020; 71250; 76705; 80048; 80053; 81003; 82550; 82553; 82803; 83605; 83735; 83880; 84132; 84443; 84484; 85025; 86140; 87040; 87641; 93005; 94640; 94760; A9270-GY; J1940; J3480